=== PATIENT | female | born 1980 | race Hispanic/Latino ===

== ENCOUNTER 2016-11-13 19:32 | Emergency (ER) | payer OTHER ==
[2016-11-13] MEDS ORDERED: Ketorolac Tromethamine 30 MG/ML VIAL ONE (20:17)
[2016-11-13 20:50] LABS: #Eosinphils 0.2 thou/uL (0.0-0.7); #Lymphocytes 2.6 thou/uL (1.20-3.40); #Monocytes 0.6 thou/uL (0.11-0.59); #Neutrophils 10.3 thou/uL (1.40-6.50); %Basophils 0.1 % (0.0-1.0); %Eosinophils 1.2 % (0.0-10.0); %Lymphocytes 18.9 % (21.0-51.0); %Monocytes 4.7 % (0.0-10.0); Hematocrit 36.6 % (36.0-47.0); Mean Platelet Volume 7.2 fL (7.4-10.4); Red Blood Cell (RBC) Count 3.88 mill/uL (4.20-5.40); White Blood Cell (WBC) Count 13.7 thou/uL (4.8-10.8)
[2016-11-13 21:13] LABS: ALT (SGPT) 27 U/L (8-55); AST (SGOT) 18 U/L (5-34); Alkaline Phosphatase 90 U/L (40-150); Anion Gap 13 mmol/L (10-20); BUN (Urea Nitrogen) 13 mg/dL (7.0-18.7); Bilirubin, Total 0.2 mg/dL (0.2-1.2); Calc. Creatinine Clearance 0 mL/min (70-130); Calcium 9.1 mg/dL (7.8-10.44); Carbon Dioxide 24 mmol/L (22-29); Chloride 104 mmol/L (98-107); Estimated GFR-MDRD 66; Globulin 3.7 g/dL (2.4-3.5)
[2016-11-13 21:28] LABS: Bilirubin Negative (Negative); Blood, Urine Small (Negative); Glucose, Urine (Dipstick) Negative (Negative); Ketone, Urine Negative (Negative); Nitrite Negative (Negative); Protein, Urine (Dipstick) Negative (Neg-Trace)
[2016-11-13 21:33] LABS: Bacteria/HPF 1+ HPF (None Seen); Hyaline Casts/LPF 0-3 HYALINE CAST LPF (0-3 Hyaline); WBC/HPF 0-3 HPF (0-3)
--- NOTE | 2016-11-13 21:51 | RAD ---
THREE VIEWS RIGHT ANKLE: Indication: Right ankle pain and swelling. Comparison: None. FINDINGS: No acute fracture or subluxation is evident. There is severe enthesopathic change off the calcaneus. IMPRESSION: No acute osseous abnormality. POS: RODDY
--- NOTE | 2016-11-13 22:00 | ULT ---
DOPPLER VENOUS ULTRASOUND OF THE RIGHT LOWER EXTREMITY: History: Right lower extremity pain and swelling. TECHNIQUE: Flores scale, color Doppler, and vascular duplex with spectral analysis was performed of the deep veno us structures of both lower extremities. The common femoral vein, superficial femoral vein, poplitea l vein, posterior tibial vein, proximal greater saphenous, and proximal profunda veins were assessed bilaterally. FINDINGS: There is normal compression, flow, and augmentation seen within the deep venous structures of the ri ght lower extremity. IMPRESSION: No evidence of DVT within the right lower extremity. POS: RODDY
== END 2016-11-13 22:41 | disposition home or self-care (01) ==
LOC: ERS 19:32
DX: L03.116 Cellulitis of left lower limb (principal); G47.30 Sleep apnea, unspecified; E11.43 Type 2 diabetes mellitus with diabetic autonomic (poly)neuropathy; K31.84 Gastroparesis; I10 Essential (primary) hypertension; J45.909 Unspecified asthma, uncomplicated; F41.9 Anxiety disorder, unspecified; F32.9 Major depressive disorder, single episode, unspecified; Z79.84 Long term (current) use of oral hypoglycemic drugs; Z79.899 Other long term (current) drug therapy
CPT/HCPCS: 36415; 80053; 81003; 81015; 85025; 85379; 85652; 86140; 96372; J1885; J2270

== ENCOUNTER 2016-12-23 10:20 | Emergency (ER) | payer OTHER ==
[2016-12-23 10:46] LABS: Bilirubin Negative (Negative); Blood, Urine Negative (Negative); Glucose, Urine (Dipstick) Negative (Negative); Ketone, Urine Negative (Negative); Nitrite Negative (Negative); Protein, Urine (Dipstick) Trace mg/dL (Neg-Trace)
[2016-12-23 10:47] LABS: Bacteria/HPF 1+ HPF (None Seen); Hyaline Casts/LPF 0-3 HYALINE CAST LPF (0-3 Hyaline)
[2016-12-23 10:57] LABS: RBC/HPF 0-3 HPF (0-3)
[2016-12-23] MEDS ORDERED: Ketorolac Tromethamine 60 MG/2 ML VIAL ONE (11:27)
== END 2016-12-23 11:44 | disposition home or self-care (01) ==
LOC: ERS 10:20
DX: N39.0 Urinary tract infection, site not specified (principal); G47.30 Sleep apnea, unspecified; E11.43 Type 2 diabetes mellitus with diabetic autonomic (poly)neuropathy; K31.84 Gastroparesis; I10 Essential (primary) hypertension; F32.9 Major depressive disorder, single episode, unspecified; F41.9 Anxiety disorder, unspecified; J45.909 Unspecified asthma, uncomplicated; Z87.442 Personal history of urinary calculi; Z87.01 Personal history of pneumonia (recurrent)
CPT/HCPCS: 81003; 81015; 81025; 96372; J1885

== ENCOUNTER 2017-02-01 19:22 | Emergency (ER) | payer OTHER ==
[2017-02-01 21:00] LABS: #Lymphocytes 1.8 thou/uL (1.20-3.40); #Monocytes 0.6 thou/uL (0.11-0.59); #Neutrophils 4.6 thou/uL (1.40-6.50); %Basophils 0.5 % (0.0-1.0); %Eosinophils 0.7 % (0.0-10.0); %Lymphocytes 25.2 % (21.0-51.0); Mean Platelet Volume 7.8 fL (7.4-10.4); Red Blood Cell (RBC) Count 4.21 mill/uL (4.20-5.40)
[2017-02-01 21:21] LABS: ALT (SGPT) 64 U/L (8-55); AST (SGOT) 32 U/L (5-34); Alkaline Phosphatase 100 U/L (40-150); Anion Gap 11 mmol/L (10-20); BUN (Urea Nitrogen) 18 mg/dL (7.0-18.7); Bilirubin, Total 0.4 mg/dL (0.2-1.2); Calc. Creatinine Clearance 0 mL/min (70-130); Calcium 9.3 mg/dL (7.8-10.44); Carbon Dioxide 25 mmol/L (22-29); Chloride 103 mmol/L (98-107); Estimated GFR-MDRD 54; Lipase 28 U/L (8-78); Protein, Total 7.7 g/dL (6.0-8.3)
[2017-02-01] MEDS ORDERED: Metoclopramide HCl 10 MG/2 ML VIAL ONE (21:36)
[2017-02-01 21:46] LABS: Bilirubin Negative (Negative); Blood, Urine Moderate (Negative); Glucose, Urine (Dipstick) Negative (Negative); Ketone, Urine Negative (Negative); Nitrite Negative (Negative); Protein, Urine (Dipstick) Trace mg/dL (Neg-Trace)
[2017-02-01 21:48] LABS: Bacteria/HPF 1+ HPF (None Seen); Hyaline Casts/LPF 0-3 HYALINE CAST LPF (0-3 Hyaline); RBC/HPF 21-50 HPF (0-3)
== END 2017-02-01 23:35 | disposition home or self-care (01) ==
LOC: ERS 19:22
DX: R10.13 Epigastric pain (principal); R10.12 Left upper quadrant pain; R10.11 Right upper quadrant pain; R11.10 Vomiting, unspecified; E11.43 Type 2 diabetes mellitus with diabetic autonomic (poly)neuropathy; K31.84 Gastroparesis; F41.9 Anxiety disorder, unspecified; F32.9 Major depressive disorder, single episode, unspecified; J45.909 Unspecified asthma, uncomplicated; I10 Essential (primary) hypertension; Z79.84 Long term (current) use of oral hypoglycemic drugs; Z79.899 Other long term (current) drug therapy; Z87.442 Personal history of urinary calculi
CPT/HCPCS: 36415; 80053; 81003; 81015; 81025; 83690; 85025; 96365; J2765

== ENCOUNTER 2017-02-14 05:41 | Emergency (ER) | payer OTHER ==
[2017-02-14] MEDS ORDERED: Albuterol Sulfate 2.5 mg/0.5 ml Neb ONE (06:08)
[2017-02-14] MEDS ORDERED: predniSONE 20 MG TAB ONE (07:03)
== END 2017-02-14 07:17 | disposition home or self-care (01) ==
LOC: ERS 05:41
DX: J45.901 Unspecified asthma with (acute) exacerbation (principal); J20.9 Acute bronchitis, unspecified; G47.30 Sleep apnea, unspecified; E11.43 Type 2 diabetes mellitus with diabetic autonomic (poly)neuropathy; K31.84 Gastroparesis; I10 Essential (primary) hypertension; F41.9 Anxiety disorder, unspecified; F32.9 Major depressive disorder, single episode, unspecified; Z79.84 Long term (current) use of oral hypoglycemic drugs; Z79.899 Other long term (current) drug therapy
CPT/HCPCS: J7506; J7611; J7620

== ENCOUNTER 2017-03-26 07:50 | Emergency (ER) | payer OTHER ==
[2017-03-26] MEDS ORDERED: Dexamethasone 4 MG TAB ONE (08:31)
== END 2017-03-26 08:51 | disposition home or self-care (01) ==
LOC: ERS 07:50
DX: J45.901 Unspecified asthma with (acute) exacerbation (principal); I10 Essential (primary) hypertension; E11.43 Type 2 diabetes mellitus with diabetic autonomic (poly)neuropathy; K31.84 Gastroparesis; Z87.442 Personal history of urinary calculi; F41.9 Anxiety disorder, unspecified; F32.9 Major depressive disorder, single episode, unspecified; Z87.01 Personal history of pneumonia (recurrent); Z79.84 Long term (current) use of oral hypoglycemic drugs; Z79.899 Other long term (current) drug therapy
CPT/HCPCS: 94640; J7620; J8540

== ENCOUNTER 2017-04-07 10:28 | Outpatient (CLI) | payer OTHER ==
[2017-04-07] MEDS ORDERED: Iopamidol 370 76% 100 ML VIAL ONE (17:19)
== END 2017-04-07 10:29 | disposition home or self-care (01) ==
LOC: BICCT 10:28
PROVIDERS: ATTEND Family Medicine
DX: A49.02 Methicillin resistant Staphylococcus aureus infection, unspecified site (principal); L02.91 Cutaneous abscess, unspecified; Z98.890 Other specified postprocedural states
CPT/HCPCS: 70491

== ENCOUNTER 2017-05-28 06:46 | Emergency (ER) | payer OTHER ==
[2017-05-28] MEDS ORDERED: predniSONE 20 MG TAB ONE (07:05)
[2017-05-28] MEDS ORDERED: Benzonatate 100 MG CAP ONE (07:31)
[2017-05-28] MEDS ORDERED: Sodium Chloride For Inhalation 0.9% 3 ML NEB ONE (08:09)
[2017-05-28] MEDS ORDERED: Albuterol Sulfate 2.5 mg/0.5 ml Neb ONE (08:09)
== END 2017-05-28 09:00 | disposition home or self-care (01) ==
LOC: ERS 06:46
DX: I10 Essential (primary) hypertension; G47.30 Sleep apnea, unspecified; Z79.899 Other long term (current) drug therapy; E11.43 Type 2 diabetes mellitus with diabetic autonomic (poly)neuropathy; K31.84 Gastroparesis; F41.9 Anxiety disorder, unspecified; F32.9 Major depressive disorder, single episode, unspecified; Z87.442 Personal history of urinary calculi; Z87.01 Personal history of pneumonia (recurrent); J45.901 Unspecified asthma with (acute) exacerbation; Z79.84 Long term (current) use of oral hypoglycemic drugs
CPT/HCPCS: 94644; J7506; J7611; J7620

== ENCOUNTER 2017-12-22 23:50 | Emergency (ER) | payer OTHER ==
[2017-12-23 00:17] LABS: #Eosinphils 0.2 thou/uL (0.0-0.7); #Lymphocytes 1.6 thou/uL (1.20-3.40); #Monocytes 0.6 thou/uL (0.11-0.59); #Neutrophils 15.8 thou/uL (1.40-6.50); %Basophils 0.1 % (0.0-1.0); %Lymphocytes 8.5 % (21.0-51.0); %Monocytes 3.2 % (0.0-10.0); %Neutrophils 87.2 % (42.0-75.0); Hemoglobin 14.6 g/dL (12.0-16.0); Mean Corpuscular HGB CONC 32.8 g/dL (32.0-36.0); Mean Corpuscular Hemoglobin 31.5 pg (27.0-31.0); Mean Platelet Volume 8.4 fL (7.4-10.4); Platelet Count 269 thou/uL (130-400); RBC Distribution Width 12.4 % (11.5-14.5); Red Blood Cell (RBC) Count 4.63 mill/uL (4.20-5.40); White Blood Cell (WBC) Count 18.1 thou/uL (4.8-10.8)
[2017-12-23] MEDS ORDERED: diphenhydrAMINE 50 MG/ML VIAL ONE (00:22)
[2017-12-23] MEDS ORDERED: Metoclopramide HCl 10 MG/2 ML VIAL ONE (00:22)
[2017-12-23 00:33] LABS: BHCG - Serum Negative (NEGATIVE); Pregs Control Background? CLEAR/WHITE (CLR/WHITE); Pregs Control Bar Appear? YES (CONTROL BAR)
[2017-12-23 00:42] LABS: ALT (SGPT) 56 U/L (8-55); AST (SGOT) 60 U/L (5-34); Alkaline Phosphatase 102 U/L (40-150); Anion Gap 12 mmol/L (10-20); BUN (Urea Nitrogen) 20 mg/dL (7.0-18.7); Bilirubin, Total 0.7 mg/dL (0.2-1.2); Calc. Creatinine Clearance 0 mL/min (70-130); Calcium 9.5 mg/dL (7.8-10.44); Carbon Dioxide 20 mmol/L (22-29); Chloride 104 mmol/L (98-107); Estimated GFR-MDRD 67; Globulin 4.1 g/dL (2.4-3.5); Glucose 276 mg/dL (70-105); Potassium 4.2 mmol/L (3.5-5.1); Protein, Total 8.1 g/dL (6.0-8.3); Sodium 132 mmol/L (136-145)
[2017-12-23] MEDS ORDERED: Pantoprazole 40 MG VIAL ONE (00:52)
--- NOTE | 2017-12-23 09:56 | CT ---
PRELIMINARY REPORT/[facility]/EMERGENTY AFTER-HOURS PROCEDURE CT Abdomen and Pelvis With Intravenous Contrast EXAM DATE/TIME: 12/23/2017 12:56 AM CLINICAL HISTORY: 37 years old, female; Pain; Abdominal pain; Other: Leukocytosis; Patient HX: PT reports nausea and vo miting onset tonight at 1900. TECHNIQUE: Axial computed tomography images of the abdomen and pelvis with intravenous contrast. Coronal reformatted images were created and reviewed. COMPARISON: No relevant prior studies available. FINDINGS: Lower thorax: No acute findings. ABDOMEN: Liver: Normal attenuation. No mass. Gallbladder and bile ducts: The gallbladder has been surgically removed. Pancreas: Normal. No ductal dilation. Spleen: No splenomegaly. No masses Adrenals: Normal. No mass. Kidneys and ureters: 7 mm right renal stone. Stomach and bowel: No obstruction. No wall thickening Appendix: No evidence of appendicitis. PELVIS: Bladder: Unremarkable as visualized. Reproductive: Unremarkable as visualized. ABDOMEN and PELVIS: Intraperitoneal space: No free air. No significant fluid collection. Bones/joints: Minimal osteoarthritis of the hips. Soft tissues: Unremarkable. Vasculature: Normal. No abdominal aortic aneurysm. Lymph nodes: No enlarged lymph nodes. IMPRESSION: No evidence of acute intra-abdominal or pelvic pathology. Thank you for allowing us to participate in the care of your patient. Dictated and Authenticated by: Mert Dexter MD 12/23/2017 1:20 AM Central Time ([place] & [place]) FINAL REPORT EMERGENT AFTER HOURS CT OF ABDOMEN AND PELVIS PERFORMED WITH INTRAVENOUS CONTRAST ENHANCEMENT: HISTORY: Abdominal pain , leukocytosis. Nausea and vomiting. COMPARISON: A 06/17/2016 study. FINDINGS: The lung bases are clear of any infiltrative process. There are diffuse fatty changes of the liver. The spleen is within normal limits of size. The pancreas region is unremarkable. The gallbladder h as been removed. Right and left adrenal glands are normal in appearance. There is a nonobstructing mid pole right brice al calculus which measures 6-7 mm. There are no ureteral calculi ureteral calculi demonstrated. The re are no significant periaortic or mesenteric nodes. There are some small nodes near the root of th e mesentery fairly similar to the previous exam. CT OF PELVIS PERFORMED WITH CONTRAST ENHANCEMENT: There are follicles involving the adnexal region. No evidence of any free fluid, adenopathy, or mass . The appendix is normal in appearance. IMPRESSION: 1. Fatty changes of the liver. 2. Nonobstructing 6 mm right renal calculus. 3. No acute abnormalities of the abdomen or pelvis. 4. This report is in agreement with the temporary report issued by [facility]. POS: TRISH
[2017-12-23] MEDS ORDERED: Iopamidol 370 76% 100 ML VIAL ONE (13:51)
== END 2017-12-23 02:22 | disposition home or self-care (01) ==
LOC: ERS 23:50
DX: R11.2 Nausea with vomiting, unspecified (principal); R19.7 Diarrhea, unspecified; G47.30 Sleep apnea, unspecified; E11.9 Type 2 diabetes mellitus without complications; I10 Essential (primary) hypertension; J45.909 Unspecified asthma, uncomplicated; F41.9 Anxiety disorder, unspecified; F32.9 Major depressive disorder, single episode, unspecified; Z87.448 Personal history of other diseases of urinary system; Z79.84 Long term (current) use of oral hypoglycemic drugs; Z79.899 Other long term (current) drug therapy
CPT/HCPCS: 36415; 74177; 80053; 84703; 85025; 96361; 96374; 96375; C9113; J1200; J2765

== ENCOUNTER 2018-04-03 00:20 | Observation (INO) | payer OTHER ==
[2018-04-03] MEDS ORDERED: Ondansetron PF 4 MG/2 ML Vial ONE ×2 (00:57→08:55)
[2018-04-03 01:08] LABS: #Basophils 0.1 thou/uL (0.0-0.2); #Eosinphils 0.1 thou/uL (0.0-0.7); #Lymphocytes 2.3 thou/uL (1.20-3.40); #Monocytes 0.6 thou/uL (0.11-0.59); #Neutrophils 12.2 thou/uL (1.40-6.50); %Basophils 0.4 % (0.0-1.0); %Eosinophils 0.9 % (0.0-10.0); %Lymphocytes 15.1 % (21.0-51.0); %Monocytes 4.2 % (0.0-10.0); %Neutrophils 79.4 % (42.0-75.0); Hemoglobin 13.7 g/dL (12.0-16.0); Mean Corpuscular HGB CONC 33.3 g/dL (32.0-36.0); Mean Corpuscular Hemoglobin 32.4 pg (27.0-31.0); Mean Corpuscular Volume 97.3 fL (78.0-98.0); Mean Platelet Volume 8.1 fL (7.4-10.4); Platelet Count 248 thou/uL (130-400); RBC Distribution Width 11.6 % (11.5-14.5); Red Blood Cell (RBC) Count 4.23 mill/uL (4.20-5.40); White Blood Cell (WBC) Count 15.4 thou/uL (4.8-10.8)
[2018-04-03 01:28] LABS: ALT (SGPT) 73 U/L (8-55); AST (SGOT) 56 U/L (5-34); Albumin 3.9 g/dL (3.5-5.0); Alkaline Phosphatase 113 U/L (40-150); Anion Gap 13 mmol/L (10-20); BUN (Urea Nitrogen) 14 mg/dL (7.0-18.7); Bilirubin, Total 0.5 mg/dL (0.2-1.2); Calc. Creatinine Clearance 0 mL/min (70-130); Calcium 9.7 mg/dL (7.8-10.44); Carbon Dioxide 24 mmol/L (22-29); Chloride 102 mmol/L (98-107); Estimated GFR-MDRD 76; Globulin 4.3 g/dL (2.4-3.5); Glucose 198 mg/dL (70-105); Protein, Total 8.2 g/dL (6.0-8.3); Sodium 135 mmol/L (136-145)
[2018-04-03] MEDS ORDERED: Morphine 4 MG/ML VIAL ONE (02:08)
[2018-04-03] MEDS ORDERED: Prochlorperazine 10 MG/2 ML VIAL IVP SCH (02:15)
[2018-04-03 03:32] LABS: BHCG - Serum Negative (NEGATIVE); Pregs Control Background? CLEAR/WHITE (CLR/WHITE); Pregs Control Bar Appear? YES (CONTROL BAR)
[2018-04-03 05:46] LABS: Bilirubin Negative (Negative); Blood, Urine Moderate (Negative); Clarity CLEAR (Clear); Glucose, Urine (Dipstick) 500 mg/dL (Negative); Leukocyte Negative (Negative); Nitrite Negative (Negative); Protein, Urine (Dipstick) Negative (Neg-Trace)
[2018-04-03 05:49] LABS: Bacteria/HPF None Seen HPF (None Seen); Hyaline Casts/LPF 0-3 HYALINE CAST LPF (0-3 Hyaline); Squamous Epithelial None Seen HPF (0-3); WBC/HPF 0-3 HPF (0-3)
[2018-04-03 05:51] LABS: Specific Gravity, Urine 1.056 (1.002-1.036)
[2018-04-03 05:52] LABS: Pregnancy Test - Urine (BHCG) Negative (Negative)
[2018-04-03 05:53] LABS: Pregu Control Background? CLEAR/WHITE (CLR/WHITE); Pregu Control Bar Appear? YES (CONTROL BAR); Specific Gravity 1.056 (1.002-1.036)
[2018-04-03] MEDS ORDERED: Ketorolac Tromethamine 30 MG/ML VIAL ONE (06:45)
--- NOTE | 2018-04-03 07:27 | CT ---
CT OF THE ABDOMEN AND PELVIS WITHOUT IV CONTRAST: Date: 04/03/18 INDICATION: Severe abdominal pain radiating to the back with associated nausea, vomiting, diarrhea, fever, chills , and malaise. COMPARISON: Prior CT of the abdomen and pelvis dated 12/23/17. FINDINGS: The lung bases are clear. There is stable fatty infiltration of the liver. The gallbladder is surgically absent. Right nephrolithiasis is stable. No ureteral calculus or hydronephrosis is evident. The pancreas, spleen, and adrenal glands are normal appearing. There is normal appendix in the right lower quadrant of the abdomen. There is a 2.5 cm cyst involving the left adnexa, which is slightly smaller than on the prior exam wh ere it measured 4.5 cm. Colon is largely decompressed. The small bowel is normal in caliber. No free fluid is evident. The bladder, rectum, and perirectal soft tissues are unremarkable. No acute osseous abnormality is evident. IMPRESSION: 1. No CT explanation for the patient's abdominal pain. 2. Stable fatty liver. 3. Stable right nephrolithiasis. 4. Slowly involuting left adnexal cyst. POS: BH
[2018-04-03 07:38] LABS: Base Excess-Venous -2.2 mmol/L (-2.0 to 3.0); Bicarbonate (HCO3v) 23.3 mmol/L (22.0-28.0); Calcium, Ionized 1.06 mmol/L (See Comments:); Chloride 104 mmol/L (98-107); Hemoglobin - Calc 13.4 g/dL (12.0-16.0); O2 Tension (PvO2) 38.2 mmHg (35.0-45.0); Potassium 3.9 mmol/L (3.5-5.1); Sodium 136 mmol/L (138-145); T. Carbon Dioxide 24.6 mmol/L (22.0-28.0); pH (Venous) 7.353 (7.320-7.430); vO2 Saturation-calc 69.7 % (60.0-85.0)
--- NOTE | 2018-04-03 07:53 | RAD ---
PORTABLE CHEST 1 VIEW: Date: 04/03/18 Time: 0056 hours HISTORY: Chest pain. FINDINGS: Comparison made with exam of 10/30/16. The heart size is normal. No focal areas of consolidation, pneumothoraces, or pleural effusions are s een. IMPRESSION: No acute process. POS: OFF
[2018-04-03] MEDS ORDERED: Acetaminophen 500 MG TAB ONE (09:08)
[2018-04-03] MEDS ORDERED: Iopamidol 370 76% 100 ML VIAL ONE (09:26)
[2018-04-03] MEDS: NS 0.9% w/ 20 MEQ KCL 1,000 ML IV SCH ×2 (14:19→16:56)
--- NOTE | 2018-04-03 14:25 | ULT ---
BILATERAL LOWER EXTREMITY VENOUS DOPPLER ULTRASOUND: Date: 04/03/18 HISTORY: Bilateral lower extremity edema, left greater than right. TECHNIQUE: Flores scale ultrasound with color flow and spectral Doppler imaging of the deep venous systems of the lower extremities was performed bilaterally. FINDINGS: There is good flow, compression, and augmentation noted in the common femoral, femoral, deep femoral, popliteal, posterior tibial, and greater saphenous veins. There is a 1.7 cm lymph node in the left g roin. IMPRESSION: No evidence of deep venous thrombosis in either lower extremity. POS: OFF
[2018-04-03] MEDS ORDERED: Acetaminophen 325 MG TAB ONE (14:48)
[2018-04-03] MEDS: Acetaminophen 325 MG TAB PO PRN ×2 (14:55→20:46)
--- NOTE | 2018-04-03 15:28 | PDOC.FPRHP ---
- History of Present Illness Chief Complaint: nausea, vomting, abdominal pain History of Present Illness: 37 yo f with pmhx of uncontrolled type 2 diabetes and gastroparesis presents with diffuse abdominal pain, nausea and vomiting that started last night. She has also had loose stools that started last night. She was at her mom's house, ate dinner with the family and several hours later approximately at 2230 starting having abdominal pain. She states that her pain is diffuse and achy. She denies all other sx of a cold, congestion, sorethroat, cough, fever. - Allergies/Adverse Reactions Allergies Allergy/AdvReac Type Severity Reaction Status Date / Time No Known Drug Allergies Allergy Verified 11/12/12 02:41 - Home Medications Medication Instructions Recorded Confirmed Type Lisinopril/Hydrochlorothiazide 1 tab PO DAILY 05/29/16 04/03/18 History [Lisinopril-Hctz 20-25 mg Tab] Venlafaxine HCl [Effexor] 75 mg PO DAILY 05/29/16 04/03/18 History metFORMIN HCl [Glucophage] 500 mg PO BID-WM 05/29/16 04/03/18 History Docusate [Colace] 100 mg PO BIDPRN PRN #60 cap 06/07/16 04/03/18 Rx Albuterol Sulfate [Proair 90 mcg IH Q4HR PRN 04/03/18 04/03/18 History Respiclick] Famotidine [Pepcid] 20 mg PO BID 04/03/18 04/03/18 History Fluticasone/Salmeterol [Advair 1 inh IH BID 04/03/18 04/03/18 History Diskus 250/50] Insulin Glargine,Hum.Rec.Anlog 10 units SQ HS 04/03/18 04/03/18 History [Lantus] Ondansetron HCl [Zofran] 4 mg PO Q6HR PRN 04/03/18 04/03/18 History - History PMHx: Type 2 DM Gastroparesis Hx of MRSA cellulitis Nephrolithiasis s/p stent HTN HLD ELDER Anxiety Morbid Obesity PSHx: Cholecystectomy Tonsillectomy/Adenoidectomy Colposcopy Ureteral stent placement FHx: Diabetes-sister HTN-mother Social: denies smoking, alcohol, drug use - Review of Systems General: denies: fever/chills, weight/appetite/sleep changes ENT: denies: nasal congestion, rhinorrhea Respiratory: denies: cough, congestion, shortness of breath Cardiovascular: denies: chest pain, palpitation Gastrointestinal: reports: nausea, vomiting, other (loose bowels) Skin: denies: rashes, lesions Musculoskeletal: denies: pain, tenderness Neurological: denies: numbness, syncope Psychological: denies: anxiety, depression - Vital signs BP: 120/69 HR: 114 RR: 24 Tmax: 100.9 Pox: 98% on RA - Physical Exam Constitutional: NAD, awake, alert and oriented HEENT: normocephalic and atraumatic, PERRLA, normal nasal mucosa, MMM, oropharynx clear Heart: normal S1/S2, pulses present, no edema (tachycardic) Lungs: no respiratory distress, other (mild wheezing bilaterally) Abdomen: soft, bowel sounds present, no masses/distention, other (diffusely tender, no guarding or rigidity) Neurological: no focal deficit, normal sensation -Skin: erythema of left lower extremity Psychiatric: normal mood and affect FMR H&P: Results - Labs Result Diagrams: 04/04/18 05:07 04/04/18 05:07 Lab results: WBC 15.4 thou/uL (4.8-10.8) H 04/03/18 00:57 Hgb 13.7 g/dL (12.0-16.0) 04/03/18 00:57 Hct 41.2 % (36.0-47.0) 04/03/18 00:57 MCV 97.3 fL (78.0-98.0) 04/03/18 00:57 Plt Count 248 thou/uL (130-400) 04/03/18 00:57 Neutrophils % 79.4 % (42.0-75.0) H 04/03/18 00:57 VBG pCO2 42.0 mmHg (40.0-50.0) 04/03/18 07:35 VBG pO2 38.2 mmHg (35.0-45.0) 04/03/18 07:35 Sodium 135 mmol/L (136-145) L 04/03/18 00:57 Potassium 4.0 mmol/L (3.5-5.1) 04/03/18 00:57 Chloride 102 mmol/L (98-107) 04/03/18 00:57 Carbon Dioxide 24 mmol/L (22-29) 04/03/18 00:57 BUN 14 mg/dL (7.0-18.7) 04/03/18 00:57 Creatinine 0.84 mg/dL (0.6-1.1) 04/03/18 00:57 Glucose 198 mg/dL (70-105) H 04/03/18 00:57 Lactic Acid 2.0 mmol/L (0.5-2.2) 04/03/18 00:55 Calcium 9.7 mg/dL (7.8-10.44) 04/03/18 00:57 Total Bilirubin 0.5 mg/dL (0.2-1.2) 04/03/18 00:57 AST 56 U/L (5-34) H 04/03/18 00:57 ALT 73 U/L (8-55) H 04/03/18 00:57 Alkaline Phosphatase 113 U/L (40-150) 04/03/18 00:57 Serum Total Protein 8.2 g/dL (6.0-8.3) 04/03/18 00:57 Albumin 3.9 g/dL (3.5-5.0) 04/03/18 00:57 Lipase 35 U/L (8-78) 04/03/18 00:55 Urine Ketones 15 mg/dL (Negative) H 04/03/18 05:18 Urine Blood Moderate (Negative) H 04/03/18 05:18 Urine Nitrite Negative (Negative) 04/03/18 05:18 Ur Leukocyte Esterase Negative (Negative) 04/03/18 05:18 Urine RBC 11-20 HPF (0-3) H 04/03/18 05:18 Urine WBC 0-3 HPF (0-3) 04/03/18 05:18 Ur Squamous Epith Cells None Seen HPF (0-3) 04/03/18 05:18 Urine Bacteria None Seen HPF (None Seen) 04/03/18 05:18 - Radiology Interpretation CT scan - abdomen Status: image reviewed by me, report reviewed by me CT scan - pelvis Status: image reviewed by me, report reviewed by me (fatty liver, right nephrolithiasis, left adnexal cyst) FMR H&P: A/P - Problem List (1) Sepsis due to cellulitis Current Visit: Yes Status: Acute Code(s): L03.90 - CELLULITIS, UNSPECIFIED; A41.9 - SEPSIS, UNSPECIFIED ORGANISM (2) Hyperglycemia due to type 2 diabetes mellitus Current Visit: Yes Status: Acute Code(s): E11.65 - TYPE 2 DIABETES MELLITUS WITH HYPERGLYCEMIA (3) Gastroparesis due to DM Current Visit: No Status: Chronic Code(s): E11.43 - TYPE 2 DIABETES W DIABETIC AUTONOMIC (POLY)NEUROPATHY; K31.84 - GASTROPARESIS (4) Diabetes mellitus type 2 in obese Current Visit: No Status: Chronic Code(s): E11.9 - TYPE 2 DIABETES MELLITUS WITHOUT COMPLICATIONS; E66.9 - OBESITY, UNSPECIFIED (5) Hypertension Current Visit: No Status: Acute Code(s): I10 - ESSENTIAL (PRIMARY) HYPERTENSION Qualifiers: (6) Hyperlipidemia Current Visit: No Status: Acute Code(s): E78.5 - HYPERLIPIDEMIA, UNSPECIFIED (7) Morbid obesity with BMI of 40.0-44.9, adult Current Visit: No Status: Chronic Code(s): E66.01 - MORBID (SEVERE) OBESITY DUE TO EXCESS CALORIES; Z68.41 - BODY MASS INDEX (BMI) 40.0-44.9, ADULT (8) ELDER (obstructive sleep apnea) Current Visit: No Status: Chronic Code(s): G47.33 - OBSTRUCTIVE SLEEP APNEA (ADULT) (PEDIATRIC) (9) Anxiety Current Visit: Yes Status: Acute Code(s): F41.9 - ANXIETY DISORDER, UNSPECIFIED (10) Mild dehydration Current Visit: Yes Status: Acute Code(s): E86.0 - DEHYDRATION (11) ELDER (obstructive sleep apnea) Current Visit: Yes Status: Acute Code(s): G47.33 - OBSTRUCTIVE SLEEP APNEA ( ADULT) (PEDIATRIC) - Plan 37 yo f with phx of MRSA cellulitis and type 2 diabetes (uncontrolled) presents with diffuse abdominal pain, n/v, admitted for sepsis 2/2 cellulitis of left lower extremity. #Sepsis 2/2 cellulitis -erythema and warmth of left lower extremity with hx of recurrent mrsa cellulitis -started pt on vanc and cefepime -provided an additional 1L of NS with 20KCL to meet 30ml/kg sepsis resuscitation -started on maitenance fluids d/t volume depletion/dehydration -blood and urine cultures sent -repeat cbc, bmp in the am -lactate normal -ordered procalcitonin #Gastroparesis- -Fluid resuscitation and IV/po zofran prn nausea #Dehydration- -mild -provided an additional 1L of NS with 20KCL to meet 30ml/kg sepsis resuscitation -started on maitenance fluids d/t volume depletion/dehydration -monitor I/Os and urine output #Hyperglycemia- -acchuchecks ACHS -hba1c ordered -continue metformin 1000mg BID -hyperglycemia protocol #Type 2 diabetes, uncontrolled -blood sugar in the 300s -blood glucose checks ACHS -hyperglycemia protocol -continue metformin 1000mg BID #HTN -continue home medications #HLD -continue home medications #Anxiety -continue home medications #ELDER -cpap at night FMR H&P: Upper Level - Plan Date/Time: 04/03/18 1300 I, [], have evaluated this patient and agree with findings/plan as outlined by dental intern resident. Pertinent changes/additions are listed here. Addendum - Attending - Attending Attestation Date/Time: 04/04/18 [id number] I personally evaluated the patient and discussed the management with Dr. Fermin on day of admission (04/03) I agree with and repeated the History, Examination, Assessment and Plan documented above with any addition or exceptions noted below. Sepsis 2/2 cellulitis vs AGE vs gastroparesis. Will tx empirically and monitor.
[2018-04-03] MEDS ORDERED: Ondansetron ODT 4 MG TAB ONE (15:35)
[2018-04-03] MEDS: Ondansetron ODT 4 MG TAB PO PRN ×2 (15:40→20:45)
[2018-04-03] MEDS ORDERED: Dextrose 50% Abboject 50 ML SYRINGE SLOW IVP PRN (15:47)
[2018-04-03] MEDS ORDERED: Dextrose 5% in Water 1,000 ML IV PRN (15:47)
[2018-04-03] MEDS ORDERED: Vancomycin HCl 2.5 GM in Sodium Chloride 0.9% 500 ML IVPB SCH (16:00)
[2018-04-03] MEDS: Cefepime 1 GM in Sodium Chloride 0.9% 100 ML IVPB SCH (16:11)
[2018-04-03] MEDS: Sodium Chloride 0.9% 1,000 ML IV SCH ×2 (16:12→23:35)
[2018-04-03 16:30] VITALS: BMI 43.5
[2018-04-03] MEDS: HumaLOG 300 UNITS/3 ML VIAL SC PRN (17:19)
[2018-04-03] MEDS ORDERED: PROVENTIL INHALER 6.7 G (200 INHALATIONS) INH PRN (17:45)
[2018-04-03] MEDS: Famotidine 20 MG TAB PO SCH (20:45)
[2018-04-03] MEDS ORDERED: Insulin Glargine 10 UNITS in Pre-Filled Syringe 1 EACH SC SCH (21:00)
[2018-04-03] MEDS ORDERED: Vancomycin HCl 1 GM in Sodium Chloride 0.9% 250 ML 300 ML IVPB SCH (21:00)
[2018-04-03] MEDS ORDERED: Non-Formulary Item 1 EACH (Fluticasone/Salmeterol [Advair Diskus 250/50] 1 INH) IH SCH (21:00)
[2018-04-03] MEDS: Mometasone/Formoterol 120 PUFF INHALER INH SCH (23:00)
[2018-04-04] MEDS: Cefepime 1 GM in Sodium Chloride 0.9% 100 ML IVPB SCH ×2 (03:22→14:01)
[2018-04-04] MEDS: Vancomycin HCl 1.75 GM in Sodium Chloride 0.9% 500 ML IVPB SCH ×2 (04:08→15:43)
[2018-04-04] MEDS: Acetaminophen 325 MG TAB PO PRN ×2 (04:14→16:33)
--- NOTE | 2018-04-04 06:15 | PDOC.FM ---
- Subjective Subjective: Denies nausea/vomiting since yesterday. Endorses mild left leg tenderness with erythema extending further up leg to right above the knee. Sitting in chair resting comfortably. - Objective MAR Reviewed: Yes Vital Signs & Weight: Vital Signs (12 hours) Temp Pulse Resp BP BP Pulse Ox 04/04/18 03:42 105 H 20 04/04/18 03:22 98.6 F 97 18 124/62 98 04/03/18 23:29 98.1 F 105 H 18 134/60 99 04/03/18 19:30 100 F H 115 H 21 H 142/77 H 97 Weight Weight 122.47 kg I&O: 04/02/18 04/03/18 04/04/18 06:59 06:59 06:59 Intake Total 750 Balance 750 Result Diagrams: 04/04/18 05:07 04/04/18 05:07 Phys Exam - Physical Examination Constitutional: NAD Respiratory: no wheezing, no rales, clear to auscultation bilateral Cardiovascular: no significant murmur tachycardia Gastrointestinal: soft, non-tender, no distention, positive bowel sounds Musculoskeletal: no edema, pulses present Neurological: non-focal, normal sensation Psychiatric: normal affect, A&O x 3 Skin: normal turgor, cap refill <2 seconds Deviation from normal: faint erythema to 2 inches above the left knee, warmth of left leg Dx/Plan (1) Sepsis due to cellulitis Code(s): L03.90 - CELLULITIS, UNSPECIFIED; A41.9 - SEPSIS, UNSPECIFIED ORGANISM Status: Acute (2) Hyperglycemia due to type 2 diabetes mellitus Code(s): E11.65 - TYPE 2 DIABETES MELLITUS WITH HYPERGLYCEMIA Status: Acute (3) Gastroparesis due to DM Code(s): E11.43 - TYPE 2 DIABETES W DIABETIC AUTONOMIC (POLY)NEUROPATHY; K31.84 - GASTROPARESIS Status: Chronic (4) Diabetes mellitus type 2 in obese Code(s): E11.9 - TYPE 2 DIABETES MELLITUS WITHOUT COMPLICATIONS; E66.9 - OBESITY , UNSPECIFIED Status: Chronic (5) Hypertension Code(s): I10 - ESSENTIAL (PRIMARY) HYPERTENSION Status: Acute Qualifiers: (6) Hyperlipidemia Code(s): E78.5 - HYPERLIPIDEMIA, UNSPECIFIED Status: Acute (7) Morbid obesity with BMI of 40.0-44.9, adult Code(s): E66.01 - MORBID (SEVERE) OBESITY DUE TO EXCESS CALORIES; Z68.41 - BODY MASS INDEX (BMI) 40.0-44.9, ADULT Status: Chronic (8) ELDER (obstructive sleep apnea) Code(s): G47.33 - OBSTRUCTIVE SLEEP APNEA (ADULT) (PEDIATRIC) Status: Chronic (9) Anxiety Code(s): F41.9 - ANXIETY DISORDER, UNSPECIFIED Status: Acute (10) Mild dehydration Code(s): E86.0 - DEHYDRATION Status: Acute (11) ELDER (obstructive sleep apnea) Code(s): G47.33 - OBSTRUCTIVE SLEEP APNEA (ADULT) (PEDIATRIC) Status: Acute - Plan Plan: 37 yo f with phx of MRSA cellulitis and type 2 diabetes (uncontrolled) presents with diffuse abdominal pain, n/v, admitted for sepsis 2/2 cellulitis of left lower extremity, gastroparesis, and mild dehydration. #Sepsis 2/2 cellulitis -erythema and warmth of left lower extremity with hx of recurrent mrsa cellulitis -continue vanc 04/03 and cefepime 04/03 -consider an additional 1L fluid bolus, pt still tachycardic, UOP pending from nurse -blood and urine cultures sent and pending -repeat cbc, bmp daily, downtrending wbc, hypokalemia replaced -lactate normal -procalcitonin wnl #Gastroparesis- -Fluid resuscitation and IV/po zofran prn nausea and po reglan per home medication list on centricity #Dehydration- -mild -provided an additional 1L of NS with 20KCL to meet 30ml/kg sepsis resuscitation -started on maitenance fluids d/t volume depletion/dehydration -monitor I/Os and urine output -pt currently tachycardic overnight and UOP pending from nurse #Hyperglycemia- -acchuchecks ACHS -hba1c ordered -continue metformin 1000mg BID -hyperglycemia protocol #Type 2 diabetes, uncontrolled -blood sugar in the 300s -blood glucose checks ACHS -hyperglycemia protocol -continue metformin 1000mg BID -increased Levemir to 12 U qAM #HTN -continue home medications #HLD -continue home medications #Anxiety -continue home medications #ELDER -cpap at night Addendum - Attending - Attending Attestation Date/Time: 04/04/18 1016 I personally evaluated the patient and discussed the management with Dr. Fermin. I agree with and repeated the History, Examination, Assessment and Plan documented above with any addition or exceptions noted below. Improved from yesterday. Stable LLE exam.
[2018-04-04 06:19] LABS: Anion Gap 10 mmol/L (10-20); BUN (Urea Nitrogen) 11 mg/dL (7.0-18.7); Calc. Creatinine Clearance 189 mL/min (70-130); Calcium 7.7 mg/dL (7.8-10.44); Carbon Dioxide 21 mmol/L (22-29); Chloride 108 mmol/L (98-107); Estimated GFR-MDRD 83; Glucose 173 mg/dL (70-105); Hemoglobin 10.8 g/dL (12.0-16.0); Hypochromia SLIGHT = 6-15 cells (100X) (0-5/hpf); Lymphocytes 14 % (21-51); MDiff Complete? YES; Mean Corpuscular HGB CONC 32.9 g/dL (32.0-36.0); Mean Corpuscular Hemoglobin 32.5 pg (27.0-31.0); Mean Corpuscular Volume 98.6 fL (78.0-98.0); Mean Platelet Volume 8.2 fL (7.4-10.4); Monocytes 1 % (0-10); Neutrophil 85 % (42-75); Platelet Count 178 thou/uL (130-400); Platelet Morphology Comment Appears Adequate; Potassium 3.8 mmol/L (3.5-5.1); RBC Distribution Width 11.8 % (11.5-14.5); Red Blood Cell (RBC) Count 3.32 mill/uL (4.20-5.40); Sodium 135 mmol/L (136-145); White Blood Cell (WBC) Count 12.4 thou/uL (4.8-10.8)
[2018-04-04] MEDS ORDERED: Docusate 100 MG CAP PO PRN (06:21)
[2018-04-04] MEDS: HumaLOG 300 UNITS/3 ML VIAL SC PRN ×2 (06:38→11:03)
[2018-04-04] MEDS: Sodium Chloride 0.9% 1,000 ML IV SCH ×3 (07:18→22:54)
[2018-04-04] MEDS: NS 0.9% w/ 20 MEQ KCL 1,000 ML IV SCH (07:19)
[2018-04-04] MEDS: Lisinopril/Hydrochlorothiazide 20/25 mg Tablet PO SCH (08:23)
[2018-04-04] MEDS: Famotidine 20 MG TAB PO SCH ×2 (08:23→20:48)
[2018-04-04] MEDS: metFORMIN 500 MG TAB PO SCH ×2 (08:23→15:46)
[2018-04-04] MEDS: Enoxaparin Sodium 40 MG/0.4 ML SYRINGE SC SCH (08:24)
[2018-04-04] MEDS ORDERED: Levemir Flexpen 100 UNITS/ML PEN SC SCH (09:00)
[2018-04-04] MEDS ORDERED: HYDROcodone/Acetaminophen 5/325 mg Tablet PO SCH (10:15)
[2018-04-04] MEDS: Ondansetron ODT 4 MG TAB PO PRN ×2 (10:26→15:46)
[2018-04-04] MEDS: Mometasone/Formoterol 120 PUFF INHALER INH SCH ×2 (11:22→20:38)
[2018-04-04] MEDS: Ibuprofen 800 MG TAB PO PRN ×2 (15:46→20:48)
[2018-04-04] MEDS: Metoclopramide HCl 10 MG TAB PO PRN (20:48)
[2018-04-04] MEDS: Atorvastatin Calcium 10 MG TAB PO SCH (20:48)
[2018-04-04] MEDS ORDERED: Insulin Glargine 10 UNITS in Pre-Filled Syringe 1 EACH SC SCH (21:00)
[2018-04-04] MEDS ORDERED: Simvastatin 20 MG TAB PO SCH (21:00)
[2018-04-05] MEDS: Cefepime 1 GM in Sodium Chloride 0.9% 100 ML IVPB SCH ×2 (02:57→14:12)
[2018-04-05] MEDS: Ondansetron ODT 4 MG TAB PO PRN ×3 (02:58→16:48)
[2018-04-05 03:43] LABS: Vancomycin, Trough 13.7 ug/mL
[2018-04-05 03:46] LABS: Anion Gap 10 mmol/L (10-20); BUN (Urea Nitrogen) 12 mg/dL (7.0-18.7); Calc. Creatinine Clearance 189 mL/min (70-130); Calcium 7.7 mg/dL (7.8-10.44); Carbon Dioxide 22 mmol/L (22-29); Chloride 109 mmol/L (98-107); Estimated GFR-MDRD 83; Glucose 141 mg/dL (70-105); Potassium 3.5 mmol/L (3.5-5.1); Sodium 137 mmol/L (136-145)
[2018-04-05 03:48] LABS: Band 10 % (5-11); Eosinophils 2 % (0-10); Hemoglobin 10.6 g/dL (12.0-16.0); Lymphocytes 22 % (21-51); MDiff Complete? YES; Mean Corpuscular HGB CONC 33.1 g/dL (32.0-36.0); Mean Corpuscular Hemoglobin 32.7 pg (27.0-31.0); Mean Corpuscular Volume 98.9 fL (78.0-98.0); Mean Platelet Volume 7.8 fL (7.4-10.4); Monocytes 5 % (0-10); Neutrophil 61 % (42-75); Platelet Count 154 thou/uL (130-400); Platelet Morphology Comment Appears Adequate; RBC Distribution Width 11.7 % (11.5-14.5); Red Blood Cell (RBC) Count 3.25 mill/uL (4.20-5.40); White Blood Cell (WBC) Count 9.6 thou/uL (4.8-10.8)
[2018-04-05] MEDS: Vancomycin HCl 1.75 GM in Sodium Chloride 0.9% 500 ML IVPB SCH ×2 (04:18→15:25)
[2018-04-05] MEDS: Acetaminophen 325 MG TAB PO PRN ×2 (06:30→16:49)
--- NOTE | 2018-04-05 06:48 | PDOC.FM ---
- Subjective Subjective: Complaining of worsening nausea and inability to eat solids yesterday. Endorses mild pain in left lower extremity but improved. - Objective MAR Reviewed: Yes Vital Signs & Weight: Vital Signs (12 hours) Temp Pulse Resp BP Pulse Ox 04/05/18 04:18 97.8 F 85 18 127/77 100 04/04/18 20:38 77 18 99 04/04/18 19:17 98.0 F 77 12 135/78 99 Weight Weight 122.47 kg I&O: 04/03/18 04/04/18 04/05/18 06:59 06:59 06:59 Intake Total 1490 4288 Output Total 750 1750 Balance 740 3048 Result Diagrams: 04/05/18 03:17 04/05/18 03:17 Phys Exam - Physical Examination Constitutional: NAD Respiratory: no wheezing, no rales, clear to auscultation bilateral Cardiovascular: RRR, no significant murmur Gastrointestinal: soft, non-tender, no distention hypoactive bowel sounds Musculoskeletal: no edema mild erythema to mid avila Neurological: non-focal, normal sensation Psychiatric: normal affect, A&O x 3 Skin: normal turgor, cap refill <2 seconds Dx/Plan (1) Sepsis due to cellulitis Code(s): L03.90 - CELLULITIS, UNSPECIFIED; A41.9 - SEPSIS, UNSPECIFIED ORGANISM Status: Acute (2) Hyperglycemia due to type 2 diabetes mellitus Code(s): E11.65 - TYPE 2 DIABETES MELLITUS WITH HYPERGLYCEMIA Status: Acute (3) Gastroparesis due to DM Code(s): E11.43 - TYPE 2 DIABETES W DIABETIC AUTONOMIC (POLY)NEUROPATHY; K31.84 - GASTROPARESIS Status: Chronic (4) Diabetes mellitus type 2 in obese Code(s): E11.9 - TYPE 2 DIABETES MELLITUS WITHOUT COMPLICATIONS; E66.9 - OBESITY , UNSPECIFIED Status: Chronic (5) Hypertension Code(s): I10 - ESSENTIAL (PRIMARY) HYPERTENSION Status: Acute Qualifiers: (6) Hyperlipidemia Code(s): E78.5 - HYPERLIPIDEMIA, UNSPECIFIED Status: Acute (7) Morbid obesity with BMI of 40.0-44.9, adult Code(s): E66.01 - MORBID (SEVERE) OBESITY DUE TO EXCESS CALORIES; Z68.41 - BODY MASS INDEX (BMI) 40.0-44.9, ADULT Status: Chronic (8) ELDER (obstructive sleep apnea) Code(s): G47.33 - OBSTRUCTIVE SLEEP APNEA (ADULT) (PEDIATRIC) Status: Chronic (9) Anxiety Code(s): F41.9 - ANXIETY DISORDER, UNSPECIFIED Status: Acute (10) Mild dehydration Code(s): E86.0 - DEHYDRATION Status: Acute (11) ELDER (obstructive sleep apnea) Code(s): G47.33 - OBSTRUCTIVE SLEEP APNEA (ADULT) (PEDIATRIC) Status: Acute - Plan Plan: 37 yo f with phx of MRSA cellulitis and type 2 diabetes (uncontrolled) presents with diffuse abdominal pain, n/v, admitted for sepsis 2/2 cellulitis of left lower extremity, gastroparesis, and mild dehydration. #Sepsis 2/2 cellulitis -erythema and warmth of left lower extremity with hx of recurrent mrsa cellulitis -continue vanc 2 and cefepime 2/12 today since patient not tolerating po -likely transition to clinda or bactrim tomorrow if improved; would consider a longer course of about 14 since cellulitis is recurrent -pt may need suppressive therapy outpatient for recurrent cellulitis -blood and urine cultures sent and pending -repeat cbc, bmp daily, downtrending wbc, hypokalemia replaced -lactate normal -procalcitonin wnl #Gastroparesis with persistent nausea -will order h. pylori and try a GI cocktail -will start her on protonix daily -IV/po zofran prn nausea and po reglan per home medication list on centricity #Dehydration, resolved -monitor I/Os and urine output #Hyperglycemia- -acchuchecks ACHS -hba1c ordered -continue metformin 1000mg BID -hyperglycemia protocol -increased lantus to 12 daily #Type 2 diabetes, uncontrolled -blood sugar in the 300s -blood glucose checks ACHS -hyperglycemia protocol -continue metformin 1000mg BID -increased Lantus to 12 U qAM #HTN -continue home medications #HLD -continue home medications #Anxiety -continue home medications #ELDER -cpap at night Addendum - Attending - Attending Attestation Date/Time: 04/05/18 7125 I personally evaluated the patient and discussed the management with Dr. Fermin. I agree with and repeated the History, Examination, Assessment and Plan documented above with any addition or exceptions noted below. Patient with persistent nausea and vomiting. Now with some slight hematemesis suggestive of MW tear. Will plan GI cocktail and if no improvement d/w GI. Her cellulitis is improving and sepsis is resolved. Delay transition to PO antibiotics due to above.
[2018-04-05] MEDS: Mometasone/Formoterol 120 PUFF INHALER INH SCH ×2 (08:14→18:34)
[2018-04-05] MEDS: metFORMIN 500 MG TAB PO SCH ×2 (08:37→16:49)
[2018-04-05] MEDS: Lisinopril/Hydrochlorothiazide 20/25 mg Tablet PO SCH (08:38)
[2018-04-05] MEDS: Famotidine 20 MG TAB PO SCH ×2 (08:38→20:36)
[2018-04-05] MEDS: Enoxaparin Sodium 40 MG/0.4 ML SYRINGE SC SCH (08:39)
[2018-04-05] MEDS: Sodium Chloride 0.9% 1,000 ML IV SCH (08:41)
[2018-04-05] MEDS ORDERED: Lidocaine 2% Viscous Solution 10 ML, Aluminum & Magnesium Hydroxide 30 ML SSW SCH (08:45)
[2018-04-05] MEDS: Insulin Glargine 12 UNITS in Pre-Filled Syringe 1 EACH SC SCH (10:34)
[2018-04-05] MEDS ORDERED: hydrOXYzine 25 MG TAB PO PRN (19:53)
[2018-04-05] MEDS: Atorvastatin Calcium 10 MG TAB PO SCH (20:36)
[2018-04-05] MEDS: Metoclopramide HCl 10 MG TAB PO PRN (20:40)
[2018-04-06] MEDS: Sodium Chloride 0.9% 1,000 ML IV SCH ×4 (00:41→13:34)
[2018-04-06] MEDS: Cefepime 1 GM in Sodium Chloride 0.9% 100 ML IVPB SCH ×2 (03:07→13:35)
[2018-04-06] MEDS: Vancomycin HCl 1.75 GM in Sodium Chloride 0.9% 500 ML IVPB SCH ×2 (04:10→13:35)
[2018-04-06 06:00] LABS: Anion Gap 12 mmol/L (10-20); BUN (Urea Nitrogen) 7 mg/dL (7.0-18.7); Calc. Creatinine Clearance 202 mL/min (70-130); Calcium 7.9 mg/dL (7.8-10.44); Carbon Dioxide 21 mmol/L (22-29); Chloride 106 mmol/L (98-107); Estimated GFR-MDRD 89; Glucose 104 mg/dL (70-105); Potassium 3.3 mmol/L (3.5-5.1); Sodium 136 mmol/L (136-145)
[2018-04-06 06:05] LABS: Band 6 % (5-11); Hemoglobin 10.8 g/dL (12.0-16.0); Lymphocytes 24 % (21-51); MDiff Complete? YES; Mean Corpuscular HGB CONC 32.9 g/dL (32.0-36.0); Mean Corpuscular Hemoglobin 32.4 pg (27.0-31.0); Mean Corpuscular Volume 98.5 fL (78.0-98.0); Mean Platelet Volume 8.3 fL (7.4-10.4); Monocytes 8 % (0-10); Neutrophil 62 % (42-75); Platelet Count 196 thou/uL (130-400); RBC Distribution Width 11.5 % (11.5-14.5); Red Blood Cell (RBC) Count 3.34 mill/uL (4.20-5.40); White Blood Cell (WBC) Count 7.8 thou/uL (4.8-10.8)
--- NOTE | 2018-04-06 06:38 | PDOC.FM ---
- Subjective Subjective: Pt was anxious overnight, but improved after hydroxyzine. She also still complains of persistent nausea and occasional vomiting of phlegm. - Objective Vital Signs & Weight: Vital Signs (12 hours) Temp Pulse Resp BP Pulse Ox 04/06/18 04:00 98.2 F 93 20 141/102 H 98 04/05/18 23:47 98.2 F 85 18 127/75 99 04/05/18 19:40 97.8 F 87 18 145/83 H 99 04/05/18 18:34 75 18 99 Weight Weight 122.47 kg I&O: 04/04/18 04/05/18 04/06/18 06:59 06:59 06:59 Intake Total 1490 4288 4506 Output Total 750 1750 600 Balance 740 9945 4376 Result Diagrams: 04/06/18 04:41 04/06/18 04:41 Phys Exam - Physical Examination Constitutional: NAD HEENT: PERRLA, moist MMs Respiratory: no wheezing, no rales, clear to auscultation bilateral Cardiovascular: RRR, no significant murmur Gastrointestinal: soft, non-tender, no distention hypoactive bowel sounds Musculoskeletal: no edema Neurological: non-focal, normal sensation Psychiatric: normal affect, A&O x 3 Deviation from normal: erythema of left lower extremity to mid avila Dx/Plan (1) Sepsis due to cellulitis Code(s): L03.90 - CELLULITIS, UNSPECIFIED; A41.9 - SEPSIS, UNSPECIFIED ORGANISM Status: Acute (2) Hyperglycemia due to type 2 diabetes mellitus Code(s): E11.65 - TYPE 2 DIABETES MELLITUS WITH HYPERGLYCEMIA Status: Acute (3) Gastroparesis due to DM Code(s): E11.43 - TYPE 2 DIABETES W DIABETIC AUTONOMIC (POLY)NEUROPATHY; K31.84 - GASTROPARESIS Status: Chronic (4) Diabetes mellitus type 2 in obese Code(s): E11.9 - TYPE 2 DIABETES MELLITUS WITHOUT COMPLICATIONS; E66.9 - OBESITY , UNSPECIFIED Status: Chronic (5) Hypertension Code(s): I10 - ESSENTIAL (PRIMARY) HYPERTENSION Status: Acute Qualifiers: (6) Hyperlipidemia Code(s): E78.5 - HYPERLIPIDEMIA, UNSPECIFIED Status: Acute (7) Morbid obesity with BMI of 40.0-44.9, adult Code(s): E66.01 - MORBID (SEVERE) OBESITY DUE TO EXCESS CALORIES; Z68.41 - BODY MASS INDEX (BMI) 40.0-44.9, ADULT Status: Chronic (8) ELDER (obstructive sleep apnea) Code(s): G47.33 - OBSTRUCTIVE SLEEP APNEA (ADULT) (PEDIATRIC) Status: Chronic (9) Anxiety Code(s): F41.9 - ANXIETY DISORDER, UNSPECIFIED Status: Acute (10) Mild dehydration Code(s): E86.0 - DEHYDRATION Status: Acute (11) ELDER (obstructive sleep apnea) Code(s): G47.33 - OBSTRUCTIVE SLEEP APNEA (ADULT) (PEDIATRIC) Status: Acute - Plan Plan: 37 yo f with phx of MRSA cellulitis and type 2 diabetes (uncontrolled) presents with diffuse abdominal pain, n/v, admitted for sepsis 2/2 cellulitis of left lower extremity, gastroparesis, and mild dehydration. #Sepsis 2/2 cellulitis -erythema and warmth of left lower extremity with hx of recurrent mrsa cellulitis -If pt tolerates breakfast, will transition to Bactrim d/t hx of MRSA and urine cx + for group b strep; prior cx of MRSA sens to bactrim -pt may need suppressive therapy outpatient for recurrent cellulitis -blood cx neg >48 hours -urine cx + for group b strep but less than 10,000 CFU and asymptomatic -repeat cbc, bmp daily -lactate normal -procalcitonin wnl #Gastroparesis with persistent nausea -h. pylori pending -gi cocktail yesterday helped -protonix daily -IV/po zofran prn nausea and po reglan per home medication list on centricity -abdom CT completed on admission, hx of george, no acute findings other than an adnexal cyst #Hypokalemia- -replaced and will recheck at noon #Dehydration, resolved -monitor I/Os and urine output #Hyperglycemia, resolved -acchuchecks ACHS; hyper and hypoglycemia protocol ordered -diabetes diet education provided by dietitian -continue metformin 1000mg BID -increased lantus to 12 daily #Type 2 diabetes, controlled -blood sugars controlled overnight -blood glucose checks ACHS -continue metformin 1000mg BID -continue Lantus to 12 U qAM #HTN -continue home medications #HLD -continue home medications #Anxiety -continue home medications #ELDER -cpap at night Addendum - Attending - Attending Attestation Date/Time: 04/06/18 7833 I personally evaluated the patient and discussed the management with Dr. Fermin. I agree with and repeated the History, Examination, Assessment and Plan documented above with any addition or exceptions noted below. No f/c/cp/sob. Improved pain in RLE. Erythema continues to improve. Plan transition to PO as she tolerated breakfast without difficulty and hopeful discharge.
[2018-04-06] MEDS: Mometasone/Formoterol 120 PUFF INHALER INH SCH (07:11)
[2018-04-06] MEDS: Insulin Glargine 12 UNITS in Pre-Filled Syringe 1 EACH SC SCH (09:22)
[2018-04-06] MEDS: Acetaminophen 325 MG TAB PO PRN (09:25)
[2018-04-06] MEDS: Famotidine 20 MG TAB PO SCH (09:25)
[2018-04-06] MEDS: Enoxaparin Sodium 40 MG/0.4 ML SYRINGE SC SCH (09:25)
[2018-04-06] MEDS: Lisinopril/Hydrochlorothiazide 20/25 mg Tablet PO SCH (09:25)
[2018-04-06] MEDS: metFORMIN 500 MG TAB PO SCH (09:25)
[2018-04-06] MEDS ORDERED: Sulfameth/Trimethoprim DS 800-160mg TAB PO SCH ×2 (11:00→21:00)
[2018-04-06 11:53] VITALS: BP 132/73; TEMP 98.3
[2018-04-06] MEDS ORDERED: Potassium Chloride 20 MEQ TAB PO SCH (13:45)
== END 2018-04-06 14:22 | disposition home or self-care (01) ==
LOC: ERS 00:20 → ERHOLD 08:49 → 2SW 16:19
PROVIDERS: ADMIT Family Medicine; ATTEND Family Medicine
DX: E11.43 Type 2 diabetes mellitus with diabetic autonomic (poly)neuropathy (principal); K31.84 Gastroparesis; L03.116 Cellulitis of left lower limb; B95.62 Methicillin resistant Staphylococcus aureus infection as the cause of diseases classified elsewhere; E11.65 Type 2 diabetes mellitus with hyperglycemia; I10 Essential (primary) hypertension; E78.5 Hyperlipidemia, unspecified; G47.33 Obstructive sleep apnea (adult) (pediatric); F41.9 Anxiety disorder, unspecified; E66.01 Morbid (severe) obesity due to excess calories; Z68.41 Body mass index [BMI] 40.0-44.9, adult; E86.0 Dehydration; Z87.442 Personal history of urinary calculi; Z90.49 Acquired absence of other specified parts of digestive tract; Z90.89 Acquired absence of other organs; Z99.89 Dependence on other enabling machines and devices; Z79.51 Long term (current) use of inhaled steroids; Z79.4 Long term (current) use of insulin; Z79.899 Other long term (current) drug therapy; Z98.890 Other specified postprocedural states
CPT/HCPCS: 36415; 36416; 71045; 74177; 80048; 80053; 80202; 81003; 81015; 81025; 82330; 82803; 83605; 83690; 84145; 84484; 84703; 85007; 85025; 85027; 87040; 87077; 87086; 87338; 87633; 87804; 93005; 93970; 94640; 94664; 96361; 96365; 96366; 96367; 96372; 96374; 96375; 96376; G0378; J0692; J0780; J1650; J1815; J1825; J1885; J2270; J2405; J3370; J7050; J7620; J8597; Q0162; Q9967

== ENCOUNTER 2018-05-28 14:21 | Emergency (ER) | payer OTHER ==
--- NOTE | 2018-05-28 15:24 | RAD ---
XR Hand Rt 3 View STANDARD History: [Injury. Fall] Comparison: None. Findings: No acute fracture or malalignment. Likely an old injury of the volar aspect of the middle p halanx base middle finger with ossification along the volar ligaments. Impression: No acute fracture or malalignment.
--- NOTE | 2018-05-28 15:25 | RAD ---
XR Forearm Rt 2 View STANDARD History: [Injury. Fall] Comparison: None. Findings: Forearm is intact. Soft tissues are normal. Impression: No acute fracture or malalignment
--- NOTE | 2018-05-28 15:25 | RAD ---
Radiograph right elbow 4 views: HISTORY: Traumatic right elbow pain due to fall FINDINGS: No evidence of fracture or dislocation. No distention of the joint capsule. IMPRESSION: No fracture
--- NOTE | 2018-05-28 15:26 | RAD ---
XR Knee Lt 4 View STANDARD History: [Fall. Pain.] Comparison: None. Findings: No significant joint effusion. No acute fracture or malalignment. Soft tissues are unremark able. Impression: No acute fracture or malalignment.
[2018-05-28] MEDS ORDERED: HYDROcodone/Acetaminophen 10/325 mg Tablet ONE (15:35)
[2018-05-28] MEDS ORDERED: Adacel (T-DAP) 0.5 ML SYRINGE ONE (15:35)
== END 2018-05-28 16:11 | disposition home or self-care (01) ==
LOC: ERS 14:21
DX: S80.02XA Contusion of left knee, initial encounter (principal); S50.01XA Contusion of right elbow, initial encounter; G47.30 Sleep apnea, unspecified; E11.9 Type 2 diabetes mellitus without complications; I10 Essential (primary) hypertension; J45.909 Unspecified asthma, uncomplicated; F41.9 Anxiety disorder, unspecified; F32.9 Major depressive disorder, single episode, unspecified; Z79.84 Long term (current) use of oral hypoglycemic drugs; Z79.51 Long term (current) use of inhaled steroids; Z79.899 Other long term (current) drug therapy; W01.0XXA Fall on same level from slipping, tripping and stumbling without subsequent striking against object, initial encounter
CPT/HCPCS: 90471; 90715

== ENCOUNTER 2018-07-27 06:49 | Outpatient (CLI) | payer OTHER ==
--- NOTE | 2018-07-27 07:49 | ULT ---
Gallbladder ultrasound: Multiple grayscale images of right upper quadrant obtained according to protocol. INDICATION: Pain FINDINGS: Liver: Hepatic steatosis. Gallbladder: Surgically absent Modi's Sign: Negative Common bile duct is normal. Ascites: None Incidental note of hyperechoic focus of right kidney, slightly greater than 1 cm. No hydronephrosis o f imaged right kidney. IMPRESSION: Surgical absence of gallbladder Incidental calcific focus of right kidney, without hydronephrosis visualized. Correlate clinically.
== END 2018-07-27 06:50 | disposition home or self-care (01) ==
LOC: BICULT 06:49
PROVIDERS: ATTEND Emergency Medicine
DX: R94.5 Abnormal results of liver function studies (principal); Z90.49 Acquired absence of other specified parts of digestive tract
CPT/HCPCS: 76705

== ENCOUNTER 2019-01-28 23:30 | Emergency (ER) | payer OTHER ==
[2019-01-28] MEDS ORDERED: Ondansetron ODT 4 MG TAB ONE (23:36)
[2019-01-29] MEDS ORDERED: diphenhydrAMINE 50 MG/ML VIAL ONE (00:12)
[2019-01-29] MEDS ORDERED: Metoclopramide HCl 10 MG/2 ML VIAL ONE (00:12)
[2019-01-29 00:15] LABS: #Basophils 0.1 thou/uL (0.0-0.2); #Eosinphils 0.1 thou/uL (0.0-0.7); #Lymphocytes 3.1 thou/uL (1.20-3.40); #Monocytes 0.4 thou/uL (0.11-0.59); #Neutrophils 6.3 thou/uL (1.40-6.50); %Basophils 0.5 % (0.0-1.0); %Eosinophils 1.2 % (0.0-10.0); %Lymphocytes 31.2 % (21.0-51.0); %Monocytes 4.2 % (0.0-10.0); %Neutrophils 62.9 % (42.0-75.0); Hemoglobin 11.9 g/dL (12.0-16.0); Mean Corpuscular HGB CONC 34.7 g/dL (32.0-36.0); Mean Corpuscular Hemoglobin 31.7 pg (27.0-31.0); Mean Corpuscular Volume 91.5 fL (78.0-98.0); Mean Platelet Volume 8.3 fL (7.4-10.4); Platelet Count 237 thou/uL (130-400); RBC Distribution Width 11.8 % (11.5-14.5); Red Blood Cell (RBC) Count 3.76 mill/uL (4.20-5.40)
[2019-01-29 00:35] LABS: Pregnancy Test - Urine (BHCG) Negative (Negative); Pregu Control Background? CLEAR/WHITE (CLR/WHITE); Pregu Control Bar Appear? YES (CONTROL BAR)
[2019-01-29 00:40] LABS: Bacteria/HPF None Seen HPF (None Seen); Bilirubin Negative (Negative); Blood, Urine 3+ (Negative); Clarity Turbid (Clear); Glucose, Urine (Dipstick) 30 mg/dL (Negative); Leukocyte 75 Leu/uL (Negative); Nitrite Negative (Negative); Protein, Urine (Dipstick) 200 mg/dL (Neg-Trace); RBC/HPF Greater than 50 HPF (0-3); Squamous Epithelial 0-3 HPF (0-3); Urobilinogen 3 mg/dL (Less than 2)
[2019-01-29 00:43] LABS: Specific Gravity 1.035 (1.002-1.036)
[2019-01-29 00:48] LABS: ALT (SGPT) 29 U/L (8-55); AST (SGOT) 32 U/L (5-34); Albumin 3.5 g/dL (3.5-5.0); Alkaline Phosphatase 103 U/L (40-110); Anion Gap 13 mmol/L (10-20); BUN (Urea Nitrogen) 18 mg/dL (7.0-18.7); Bilirubin, Total 0.2 mg/dL (0.2-1.2); Calc. Creatinine Clearance 0 mL/min (70-130); Carbon Dioxide 23 mmol/L (22-29); Chloride 105 mmol/L (98-107); Estimated GFR-MDRD 58; Globulin 4.3 g/dL (2.4-3.5); Glucose 158 mg/dL (70-105); Lipase 30 U/L (8-78); Potassium 4.4 mmol/L (3.5-5.1); Protein, Total 7.8 g/dL (6.0-8.3); Sodium 137 mmol/L (136-145)
[2019-01-29] MEDS ORDERED: Sucralfate 1 GM/10 ML UDCUP ONE ×2 (01:37→01:40)
== END 2019-01-29 01:48 | disposition home or self-care (01) ==
LOC: ERS 23:30
DX: E11.43 Type 2 diabetes mellitus with diabetic autonomic (poly)neuropathy (principal); K31.84 Gastroparesis; R11.2 Nausea with vomiting, unspecified; R10.13 Epigastric pain; G47.30 Sleep apnea, unspecified; I10 Essential (primary) hypertension; J45.909 Unspecified asthma, uncomplicated; F41.9 Anxiety disorder, unspecified; F32.9 Major depressive disorder, single episode, unspecified; Z79.4 Long term (current) use of insulin; Z79.899 Other long term (current) drug therapy; Z79.51 Long term (current) use of inhaled steroids
CPT/HCPCS: 80053; 81003; 81015; 81025; 83690; 85025; 93005; 96361; 96374; 96375; J1200; J2765; Q0162

== ENCOUNTER 2019-02-11 19:03 | Emergency (ER) | payer OTHER ==
[2019-02-11 19:30] LABS: #Eosinphils 0.1 thou/uL (0.0-0.7); #Lymphocytes 3.4 thou/uL (1.20-3.40); #Monocytes 0.4 thou/uL (0.11-0.59); #Neutrophils 6.7 thou/uL (1.40-6.50); %Basophils 0.1 % (0.0-1.0); %Eosinophils 0.6 % (0.0-10.0); %Lymphocytes 32.3 % (21.0-51.0); Hemoglobin 13.2 g/dL (12.0-16.0); Mean Corpuscular HGB CONC 34.6 g/dL (32.0-36.0); Mean Corpuscular Hemoglobin 31.3 pg (27.0-31.0); Mean Corpuscular Volume 90.5 fL (78.0-98.0); Platelet Count 276 thou/uL (130-400); RBC Distribution Width 11.8 % (11.5-14.5); Red Blood Cell (RBC) Count 4.23 mill/uL (4.20-5.40); White Blood Cell (WBC) Count 10.6 thou/uL (4.8-10.8)
[2019-02-11 19:48] LABS: ALT (SGPT) 33 U/L (8-55); AST (SGOT) 22 U/L (5-34); Albumin 3.9 g/dL (3.5-5.0); Alkaline Phosphatase 101 U/L (40-110); Anion Gap 14 mmol/L (10-20); BUN (Urea Nitrogen) 14 mg/dL (7.0-18.7); Bilirubin, Total 0.6 mg/dL (0.2-1.2); Calc. Creatinine Clearance 0 mL/min (70-130); Calcium 9.5 mg/dL (7.8-10.44); Carbon Dioxide 23 mmol/L (22-29); Chloride 104 mmol/L (98-107); Estimated GFR-MDRD 71; Globulin 3.9 g/dL (2.4-3.5); Glucose 226 mg/dL (70-105); Potassium 3.9 mmol/L (3.5-5.1); Protein, Total 7.8 g/dL (6.0-8.3); Sodium 137 mmol/L (136-145)
[2019-02-11 20:43] LABS: BHCG - Serum Negative (NEGATIVE); Pregs Control Background? CLEAR/WHITE (CLR/WHITE); Pregs Control Bar Appear? YES (CONTROL BAR)
[2019-02-11 21:10] LABS: Bacteria/HPF None Seen HPF (None Seen); Bilirubin Negative (Negative); Blood, Urine 3+ (Negative); Clarity Clear (Clear); Glucose, Urine (Dipstick) 200 mg/dL (Negative); Leukocyte Negative Leu/uL (Negative); Mucous/LPF 2+ LPF (<2+); Nitrite Negative (Negative); Protein, Urine (Dipstick) 50 mg/dL (Neg-Trace); RBC/HPF Greater than 50 HPF (0-3); Squamous Epithelial 0-3 HPF (0-3); Urobilinogen 6 mg/dL (Less than 2)
[2019-02-11] MEDS ORDERED: Morphine 4 MG/ML VIAL ONE (21:30)
[2019-02-11] MEDS ORDERED: Ondansetron PF 4 MG/2 ML Vial ONE (21:30)
--- NOTE | 2019-02-11 22:15 | CT ---
CT ABDOMEN AND PELVIS WITH IV CONTRAST 02/11/2019 CLINICAL INFORMATION: Nausea and vomiting. Diffuse abdominal pain. COMPARISON: 04/03/2018. Technique: Multiple contiguous axial CT images are obtained through the abdomen and pelvis with IV contrast. Cor onal reformatted images are provided. FINDINGS: Lower Chest: Stable minimal linear scarring right lung base. Left lung base is clear. Vessels: Abdominal aorta is normal in caliber. Abdomen: Portal vein:Patent Gallbladder: Surgically absent. Liver: Diminished attenuation similar to prior study which again is likely due to to fatty infiltrati on. Spleen: within normal limits. Pancreas: within normal limits. Adrenals: within normal limits. Kidneys: Nonobstructing right renal calculus measuring approximately 8 mm is again present. A subcent imeter too small to characterize hypodense lesion is again seen in the midportion left kidney. Bowel: Normal caliber. Appendix: The appendix is visualized and normal in caliber. Peritoneum: No ascites or free air; no fluid collection. Mesentery and Retroperitoneum: No enlarged mesenteric or retroperitoneal lymph nodes. Abdominal Wall: within normal limits. Pelvis: Reproductive Organs: Again noted is a 2.5 cm left adnexal cystic lesion. This cystic lesion measured 4.5 cm on the study on 12/23/2017. Pelvis within normal limits. Bladder: Decompressed but otherwise grossly normal in appearance. Bones: No suspicious lytic or sclerotic osseous lesions are identified. There are mild degenerative c hanges in the spine. IMPRESSION: 1. No acute findings are seen in the abdomen or pelvis. 2. Stable fatty infiltration liver. 3. Stable right nephrolithiasis. 4. Left adnexal cystic lesion stable in size compared to the study on 04/03/2018 but smaller in size c ompared to study in 2018. 5. Cholecystectomy changes.
== END 2019-02-11 22:44 | disposition home or self-care (01) ==
LOC: ERS 19:03
DX: E11.65 Type 2 diabetes mellitus with hyperglycemia (principal); R11.2 Nausea with vomiting, unspecified; R10.9 Unspecified abdominal pain; G47.30 Sleep apnea, unspecified; I10 Essential (primary) hypertension; J45.909 Unspecified asthma, uncomplicated; F41.9 Anxiety disorder, unspecified; F32.9 Major depressive disorder, single episode, unspecified; Z79.899 Other long term (current) drug therapy; Z79.4 Long term (current) use of insulin
CPT/HCPCS: 36415; 36416; 74177; 80053; 81003; 81015; 83690; 84703; 85025; 96361; 96374; 96375; J2270; J2405

== ENCOUNTER 2019-03-05 02:41 | Emergency (ER) | payer OTHER ==
[2019-03-05] MEDS ORDERED: Metoclopramide HCl 10 MG/2 ML VIAL ONE (02:57)
[2019-03-05 03:00] LABS: #Basophils 0.1 thou/uL (0.0-0.2); #Eosinphils 0.1 thou/uL (0.0-0.7); #Lymphocytes 2.4 thou/uL (1.20-3.40); #Monocytes 0.7 thou/uL (0.11-0.59); #Neutrophils 10.9 thou/uL (1.40-6.50); %Basophils 0.4 % (0.0-1.0); %Eosinophils 0.7 % (0.0-10.0); %Lymphocytes 17.1 % (21.0-51.0); %Monocytes 5.1 % (0.0-10.0); %Neutrophils 76.8 % (42.0-75.0); Hemoglobin 14.5 g/dL (12.0-16.0); Mean Corpuscular HGB CONC 33.9 g/dL (32.0-36.0); Mean Corpuscular Hemoglobin 30.7 pg (27.0-31.0); Mean Corpuscular Volume 90.6 fL (78.0-98.0); Mean Platelet Volume 8.3 fL (7.4-10.4); Platelet Count 267 thou/uL (130-400); RBC Distribution Width 11.9 % (11.5-14.5); Red Blood Cell (RBC) Count 4.73 mill/uL (4.20-5.40); White Blood Cell (WBC) Count 14.2 thou/uL (4.8-10.8)
[2019-03-05 03:21] LABS: ALT (SGPT) 47 U/L (8-55); AST (SGOT) 42 U/L (5-34); Albumin 4.3 g/dL (3.5-5.0); Alkaline Phosphatase 123 U/L (40-110); Anion Gap 12 mmol/L (10-20); BUN (Urea Nitrogen) 19 mg/dL (7.0-18.7); Bilirubin, Total 0.5 mg/dL (0.2-1.2); Calc. Creatinine Clearance 0 mL/min (70-130); Carbon Dioxide 28 mmol/L (22-29); Chloride 99 mmol/L (98-107); Estimated GFR-MDRD 61; Globulin 4.7 g/dL (2.4-3.5); Glucose 198 mg/dL (70-105); Lipase 50 U/L (8-78); Sodium 135 mmol/L (136-145)
[2019-03-05 03:36] LABS: Bacteria/HPF None Seen HPF (None Seen); Bilirubin Negative (Negative); Blood, Urine 1+ (Negative); Clarity Clear (Clear); Glucose, Urine (Dipstick) 70 mg/dL (Negative); Leukocyte Negative Leu/uL (Negative); Nitrite Negative (Negative); Protein, Urine (Dipstick) 30 mg/dL (Neg-Trace); RBC/HPF 0-3 HPF (0-3); Squamous Epithelial 0-3 HPF (0-3); WBC/HPF 0-3 HPF (0-3)
[2019-03-05 03:38] LABS: Pregnancy Test - Urine (BHCG) Negative (Negative); Specific Gravity 1.023 (1.002-1.036)
[2019-03-05 03:39] LABS: Pregu Control Background? CLEAR/WHITE (CLR/WHITE); Pregu Control Bar Appear? YES (CONTROL BAR)
== END 2019-03-05 04:54 | disposition home or self-care (01) ==
LOC: ERS 02:41
DX: R11.2 Nausea with vomiting, unspecified (principal); R10.13 Epigastric pain; F41.9 Anxiety disorder, unspecified; E11.43 Type 2 diabetes mellitus with diabetic autonomic (poly)neuropathy; K31.84 Gastroparesis; F32.9 Major depressive disorder, single episode, unspecified; G47.30 Sleep apnea, unspecified; J45.909 Unspecified asthma, uncomplicated; Z87.442 Personal history of urinary calculi; Z79.899 Other long term (current) drug therapy; Z79.4 Long term (current) use of insulin
CPT/HCPCS: 80053; 81003; 81015; 81025; 83605; 83690; 85025; 93005; 96361; 96374; J2765

== ENCOUNTER 2019-03-05 14:52 | Observation (INO) | payer OTHER ==
[~2019-03-05 14:52] MED LIST: Iopamidol-370 76% 500 ML 1 ML ONE
[2019-03-05] MEDS ORDERED: Ondansetron ODT 4 MG TAB ONE (14:54)
[2019-03-05] MEDS ORDERED: Ketorolac Tromethamine 30 MG/ML VIAL ONE (15:58)
[2019-03-05] MEDS ORDERED: Ondansetron PF 4 MG/2 ML Vial ONE (15:58)
[2019-03-05 16:24] LABS: Mean Corpuscular HGB CONC 33.7 g/dL (32.0-36.0); Mean Corpuscular Hemoglobin 30.7 pg (27.0-31.0); Mean Corpuscular Volume 91.1 fL (78.0-98.0); Mean Platelet Volume 8.4 fL (7.4-10.4); Platelet Count 218 thou/uL (130-400); RBC Distribution Width 12.1 % (11.5-14.5); Red Blood Cell (RBC) Count 4.56 mill/uL (4.20-5.40); White Blood Cell (WBC) Count 14.4 thou/uL (4.8-10.8)
[2019-03-05 16:36] LABS: Band 9 % (5-11); Lymphocytes 8 % (21-51); MDiff Complete? YES; Monocytes 3 % (0-10); Neutrophil 80 % (42-75); Platelet Morphology Comment Appears Adequate; RBC Morphology Normal
[2019-03-05 16:45] LABS: BHCG - Serum Negative (NEGATIVE); Pregs Control Background? CLEAR/WHITE (CLR/WHITE); Pregs Control Bar Appear? YES (CONTROL BAR)
[2019-03-05 16:46] LABS: ALT (SGPT) 44 U/L (8-55); AST (SGOT) 33 U/L (5-34); Albumin 3.9 g/dL (3.5-5.0); Alkaline Phosphatase 103 U/L (40-110); Anion Gap 14 mmol/L (10-20); BUN (Urea Nitrogen) 12 mg/dL (7.0-18.7); Bilirubin, Total 0.8 mg/dL (0.2-1.2); CK (CPK) 18 U/L (29-168); Calc. Creatinine Clearance 0 mL/min (70-130); Calcium 9.3 mg/dL (7.8-10.44); Carbon Dioxide 24 mmol/L (22-29); Chloride 101 mmol/L (98-107); Estimated GFR-MDRD 71; Globulin 4.1 g/dL (2.4-3.5); Glucose 179 mg/dL (70-105); Lipase 13 U/L (8-78); Potassium 4.4 mmol/L (3.5-5.1); Sodium 135 mmol/L (136-145)
--- NOTE | 2019-03-05 17:36 | CT ---
CT abdomen and pelvis with IV contrast HISTORY: Abdominal pain. COMPARISON: 02/11/2019. FINDINGS: Lung bases are clear. Gallbladder surgically absent. The oval 0.8 cm calculus in the nondil ated right renal pelvis is again demonstrated. No evidence of bowel obstruction or inflammation. Degenerative changes lumbar spine. Tiny left renal cyst. Left ovarian follicle. No pathologic mass. IMPRESSION: Nonobstructing 8 mm right renal calculus, stable.
[2019-03-05] MEDS ORDERED: Morphine 4 MG/ML VIAL ONE (17:50)
[2019-03-05] MEDS ORDERED: Acetaminophen 500 MG TAB ONE (17:51)
[2019-03-05] MEDS ORDERED: Cefepime 2 GM VIAL ONE (18:21)
--- NOTE | 2019-03-05 18:32 | PDOC.FPRHP ---
- History of Present Illness Chief Complaint: N/V, abdominal & left leg pain History of Present Illness: 38 yo F w/ PMHx of longstanding diabetes and gastroparesis complains of redness to her left leg which started yesterday. Came to ER yesterday for N/V/abd pain, was given reglan in ED and sent home. Redness noted on leg yesterday. Vomited this AM twice of yellow bile. Has not been able to eat and not had much of an appetite. Reports redness on her left leg got more red and larger. Denies trauma to her leg. Has had cellulitis in both lower extremities before. Last episode was about 3 years ago. + nausea, fever, shakes, + left leg pain. Denies ulcers or lesions to her lower extremities. ED Course: Given 2L NS, vancomycin, cefepime, morphine, tylenol, toradol, reglan, zofran. - Allergies/Adverse Reactions Allergies Allergy/AdvReac Type Severity Reaction Status Date / Time No Known Drug Allergies Allergy Verified 03/05/19 21:16 - Home Medications Medication Instructions Recorded Confirmed Type Lisinopril/Hydrochlorothiazide 1 tab PO DAILY 05/29/16 03/05/19 History [Lisinopril-Hctz 20-25 mg Tab] metFORMIN HCl [Glucophage] 500 mg PO BID- 05/29/16 03/05/19 History Fluticasone/Salmeterol [Advair 1 inh IH BID 04/03/18 03/05/19 History Diskus 250/50] Ondansetron HCl [Zofran] 4 mg PO Q6HR PRN 04/03/18 03/05/19 History Atorvastatin Calcium [Lipitor] 10 mg PO HS tab 04/06/18 03/05/19 Rx Albuterol Sulfate [Proair HFA] 8.5 gm INH PRN PRN 03/05/19 03/05/19 History HumaLOG 53 unit SC BID- 03/05/19 03/05/19 History Insulin Glargine [Lantus Vial] 51 units SC HS 03/05/19 03/05/19 History Lisinopril/Hydrochlorothiazide 1 tab PO PRN PRN 03/05/19 03/05/19 History [Lisinopril-Hctz 20-25 mg Tab] Montelukast Sodium 10 mg PO DAILY 03/05/19 03/05/19 History Simvastatin [Zocor] 20 mg PO DAILY 03/05/19 03/05/19 History Venlafaxine HCl [Effexor XR] 150 mg PO DAILY 03/05/19 03/05/19 History hydrOXYzine [Atarax] 10 mg PO TID PRN 03/05/19 03/05/19 History Comments: Metformin ER 500mg BID Lantus 51 units at night Humalog 53 units twice daily Singulair Hydroxyzine for anxiety Venlafaxine ER for depression Reglan Zofran Lisinopril-HCTZ 25 in AM. - History PMHx: DM recently placed on insulin 2 years ago, gastroparesis for past 4-5 years, asthma, sleep apnea and uses CPAP, anxiety, depression, HTN PSHx: cholecystecotmy, tonisillectomy/adenoidectomy, stents in kidneys for kidney stones FHx: - Mom: DM, asthma, HTN - Dad: SD at age 50 - Siblings: DM, HTN Social: - Denies smoking, and illicit drugs. - last drank alcohol one month ago. - Lives w/ mom. Not , no children. - Review of Systems General: reports: fever/chills (fever in ED of 100.9 F), weight/appetite/sleep changes Eyes: denies: vision changes ENT: reports: nasal congestion, rhinorrhea (had a cold last week.) Respiratory: denies: cough, shortness of breath Cardiovascular: reports: palpitation. denies: chest pain Gastrointestinal: reports: nausea, vomiting, constipation, abdominal pain. denies: diarrhea, GI bleeding Genitourinary: denies: dysuria Skin: denies: rashes Musculoskeletal: denies: pain Neurological: reports: numbness (in hands and feets at times bilaterally) Psychological: reports: anxiety, depression - Vital signs BP: 166/70, Pulse: 119, Resp: 18, Temp: 100.9 (Oral), Pain: 9, O2 sat: 98 on ( Room Air), Time: 03/05/2019 17:42. - Physical Exam Constitutional: NAD, awake, alert and oriented HEENT: normocephalic and atraumatic, PERRLA, conjunctiva clear, TM's clear and intact, normal nasal mucosa, MMM Neck: no thyromegaly Heart: RRR, normal S1/S2, no murmurs/rubs/gallops Lungs: CTAB, no respiratory distress, no wheezing Abdomen: soft, bowel sounds present (hypoactive), other (diffusely moderately TTP) Musculoskeletal: normal structure, normal tone, ROM grossly normal Neurological: no focal deficit -Skin: erythema to dorsum of L foot above 2-5th toes, erythema and warmth from L ankle to below knee, marked TTP, no edema bilaterally, no abscess or fluctuance appreciated. Heme/Lymphatic: no unusual bruising or bleeding Psychiatric: normal mood and affect, intact recent and remote memory FMR H&P: Results - Labs Result Diagrams: 03/05/19 16:07 03/05/19 16:07 Lab results: WBC 14.4 thou/uL (4.8-10.8) H 03/05/19 16:07 Hgb 14.0 g/dL (12.0-16.0) 03/05/19 16:07 Hct 41.5 % (36.0-47.0) 03/05/19 16:07 MCV 91.1 fL (78.0-98.0) 03/05/19 16:07 Plt Count 218 thou/uL (130-400) 03/05/19 16:07 Band Neuts % (Manual) 9 % (5-11) 03/05/19 16:07 Sodium 135 mmol/L (136-145) L 03/05/19 16:07 Potassium 4.4 mmol/L (3.5-5.1) 03/05/19 16:07 Chloride 101 mmol/L (98-107) 03/05/19 16:07 Carbon Dioxide 24 mmol/L (22-29) 03/05/19 16:07 BUN 12 mg/dL (7.0-18.7) 03/05/19 16:07 Creatinine 0.89 mg/dL (0.6-1.1) 03/05/19 16:07 Glucose 179 mg/dL (70-105) H 03/05/19 16:07 Lactic Acid 1.5 mmol/L (0.5-2.2) 03/05/19 18:04 Calcium 9.3 mg/dL (7.8-10.44) 03/05/19 16:07 Total Bilirubin 0.8 mg/dL (0.2-1.2) 03/05/19 16:07 AST 33 U/L (5-34) 03/05/19 16:07 ALT 44 U/L (8-55) 03/05/19 16:07 Alkaline Phosphatase 103 U/L (40-110) 03/05/19 16:07 Creatine Kinase 18 U/L (29-168) L 03/05/19 16:07 Serum Total Protein 8.0 g/dL (6.0-8.3) 03/05/19 16:07 Albumin 3.9 g/dL (3.5-5.0) 03/05/19 16:07 Lipase 13 U/L (8-78) 03/05/19 16:07 - Radiology Interpretation CT scan - abdomen Status: image reviewed by me, report reviewed by me (nonobstructing stone in R kidney) FMR H&P: A/P - Problem List (1) Cellulitis Current Visit: No Status: Acute Code(s): L03.90 - CELLULITIS, UNSPECIFIED (2) Diabetes Current Visit: No Status: Acute Code(s): E11.9 - TYPE 2 DIABETES MELLITUS WITHOUT COMPLICATIONS (3) Hyperlipidemia Current Visit: No Status: Acute Code(s): E78.5 - HYPERLIPIDEMIA, UNSPECIFIED (4) Hypertension Current Visit: No Status: Acute Code(s): I10 - ESSENTIAL (PRIMARY) HYPERTENSION Qualifiers: (5) Nausea and vomiting Current Visit: No Status: Acute Code(s): R11.2 - NAUSEA WITH VOMITING, UNSPECIFIED (6) Sepsis due to cellulitis Current Visit: No Status: Acute Code(s): L03.90 - CELLULITIS, UNSPECIFIED; A41.9 - SEPSIS, UNSPECIFIED ORGANISM (7) Gastroparesis due to DM Current Visit: No Status: Chronic Code(s): E11.43 - TYPE 2 DIABETES W DIABETIC AUTONOMIC (POLY)NEUROPATHY; K31.84 - GASTROPARESIS (8) ELDER (obstructive sleep apnea) Current Visit: No Status: Chronic Code(s): G47.33 - OBSTRUCTIVE SLEEP APNEA (ADULT) (PEDIATRIC) - Plan 38 yo F w/ PMHx of longstanding T2DM and gastroparesis admitted for: Sepsis 2/2 LLE Cellulitis Tachycardia - has history of cellulitis in lower extremities b/l. Last hospitalized for this 3 years ago - met sepsis criteria w/ WBC, HR, and fever - no apparent abscess, lower extremity wounds, drainage. - s/p Vanc, Cefepime in ED - has not tried outpatient abx therapy for this: will start Bactrim 800/160 PO BID. - Continue fluid resuscitation w/ LR at 175 mL/hr. Additional 3rd bolus given. Gastroparesis 2/2 diabetes - pt takes reglan and zofran at home - Reglad q6hr scheduled - CLD for now. ADAT. R renal stone, nonobstructing, incidental finding - unlikely to be causing acute abdominal pain, unlikely to be source of sepsis - will monitor for renal colic - UA w/ findings of blood and 4-6 RBC per hpf - pain mgmt Chronic conditions: T2DM: - hx of diabetes starting at age 14, but only started insulin several years ago. - continue lantus and humalog Asthma HTN Anxiety Depression - continue home meds ELDER - continue nightly CPAP Code: FULL Fluids: LR at 175 mL/hr VTE PPx: lovenox 40 daily GI PPx: none Yohan Salmon MD PGY1 Disposition/LOS: admit to medical inpatient. LOS > 48H. FMR H&P: Upper Level - Plan Date/Time: 03/05/19 183 PCP: Emerson Merino- NADIYA HPI: This is a 38 yo F with siginificant PMH including DMII, gastroparesis, HTN, and asthma who comes in with 1 day of abdominal pain and left lower leg pain. At time of exam patient states she is having almost no abdominal pain, earlier in the day it was a dull ache that was generalized, nothing specific made it better /worse including eating. She states she had 2 episodes of vomiting in the morning but has been able to tolerate PO this afternoon. The patient also states that she has pain in her left lower leg and foot that has been getting worse for 1 day. States she had a subjective fever this afternoon at home, pain is worse with walking. She denies SOB or chest pain but does have tenderness to palpation. REVIEW OF SYSTEMS: Gen: +fever, no chills/sweats Neuro: denies headache Eyes: no visual changes ENT: no hearing changes, no sore throat, no congestion Resp: denies cough, SOB Card: denies murmurs, rubs, gallups GI: no N/V/D, no abdominal pain Heme: no easy bruising/bleeding Skin: see hpi PHYSICAL EXAMINATION: General: NAD, alert and oriented x3 HEENT: PERRLA, EOMI, normal sclera, oropharynx without erythema or exudate Neck: Supple. Full ROM. Heart/Cardiovascular System: RRR, Cap refill < 3 seconds, no rub, no murmur Lungs/Respiratory System: CTA-B, no resp distress Abdomen/Gastro-Intestinal System: Normal bowel sounds, tenderness to deep palpation throughout, no guarding/rebound, soft Extremities: Left lower extremity warm to touch, patches of redness at anterior mid avila and L foot on dorsal side, tender to palpation, erythema marked with pen, no edema Neuro: No gross deficits appreciated. CN 2-12 grossly intact Psychiatry: Awake, Alert and cooperative with exam Musculoskeletal: Full ROM A/P: # Cellulitis, SIRS - WBC 14.4, tachycardic, LA 1.5, febrile - s/p 3L bolus - Received vanc/cefepime in the ED, no sign of ulcerations or skin breakdown on exam - No outpt tx, will start with Bactrim, if she cannot tolerate PO may switch to Vanc - Bcx pending - Doppler US ordered to r/o DVT # abdominal pain, Gastroparesis - resolved after morphine in ED - patient requesting opiates, gave patient 1 time dose norco on the floor - discussed risk of exacerbating gastroparesis, will continue with bentyl - CT abdomen, no acute process, non-obstructing renal calculus # DMII - Home meds, SSI # HTN, HLD, Asthma, Depression, ELDER - Home meds, cpap Fluids: 175 ml/hr LR Code status: full PPx: lovenox Dispo: 1-2 days
[2019-03-05 18:59] LABS: Bacteria/HPF None Seen HPF (None Seen); Bilirubin Negative (Negative); Blood, Urine Trace (Negative); Clarity Clear (Clear); Glucose, Urine (Dipstick) 70 mg/dL (Negative); Leukocyte Negative Leu/uL (Negative); Nitrite Negative (Negative); Protein, Urine (Dipstick) 20 mg/dL (Neg-Trace); Squamous Epithelial 0-3 HPF (0-3); WBC/HPF 0-3 HPF (0-3)
[2019-03-05] MEDS ORDERED: Vancomycin HCl 1 GM in Premix Bag 1 BAG IVPB ONE (19:15)
[2019-03-05] MEDS ORDERED: Acetaminophen 325 MG TAB PO PRN (19:32)
[2019-03-05] MEDS ORDERED: Ondansetron PF 4 MG/2 ML Vial IVP PRN (19:32)
[2019-03-05] MEDS ORDERED: Ondansetron ODT 4 MG TAB PO PRN (19:32)
[2019-03-05] MEDS ORDERED: Dextrose 50% Abboject 50 ML SYRINGE SLOW IVP PRN (19:43)
[2019-03-05] MEDS ORDERED: Dextrose 5% in Water 1,000 ML IV PRN (19:43)
[2019-03-05] MEDS ORDERED: Enoxaparin Sodium 40 MG/0.4 ML SYRINGE SC SCH (19:45)
[2019-03-05] MEDS ORDERED: Metoclopramide HCl 10 MG/2 ML VIAL IVP PRN (19:49)
[2019-03-05] MEDS ORDERED: HYDROcodone/Acetaminophen 5/325 mg Tablet PO PRN (19:52)
[2019-03-05 21:27] VITALS: BMI 46.5
[2019-03-05] MEDS ORDERED: Lactated Ringer's 1,000 ML IV SCH (21:30)
[2019-03-05] MEDS ORDERED: PROVENTIL INHALER 6.7 G (200 INHALATIONS) INH PRN (21:54)
[2019-03-05] MEDS ORDERED: hydrOXYzine 10 MG TAB PO PRN (21:54)
[2019-03-05] MEDS: Sulfameth/Trimethoprim DS 800-160mg TAB PO SCH (22:02)
[2019-03-05] MEDS: Acetaminophen 325 MG TAB PO SCH (23:36)
[2019-03-05] MEDS ORDERED: Piperacillin/Tazobactam 3.375 GM in Sodium Chloride 0.9% 100 ML IVPB SCH (23:59)
--- NOTE | 2019-03-06 | ULT ---
Venous duplex sonogram left lower extremity HISTORY: Left leg pain and edema. FINDINGS: The left common femoral vein and greater saphenous junction were evaluated along with the f emoral, deep femoral, popliteal, and posterior tibial veins. There is good color and spectral Doppler flow and compression. Reactive appearing lymph nodes at the left groin. IMPRESSION: No sonographic evidence of DVT left lower extremity.
[2019-03-06] MEDS: Lactated Ringer's 1,000 ML IV SCH ×3 (00:01→11:49)
[2019-03-06] MEDS: Acetaminophen 325 MG TAB PO SCH ×2 (04:20→13:14)
[2019-03-06] MEDS ORDERED: PROVENTIL INHALER 6.7 G (200 INHALATIONS) INH PRN (04:57)
[2019-03-06] MEDS ORDERED: Dicyclomine 20 MG TAB PO PRN (04:59)
[2019-03-06 05:19] LABS: #Lymphocytes 1.8 thou/uL (1.20-3.40); #Monocytes 0.8 thou/uL (0.11-0.59); #Neutrophils 9.8 thou/uL (1.40-6.50); %Basophils 0.1 % (0.0-1.0); %Eosinophils 0.2 % (0.0-10.0); %Lymphocytes 14.4 % (21.0-51.0); %Monocytes 6.3 % (0.0-10.0); Mean Corpuscular HGB CONC 33.5 g/dL (32.0-36.0); Mean Corpuscular Hemoglobin 30.8 pg (27.0-31.0); Mean Platelet Volume 8.3 fL (7.4-10.4); Platelet Count 169 thou/uL (130-400); RBC Distribution Width 12.1 % (11.5-14.5); Red Blood Cell (RBC) Count 3.57 mill/uL (4.20-5.40); White Blood Cell (WBC) Count 12.3 thou/uL (4.8-10.8)
[2019-03-06 05:38] LABS: Anion Gap 10 mmol/L (10-20); BUN (Urea Nitrogen) 13 mg/dL (7.0-18.7); Calc. Creatinine Clearance 180 mL/min (70-130); Calcium 7.7 mg/dL (7.8-10.44); Carbon Dioxide 21 mmol/L (22-29); Chloride 107 mmol/L (98-107); Estimated GFR-MDRD 81; Glucose 179 mg/dL (70-105); Potassium 3.8 mmol/L (3.5-5.1); Sodium 134 mmol/L (136-145)
--- NOTE | 2019-03-06 06:01 | PDOC.FM ---
- Subjective Subjective: Pt doing well this morning, states erythema of leg as improved already. Still with moderate pain of left leg as well as chronic gastroparesis pain. Endorses chills. No SOB, CP, n/v, constipation/diarrhea. Decreased PO intake over past few days 2/2 acute illness. No other concerns at this time. - Objective MAR Reviewed: Yes Vital Signs & Weight: Vital Signs (12 hours) Temp Pulse Resp BP BP Pulse Ox 03/06/19 04:25 98.7 F 106 H 21 H 149/92 H 98 03/05/19 23:35 98.5 F 105 H 20 127/71 96 03/05/19 21:00 99.2 F 110 H 20 103/64 103/64 97 Weight Weight 119.295 kg Result Diagrams: 03/06/19 05:01 03/06/19 05:01 Phys Exam - Physical Examination Constitutional: NAD (mildly-ill appearing, obese) HEENT: PERRLA diaphoretic Neck: supple Respiratory: no wheezing, no rales, no rhonchi, clear to auscultation bilateral Cardiovascular: RRR, no significant murmur, no rub Gastrointestinal: soft, non-tender, no distention, positive bowel sounds Musculoskeletal: pulses present (2+ doralis pedis BL) Neurological: non-focal, moves all 4 limbs Psychiatric: normal affect, A&O x 3 Deviation from normal: LLL erythema, decreased from margins at admission. Warmth. Mild swelling -: 5/5 strength through, no pain with dorsiflexion or plantar flexion. Dx/Plan (1) Sepsis due to cellulitis Code(s): L03.90 - CELLULITIS, UNSPECIFIED; A41.9 - SEPSIS, UNSPECIFIED ORGANISM Status: Acute (2) Hyperglycemia due to type 2 diabetes mellitus Code(s): E11.65 - TYPE 2 DIABETES MELLITUS WITH HYPERGLYCEMIA Status: Chronic (3) Hyperlipidemia Code(s): E78.5 - HYPERLIPIDEMIA, UNSPECIFIED Status: Chronic (4) Hypertension Code(s): I10 - ESSENTIAL (PRIMARY) HYPERTENSION Status: Chronic Qualifiers: (5) Anxiety and depression Code(s): F41.9 - ANXIETY DISORDER, UNSPECIFIED; F32.9 - MAJOR DEPRESSIVE DISORDER, SINGLE EPISODE, UNSPECIFIED Status: Chronic (6) Gastroparesis due to DM Code(s): E11.43 - TYPE 2 DIABETES W DIABETIC AUTONOMIC (POLY)NEUROPATHY; K31.84 - GASTROPARESIS Status: Chronic (7) Morbid obesity with BMI of 40.0-44.9, adult Code(s): E66.01 - MORBID (SEVERE) OBESITY DUE TO EXCESS CALORIES; Z68.41 - BODY MASS INDEX (BMI) 40.0-44.9, ADULT Status: Chronic - Plan Plan: 38 yo F w/ PMHx of longstanding T2DM and gastroparesis admitted for sepsis 2/2 LLL cellulitis #Sepsis 2/2 LLE Cellulitis - h/o cellulitis of BL LE, hospitalized 3 years ago - No apparent abscess, lower ext wound, or drainage - S/p vanc and cefepime in ED, transitioned to Bactrim DS BID PO - DVT US neg - WBC 12 with left shift (PMN 79%). Lactic acid 1.5 -> 1.0 - wound appears improved from admission, no acute s/s of compartment syndrome, will cont to monitor closely - BCx pending #Moderate dehydration - UA specific gravity > 1.060, ketones - s/p 3L bolus, now on LR @ 175cc/hr, will cont to encourage PO intake and d/c when appropriate #Gastroparesis 2/2 diabetes, improved - pt takes reglan, bentyl, and zofran at home, will cont and monitor #R renal stone, nonobstructing, incidental finding - asymptomatic, no urinary sxs, will monitor - UA w/ findings of blood and 4-6 RBC per hpf #T2DM - hx of diabetes starting at age 14, started insulin several years ago. - continue lantus and humalog, ACHS accuchecks, hyperglycemic protocol #Asthma - cont home meds #HTN - cont home meds #Anxiety and Depression - cont home meds ELDER - continue nightly CPAP Code: FULL Diet: Regular Fluids: LR at 175 mL/hr VTE PPx: lovenox 40 daily PCP: NADIYA Dispo: Admitted for sepsis 2/2 LLL cellulitis. Clinically improving but still tachy. Will cont IVF, abx. Monitor closely. Anticipate discharge 1-2 days pending clinical course. Addendum - Attending - Attending Attestation Date/Time: 03/06/19 0173 I personally evaluated the patient and discussed the management with Dr. Lisset [place] I agree with the History, Examination, Assessment and Plan documented above with any addition or exceptions noted below. Patient cellulitis improved encourage increased activity continued observation home soon if continued improvement.
[2019-03-06] MEDS ORDERED: metFORMIN 500 MG TAB PO SCH (08:00)
[2019-03-06] MEDS ORDERED: HumaLOG 300 UNITS/3 ML VIAL SC SCH (08:00)
[2019-03-06] MEDS ORDERED: Montelukast Sodium 10 mg Tablet PO SCH (09:00)
[2019-03-06] MEDS ORDERED: Venlafaxine HCl XR 150 MG CAP PO SCH (09:00)
[2019-03-06] MEDS ORDERED: Dicyclomine 20 MG TAB PO SCH (09:00)
[2019-03-06] MEDS ORDERED: Lisinopril/Hydrochlorothiazide 20/25 mg Tablet PO SCH (09:00)
[2019-03-06] MEDS ORDERED: Vancomycin HCl 1.5 GM in Sodium Chloride 0.9% 250 ML 300 ML IVPB SCH (09:00)
[2019-03-06] MEDS ORDERED: Enoxaparin Sodium 40 MG/0.4 ML SYRINGE SC SCH (09:00)
[2019-03-06] MEDS ORDERED: Atorvastatin Calcium 10 MG TAB PO SCH (09:00)
[2019-03-06] MEDS: Sulfameth/Trimethoprim DS 800-160mg TAB PO SCH (09:57)
[2019-03-06] MEDS ORDERED: Polyethylene Glycol 3350 17 GM Packet PO PRN (14:14)
[2019-03-06 15:53] VITALS: BP 138/75; TEMP 98.4
[2019-03-06] MEDS ORDERED: Metoclopramide HCl 10 MG TAB PO SCH (17:00)
[2019-03-06] MEDS ORDERED: Insulin Glargine 51 UNITS in Pre-Filled Syringe 1 EACH SC SCH (21:00)
--- NOTE | 2019-03-06 21:41 | DIS ---
DATE OF ADMISSION: 03/05/2019 DATE OF DISCHARGE: 03/06/2019 RESIDENT: Jose Dallas MD ADMITTING ATTENDING: Walker Rush MD DISCHARGE ATTENDING: David Gonzalez MD PROCEDURES: 1. CT of abdomen and pelvis on 03/05/2019, demonstrating a nonobstructing 8 mm right renal calculus, stable. 2. Vascular ultrasound on 03/05/2019, demonstrating no sonographic evidence of DVT of the left lower extremity. PRIMARY DIAGNOSES: 1. Sepsis secondary to left lower extremity cellulitis. 2. Moderate dehydration, resolved. SECONDARY DIAGNOSES: 1. Gastroparesis secondary to type 2 diabetes. 2. Right renal stone, nonobstructing. 3. Type 2 diabetes. 4. Asthma. 5. Hypertension. 6. Anxiety and depression. 7. Obstructive sleep apnea. DISCHARGE MEDICATIONS: 1. Bactrim Double Strength one tablet p.o. b.i.d. x6 days. 2. Bentyl 20 mg p.o. q.6 hours p.r.n. 3. Lantus 51 units subcu at bedtime. 4. Singulair 10 mg p.o. daily. 5. Humalog 53 units subcu b.i.d. 6. ProAir inhaler p.r.n. 7. Lisinopril hydrochlorothiazide 20/25 one tablet daily. 8. Zocor 20 mg p.o. daily. 9. Hydroxyzine 10 mg p.o. t.i.d. p.r.n. 10. Atorvastatin 10 mg p.o. at bedtime. 11. Zofran 4 mg p.o. q.6 hours p.r.n. 12. Advair 1 inhalation b.i.d. 13. Metformin 500 mg p.o. b.i.d. with meals. DISCONTINUED MEDICATIONS: None. HISTORY OF PRESENT ILLNESS AND HOSPITAL COURSE: The patient is a 38-year-old female with past medical history of longstanding diabetes, gastroparesis, who presented to the emergency room with redness of her left lower extremity, which started the day prior to admission. She stated that she came to the ER on the day prior for nausea, vomiting, abdominal pain, thus it was determined to be a flare of her gastroparesis and was given Reglan and sent home with return precautions. She has been noticed that the redness of her left lower extremity began to increase. She had chills, decreased p.o. intake. She denies any recent trauma to that left lower extremity, but notes that the erythema was spreading and pain was increased that she presented back to the ED for further evaluation and management. In the ED, she met sepsis criteria with a pulse of 115 and a temperature of 100.9. She was given 2 L normal saline bolus, vancomycin, cefepime, pain medications, and medications for gastroparesis and she was admitted to the floor for further evaluation and management. Once on the floor, the patient was found to have a white count of 14, and a urinalysis showing moderate dehydration. The patient was given third liter normal saline bolus and started on maintenance IV fluids and encouraged for p.o. intake. The wound was demarcated. The patient was transitioned to oral Bactrim due to not failing any outpatient therapy having not tried any prior to admission. The patient stated that she has had lower extremity cellulitis in the past and this has been treated successfully with Bactrim. She denies any recent trauma and no open sores or wounds were discovered on physical exam. Her medications were continued for gastroparesis with improvement of her symptoms. She was monitored overnight. Overnight, the patient did well. No acute events. Vitals remained stable. She became afebrile and vital signs stabilized. On the morning of discharge, the patient was examined and had good 2+ pulses, 5/5 strength bilaterally. A venous Doppler ultrasound was obtained showing no DVT. Erythema, swelling, and warmth had decreased from the previously demarcated margins. The patient stated that she was able to ambulate around the room with pain well controlled. Her diet was advanced as she was able to tolerate a full diet for lunch with no nausea or vomiting. Blood cultures were obtained and no growth to date at the time of discharge. The patient's IV fluids were discontinued as she was tolerating p.o. well. At the time of discharge, the patient was doing well, nearing her baseline. Clinically improved from admission and is stable for discharge. Discharge plan discussed with the patient including the need to complete the total of 7-day Bactrim course. Prescriptions were sent to the pharmacy. Medications were also sent for her gastroparesis and she was notified to follow up with primary care physician for further evaluation and management of this. Return precautions were given. The patient voiced agreement, understanding of the discharge plan and followup. DISPOSITION: Stable. DISCHARGE INSTRUCTIONS: 1. Location: Home. 2. Diet: Diabetic. 3. Activity: As tolerated. 4. Followup. The patient is to follow up with her primary care physician within one week of discharge or sooner if needed. Job ID: [id number] MTDD
== END 2019-03-06 17:01 | disposition home or self-care (01) ==
LOC: ERS 14:52 → T4-A 21:14 → INTOOBSV 21:14
PROVIDERS: ADMIT Family Medicine; ATTEND Family Medicine
DX: A41.9 Sepsis, unspecified organism (principal); L03.116 Cellulitis of left lower limb; E86.0 Dehydration; E11.43 Type 2 diabetes mellitus with diabetic autonomic (poly)neuropathy; K31.84 Gastroparesis; N20.0 Calculus of kidney; J45.909 Unspecified asthma, uncomplicated; I10 Essential (primary) hypertension; F41.9 Anxiety disorder, unspecified; F32.9 Major depressive disorder, single episode, unspecified; E78.5 Hyperlipidemia, unspecified; G47.33 Obstructive sleep apnea (adult) (pediatric); E66.01 Morbid (severe) obesity due to excess calories; Z68.42 Body mass index [BMI] 45.0-49.9, adult; Z79.4 Long term (current) use of insulin; Z79.899 Other long term (current) drug therapy; Z99.89 Dependence on other enabling machines and devices
CPT/HCPCS: 36415; 36416; 51701; 74177; 80048; 80053; 81003; 81015; 81025; 82550; 83605; 83690; 84703; 85025; 87040; 87086; 87804; 93005; 96361; 96365; 96367; 96372; 96375; 96376; A4353; G0378; J0692; J1650; J1815; J1885; J2270; J2405; J2765; J3370; Q0162; Q9967

== ENCOUNTER 2019-05-12 17:41 | Emergency (ER) | payer OTHER ==
[2019-05-12] MEDS ORDERED: Morphine 4 MG/ML VIAL ONE (17:58)
[2019-05-12 18:07] LABS: #Basophils 0.1 thou/uL (0.0-0.2); #Eosinphils 0.1 thou/uL (0.0-0.7); #Lymphocytes 4.6 thou/uL (1.20-3.40); #Monocytes 0.6 thou/uL (0.11-0.59); #Neutrophils 7.3 thou/uL (1.40-6.50); %Basophils 1.1 % (0.0-1.0); %Eosinophils 1.2 % (0.0-10.0); %Lymphocytes 36.1 % (21.0-51.0); %Monocytes 4.3 % (0.0-10.0); %Neutrophils 57.3 % (42.0-75.0); Hemoglobin 13.7 g/dL (12.0-16.0); Mean Corpuscular HGB CONC 34.1 g/dL (32.0-36.0); Mean Corpuscular Hemoglobin 31.5 pg (27.0-31.0); Mean Corpuscular Volume 92.4 fL (78.0-98.0); Mean Platelet Volume 8.5 fL (7.4-10.4); Platelet Count 338 thou/uL (130-400); RBC Distribution Width 12.1 % (11.5-14.5); Red Blood Cell (RBC) Count 4.33 mill/uL (4.20-5.40); White Blood Cell (WBC) Count 12.7 thou/uL (4.8-10.8)
[2019-05-12 18:08] LABS: Actual Bicarbonate (HCO3a) 25.8 mEq/L (22-28); Analyzer IN Cardio ER; Base Excess (BEa) 1.8 mEq/L (-2.0 to +3.0); CO2 Tension 38.2 mmHg (35.0-45.0); Calcium, Ionized 1.15 mmol/L (1.12-1.30); Carboxyhemoglobin (COHb) 4.3 gm% (0.0-3.0); O2 Tension (PaO2) 72.9 mmHg (80.0-100.0); Potassium - ABG Lab 3.85 mmol/L (3.70-5.30); pH, Arterial 7.45 (7.35-7.45)
[2019-05-12 18:23] LABS: Bilirubin Negative (Negative); Blood, Urine Negative (Negative); Clarity Clear (Clear); Glucose, Urine (Dipstick) Greater than 1000 mg/dL (Negative); Leukocyte Negative Leu/uL (Negative); Nitrite Negative (Negative); Protein, Urine (Dipstick) Negative (Neg-Trace)
[2019-05-12 18:35] LABS: ALT (SGPT) 45 U/L (8-55); AST (SGOT) 42 U/L (5-34); Alkaline Phosphatase 116 U/L (40-110); Anion Gap 14 mmol/L (10-20); BUN (Urea Nitrogen) 13 mg/dL (7.0-18.7); Bilirubin, Total 0.4 mg/dL (0.2-1.2); CK (CPK) 16 U/L (29-168); Calc. Creatinine Clearance 0 mL/min (70-130); Calcium 9.4 mg/dL (7.8-10.44); Carbon Dioxide 26 mmol/L (22-29); Chloride 98 mmol/L (98-107); Estimated GFR-MDRD 68; Globulin 4.2 g/dL (2.4-3.5); Glucose 211 mg/dL (70-105); Lipase 31 U/L (8-78); Protein, Total 8.2 g/dL (6.0-8.3); Sodium 134 mmol/L (136-145)
[2019-05-12 18:55] LABS: BHCG - Serum Negative (NEGATIVE); Pregs Control Background? CLEAR/WHITE (CLR/WHITE); Pregs Control Bar Appear? YES (CONTROL BAR)
[2019-05-12] MEDS ORDERED: Ketorolac Tromethamine 30 MG/ML VIAL ONE (19:32)
--- NOTE | 2019-05-12 20:33 | CT ---
ABDOMEN CT WITHOUT CONTRAST PELVIC CT WITHOUT CONTRAST: Comparison: 06-15-16, 02-23-2019 History: Left flank pain FINDINGS: ABDOMEN CT: The lung bases are clear. Normal heart size. No significant paracardial fluid. Limited evaluation of the solid organs due to th e absence of IV contrast. Grossly, no solid organ abnormality. Gallbladder is surgically absent. No gastrohepatic, retrocrural or periportal lymphadenopathy. Stable nonspecific periaortic lymph node measuring 1.9 cm in maximum dimension. No mesenteric mass, lymphadenopathy, free air or free fluid. Nonspecific induration of the ventral subcutaneous fat. Tiny umbilical hernia containing mesenteric f at. Limited evaluation of the alimentary canal by the absence of oral contrast. No evidence of a small addie wel obstruction. Unremarkable ileocecal junction. Scattered fecal material in a decompressed colon. N ormal caliber appendix. Large calculus in the right intrarenal collecting system, measuring 1.0 x 0.5 cm. No associated obstr uctive uropathy. There are no calcifications within the left intrarenal or extrarenal collecting syst em. No evidence of obstructive uropathy. PELVIC CT: Uterus and right adnexa are unremarkable. Hypodensity in the left adnexa with mild adjacent fat stran ding is presumed to represent a left ovarian follicle measuring 2.5 x 2.1 cm. Attenuation coefficient is 6 Hounsfield units. No significant free fluid in the pelvis. No mass or lymphadenopathy. Presacral fat is preserved. Sacral ala are preserved. No lytic or blastic lesion in the osseous struc tures. Moderate central canal stenosis at L5-S1. IMPRESSION: 1. Nonobstructing calculus in the right intrarenal collecting system. 2. Bilaterally no obstructive uropathy. 3. Normal caliber appendix. 4. Left ovarian cyst which was noted in 2017 as well as the examination of 03-05-2019. Follow up ultra sound in eight weeks to ensure resolution. POS: PPP
[2019-05-13 02:25] LABS: Puncture Site LRA
== END 2019-05-12 21:39 | disposition home or self-care (01) ==
LOC: ERS 17:41
DX: R10.9 Unspecified abdominal pain (principal); E11.9 Type 2 diabetes mellitus without complications; I10 Essential (primary) hypertension; J45.909 Unspecified asthma, uncomplicated; F41.9 Anxiety disorder, unspecified; F32.9 Major depressive disorder, single episode, unspecified; J18.9 Pneumonia, unspecified organism; Z79.84 Long term (current) use of oral hypoglycemic drugs; Z79.4 Long term (current) use of insulin; Z79.899 Other long term (current) drug therapy
CPT/HCPCS: 36415; 74176; 80053; 81003; 82550; 82805; 83690; 84703; 85025; 96372; J1885; J2270

== ENCOUNTER 2019-06-01 14:06 | Emergency (ER) | payer OTHER ==
[2019-06-01 15:16] LABS: #Eosinphils 0.1 thou/uL (0.0-0.7); #Lymphocytes 2.1 thou/uL (1.20-3.40); #Monocytes 0.3 thou/uL (0.11-0.59); #Neutrophils 5.4 thou/uL (1.40-6.50); %Basophils 0.6 % (0.0-1.0); %Eosinophils 0.9 % (0.0-10.0); %Lymphocytes 26.8 % (21.0-51.0); %Monocytes 3.8 % (0.0-10.0); %Neutrophils 68.1 % (42.0-75.0); Hemoglobin 12.8 g/dL (12.0-16.0); Mean Corpuscular HGB CONC 35.9 g/dL (32.0-36.0); Mean Corpuscular Hemoglobin 33.2 pg (27.0-31.0); Mean Corpuscular Volume 92.6 fL (78.0-98.0); Mean Platelet Volume 8.7 fL (7.4-10.4); Platelet Count 247 thou/uL (130-400); RBC Distribution Width 12.1 % (11.5-14.5); Red Blood Cell (RBC) Count 3.85 mill/uL (4.20-5.40); White Blood Cell (WBC) Count 7.9 thou/uL (4.8-10.8)
[2019-06-01] MEDS ORDERED: Lorazepam 1 MG TAB ONE (15:18)
[2019-06-01 15:27] LABS: Acetaminophen Less than 6.0 mcg/mL (10.0-30.0); Alcohol Less than 10 mg/dL (Less than 10); Salicylate Less than 8.0 mg/dL (15.0-30.0)
[2019-06-01 15:28] LABS: ALT (SGPT) 42 U/L (8-55); AST (SGOT) 45 U/L (5-34); Albumin 3.6 g/dL (3.5-5.0); Alkaline Phosphatase 96 U/L (40-110); Anion Gap 9 mmol/L (10-20); BUN (Urea Nitrogen) 10 mg/dL (7.0-18.7); Bilirubin, Total 0.5 mg/dL (0.2-1.2); Calc. Creatinine Clearance 0 mL/min (70-130); Calcium 9.2 mg/dL (7.8-10.44); Carbon Dioxide 26 mmol/L (22-29); Chloride 105 mmol/L (98-107); Estimated GFR-MDRD 77; Globulin 3.9 g/dL (2.4-3.5); Glucose 235 mg/dL (70-105); Potassium 3.8 mmol/L (3.5-5.1); Protein, Total 7.5 g/dL (6.0-8.3); Sodium 136 mmol/L (136-145)
[2019-06-01 16:00] LABS: Pregnancy Test - Urine (BHCG) Negative (Negative); Pregu Control Background? CLEAR/WHITE (CLR/WHITE); Pregu Control Bar Appear? YES (CONTROL BAR); Specific Gravity 1.018 (1.002-1.036)
[2019-06-01 16:08] LABS: Medtox Reader # READER 1; Opiate Screen Detected (NotDetected); THC/Cannabinoid Screen Detected (NotDetected)
[2019-06-01 16:09] LABS: Amphetamine Not Detected (NotDetected); Barbiturates Screen Not Detected (NotDetected); Benzodiazepine Screen Detected (NotDetected); Cocaine Metabolite Screen Not Detected (NotDetected); Medtox Control Line Valid? VALID (VALID); Methadone Not Detected (NotDetected); Methamphetamine Not Detected (NotDetected); Oxycodone Screen Not Detected (NotDetected); Phencyclidine (PCP) Not Detected (NotDetected); Tricyclic Screen Not Detected (NotDetected)
[2019-06-01 17:11] LABS: Bacteria/HPF None Seen HPF (None Seen); Bilirubin Negative (Negative); Blood, Urine 2+ (Negative); Clarity Turbid (Clear); Glucose, Urine (Dipstick) 50 mg/dL (Negative); Leukocyte 75 Leu/uL (Negative); Nitrite Negative (Negative); Protein, Urine (Dipstick) 30 mg/dL (Neg-Trace); RBC/HPF Greater than 50 HPF (0-3); Squamous Epithelial 0-3 HPF (0-3); Urobilinogen 3 mg/dL (Less than 2); WBC/HPF 0-3 HPF (0-3)
== END 2019-06-01 19:32 | disposition home or self-care (01) ==
LOC: ERS 14:06
DX: F43.20 Adjustment disorder, unspecified (principal); F32.9 Major depressive disorder, single episode, unspecified; E11.43 Type 2 diabetes mellitus with diabetic autonomic (poly)neuropathy; K31.84 Gastroparesis; I10 Essential (primary) hypertension; J45.909 Unspecified asthma, uncomplicated; F41.9 Anxiety disorder, unspecified; G47.30 Sleep apnea, unspecified; Z79.4 Long term (current) use of insulin; Z79.899 Other long term (current) drug therapy
CPT/HCPCS: 36415; 36416; 80053; 80306; 80307; 81003; 81015; 81025; 84443; 85025; 87086; 99284

== ENCOUNTER 2020-04-27 14:30 | Emergency (ER) | payer OTHER ==
[2020-04-27] MEDS ORDERED: Ondansetron PF 4 MG/2 ML Vial ONE (15:00)
[2020-04-27 15:33] LABS: BHCG - Serum Negative (NEGATIVE); Pregs Control Background? CLEAR/WHITE (CLR/WHITE); Pregs Control Bar Appear? YES (CONTROL BAR)
[2020-04-27 15:43] LABS: ALT (SGPT) 36 U/L (8-55); AST (SGOT) 34 U/L (5-34); Albumin 3.7 g/dL (3.5-5.0); Alkaline Phosphatase 101 U/L (40-110); Anion Gap 16 mmol/L (10-20); BUN (Urea Nitrogen) 16 mg/dL (7.0-18.7); Bilirubin, Total 0.5 mg/dL (0.2-1.2); Calc. Creatinine Clearance 0 mL/min (70-130); Carbon Dioxide 19 mmol/L (22-29); Chloride 104 mmol/L (98-107); Globulin 4.2 g/dL (2.4-3.5); Glucose 275 mg/dL (70-105); Lipase 15 U/L (8-78); Protein, Total 7.9 g/dL (6.0-8.3); Sodium 135 mmol/L (136-145)
[2020-04-27 16:19] LABS: Bacteria/HPF None Seen HPF (None Seen); Bilirubin Negative (Negative); Blood, Urine 3+ (Negative); Clarity Turbid (Clear); Glucose, Urine (Dipstick) 100 mg/dL (Negative); Ketone, Urine Trace mg/dL (Negative); Leukocyte 25 Leu/uL (Negative); Nitrite Negative (Negative); Protein, Urine (Dipstick) 30 mg/dL (Neg-Trace); RBC/HPF Greater than 50 HPF (0-3); Specific Gravity, Urine 1.024 (1.002-1.036); Squamous Epithelial 0-3 HPF (0-3); Urobilinogen 3 mg/dL (Less than 2)
[2020-04-27 17:34] LABS: #Eosinphils 0.1 thou/uL (0.0-0.7); #Lymphocytes 3.1 thou/uL (1.20-3.40); #Monocytes 0.4 thou/uL (0.11-0.59); #Neutrophils 5.6 thou/uL (1.40-6.50); %Basophils 0.2 % (0.0-1.0); %Eosinophils 0.9 % (0.0-10.0); %Lymphocytes 33.8 % (21.0-51.0); %Monocytes 4.2 % (0.0-10.0); %Neutrophils 60.9 % (42.0-75.0); Hemoglobin 13.4 g/dL (12.0-16.0); Mean Corpuscular HGB CONC 33.7 g/dL (32.0-36.0); Mean Corpuscular Hemoglobin 31.1 pg (27.0-31.0); Mean Corpuscular Volume 92.2 fL (78.0-98.0); Mean Platelet Volume 8.9 fL (7.4-10.4); Platelet Count 239 thou/uL (130-400); RBC Distribution Width 12.1 % (11.5-14.5); White Blood Cell (WBC) Count 9.2 thou/uL (4.8-10.8)
[2020-04-27 23:36] LABS: SARS-CoV-2 PCR by NAA DETECTED (NotDetected)
== END 2020-04-27 18:10 | disposition home or self-care (01) ==
LOC: ERS 14:30
DX: U07.1 COVID-19 (principal); R10.10 Upper abdominal pain, unspecified; E11.9 Type 2 diabetes mellitus without complications; I10 Essential (primary) hypertension; Z79.4 Long term (current) use of insulin; Z79.899 Other long term (current) drug therapy
CPT/HCPCS: 80053; 81003; 81015; 83690; 84703; 85025; 87635; 96374; J2405; U0003; U0005

== ENCOUNTER 2020-06-10 16:22 | Emergency (ER) | payer OTHER ==
[2020-06-10] MEDS ORDERED: diphenhydrAMINE 50 MG/ML VIAL ONE (16:52)
[2020-06-10] MEDS ORDERED: Metoclopramide HCl 10 MG/2 ML VIAL ONE (16:52)
[2020-06-10] MEDS ORDERED: Ondansetron PF 4 MG/2 ML Vial ONE (17:07)
[2020-06-10 17:09] LABS: #Basophils 0.1 thou/uL (0.0-0.2); #Eosinphils 0.1 thou/uL (0.0-0.7); #Lymphocytes 3.8 thou/uL (1.20-3.40); #Monocytes 0.5 thou/uL (0.11-0.59); #Neutrophils 8.4 thou/uL (1.40-6.50); %Basophils 0.4 % (0.0-1.0); %Eosinophils 0.5 % (0.0-10.0); %Lymphocytes 29.5 % (21.0-51.0); %Monocytes 3.8 % (0.0-10.0); %Neutrophils 65.8 % (42.0-75.0); Hemoglobin 13.8 g/dL (12.0-16.0); Mean Corpuscular HGB CONC 34.8 g/dL (32.0-36.0); Mean Corpuscular Hemoglobin 31.7 pg (27.0-31.0); Mean Corpuscular Volume 91.1 fL (78.0-98.0); Mean Platelet Volume 8.4 fL (7.4-10.4); Platelet Count 336 thou/uL (130-400); RBC Distribution Width 11.8 % (11.5-14.5); Red Blood Cell (RBC) Count 4.34 mill/uL (4.20-5.40); White Blood Cell (WBC) Count 12.8 thou/uL (4.8-10.8)
[2020-06-10 17:22] LABS: BHCG - Serum Negative (NEGATIVE); Pregs Control Background? CLEAR/WHITE (CLR/WHITE); Pregs Control Bar Appear? YES (CONTROL BAR)
[2020-06-10 17:41] LABS: ALT (SGPT) 28 U/L (8-55); AST (SGOT) 27 U/L (5-34); Albumin 3.9 g/dL (3.5-5.0); Alkaline Phosphatase 106 U/L (40-110); Anion Gap 16 mmol/L (10-20); BUN (Urea Nitrogen) 12 mg/dL (7.0-18.7); Bilirubin, Total 0.6 mg/dL (0.2-1.2); Calc. Creatinine Clearance 0 mL/min (70-130); Calcium 9.6 mg/dL (7.8-10.44); Carbon Dioxide 19 mmol/L (22-29); Chloride 105 mmol/L (98-107); Globulin 4.2 g/dL (2.4-3.5); Glucose 194 mg/dL (70-105); Lipase 12 U/L (8-78); Potassium 3.9 mmol/L (3.5-5.1); Protein, Total 8.1 g/dL (6.0-8.3); Sodium 136 mmol/L (136-145)
== END 2020-06-10 18:45 | disposition home or self-care (01) ==
LOC: ERS 16:22
DX: E11.43 Type 2 diabetes mellitus with diabetic autonomic (poly)neuropathy (principal); K31.84 Gastroparesis; E11.65 Type 2 diabetes mellitus with hyperglycemia
CPT/HCPCS: 36415; 80053; 83690; 84703; 85025; 96365; 96375; J1200; J2405; J2765

== ENCOUNTER 2020-10-18 08:20 | Emergency (ER) | payer OTHER ==
[2020-10-18] MEDS ORDERED: Iopamidol-370 76% 500 ML 1 ML ONE (08:50)
[2020-10-18] MEDS ORDERED: Iopamidol 370 76% 50 ML VIAL FS ONE (08:50)
[2020-10-18] MEDS ORDERED: Acetaminophen 500 MG TAB ONE (09:28)
[2020-10-18] MEDS ORDERED: Ondansetron ODT 8 MG TAB ONE (09:28)
[2020-10-18 09:34] LABS: #Basophils 0.1 thou/uL (0.0-0.2); #Eosinphils 0.2 thou/uL (0.0-0.7); #Lymphocytes 3.1 thou/uL (1.20-3.40); #Monocytes 0.8 thou/uL (0.11-0.59); #Neutrophils 7.8 thou/uL (1.40-6.50); %Basophils 0.7 % (0.0-1.0); %Eosinophils 1.5 % (0.0-10.0); %Monocytes 6.6 % (0.0-10.0); %Neutrophils 65.2 % (42.0-75.0); Hemoglobin 12.4 g/dL (12.0-16.0); Mean Corpuscular HGB CONC 33.4 g/dL (32.0-36.0); Mean Corpuscular Hemoglobin 29.5 pg (27.0-31.0); Mean Corpuscular Volume 88.5 fL (78.0-98.0); Mean Platelet Volume 7.5 fL (7.4-10.4); Platelet Count 347 thou/uL (130-400); RBC Distribution Width 12.5 % (11.5-14.5)
[2020-10-18 09:52] LABS: BHCG - Serum Negative (NEGATIVE); Pregs Control Background? CLEAR/WHITE (CLR/WHITE); Pregs Control Bar Appear? YES (CONTROL BAR)
[2020-10-18 09:56] LABS: ALT (SGPT) 23 U/L (8-55); AST (SGOT) 18 U/L (5-34); Albumin 3.8 g/dL (3.5-5.0); Alkaline Phosphatase 98 U/L (40-110); Anion Gap 12 mmol/L (10-20); BUN (Urea Nitrogen) 18 mg/dL (7.0-18.7); Bilirubin, Total 0.8 mg/dL (0.2-1.2); Calc. Creatinine Clearance 0 mL/min (70-130); Calcium 9.5 mg/dL (7.8-10.44); Carbon Dioxide 26 mmol/L (22-29); Chloride 102 mmol/L (98-107); Globulin 4.1 g/dL (2.4-3.5); Glucose 199 mg/dL (70-105); Lipase 10 U/L (8-78); Potassium 4.4 mmol/L (3.5-5.1); Protein, Total 7.9 g/dL (6.0-8.3); Sodium 136 mmol/L (136-145)
[2020-10-18 10:49] LABS: Bacteria/HPF None Seen HPF (None Seen); Bilirubin Negative (Negative); Blood, Urine Negative (Negative); Clarity Clear (Clear); Glucose, Urine (Dipstick) 70 mg/dL (Negative); Ketone, Urine 60 mg/dL (Negative); Leukocyte Negative Leu/uL (Negative); Nitrite Negative (Negative); Protein, Urine (Dipstick) 30 mg/dL (Neg-Trace); RBC/HPF 0-3 HPF (0-3); Specific Gravity, Urine 1.027 (1.002-1.036); Squamous Epithelial 0-3 HPF (0-3); WBC/HPF 0-3 HPF (0-3); pH, Urine 6.5 (5.0-9.0)
[2020-10-18] MEDS ORDERED: Ketorolac Tromethamine 30 MG/ML VIAL ONE (11:33)
== END 2020-10-18 12:11 | disposition home or self-care (01) ==
LOC: ERS 08:20
DX: S30.811A Abrasion of abdominal wall, initial encounter (principal); R81 Glycosuria; V47.9XXA Unspecified car occupant injured in collision with fixed or stationary object in traffic accident, initial encounter; Z79.4 Long term (current) use of insulin; Z79.899 Other long term (current) drug therapy; G47.30 Sleep apnea, unspecified; E11.9 Type 2 diabetes mellitus without complications; I10 Essential (primary) hypertension
CPT/HCPCS: 36415; 71046; 74177; 80053; 81003; 81015; 83690; 84703; 85025; 93005; 96374; J1885; Q0162; Q9967

== ENCOUNTER 2021-02-14 20:01 | Inpatient (IN) | payer OTHER ==
[2021-02-14] MEDS ORDERED: Ondansetron PF 4 MG/2 ML Vial ONE (20:24)
[2021-02-14 20:37] LABS: Mean Corpuscular HGB CONC 34.9 g/dL (32.0-36.0); Mean Corpuscular Hemoglobin 31.4 pg (27.0-31.0); Mean Corpuscular Volume 89.8 fL (78.0-98.0); Mean Platelet Volume 8.3 fL (7.4-10.4); Platelet Count 384 thou/uL (130-400); RBC Distribution Width 13.4 % (11.5-14.5); Red Blood Cell (RBC) Count 4.47 mill/uL (4.20-5.40); White Blood Cell (WBC) Count 32.5 thou/uL (4.8-10.8)
[2021-02-14 20:56] LABS: Band 1 % (5-11); Eosinophils 1 % (0-10); Lymphocytes 10 % (21-51); MDiff Complete? YES; Monocytes 5 % (0-10); Neutrophil 83 % (42-75); Platelet Morphology Comment Appears Adequate; RBC Morphology Normal
[2021-02-14 21:02] LABS: ALT (SGPT) 34 U/L (8-55); AST (SGOT) 35 U/L (5-34); Albumin 4.2 g/dL (3.5-5.0); Alkaline Phosphatase 123 U/L (40-110); Anion Gap 15 mmol/L (10-20); BUN (Urea Nitrogen) 38 mg/dL (7.0-18.7); Bilirubin, Total 0.5 mg/dL (0.2-1.2); Calc. Creatinine Clearance 0 mL/min (70-130); Carbon Dioxide 24 mmol/L (22-29); Chloride 98 mmol/L (98-107); Globulin 4.1 g/dL (2.4-3.5); Glucose 176 mg/dL (70-105); Lipase 24 U/L (8-78); Potassium 3.4 mmol/L (3.5-5.1); Protein, Total 8.3 g/dL (6.0-8.3); Sodium 134 mmol/L (136-145)
[2021-02-14] MEDS ORDERED: Promethazine HCl 25 MG/ML VIAL ONE (21:05)
[2021-02-14] MEDS ORDERED: Sodium Chloride 0.9% 100 ML ONE (22:03)
[2021-02-14] MEDS ORDERED: Piperacillin/Tazobactam 3.375 GM VIAL ONE (22:03)
[2021-02-14] MEDS ORDERED: Calcium Carbonate 500 MG ChewTAB PO PRN (22:29)
[2021-02-14] MEDS ORDERED: Dextrose 50% Abboject 50 ML SYRINGE SLOW IVP PRN (22:29)
[2021-02-14] MEDS ORDERED: Dextrose 5% in Water 1,000 ML IV PRN (22:29)
[2021-02-14] MEDS ORDERED: Acetaminophen 650 MG Suppository PR PRN (22:29)
[2021-02-14] MEDS ORDERED: HumaLOG 300 UNITS/3 ML VIAL SC PRN ×2 (22:36)
[2021-02-14] MEDS ORDERED: Vancomycin 1 GM/200 ML BAG ONE (22:37)
[2021-02-14] MEDS ORDERED: Lactated Ringer's 1,000 ML IV SCH (23:00)
[2021-02-15 01:02] VITALS: BMI 37.0
[2021-02-15] MEDS: Lactated Ringer's 1,000 ML IV SCH ×3 (01:15→14:30)
[2021-02-15] MEDS: Piperacillin/Tazobactam 3.375 GM in Sodium Chloride 0.9% 100 ML IVPB SCH ×2 (01:15→09:55)
[2021-02-15 01:34] LABS: Bilirubin Negative (Negative); Blood, Urine Negative (Negative); Clarity Clear (Clear); Glucose, Urine (Dipstick) Normal (Negative); Ketone, Urine Negative (Negative); Leukocyte Negative Leu/uL (Negative); Nitrite Negative (Negative); Protein, Urine (Dipstick) Negative (Neg-Trace); RBC/HPF 0-3 HPF (0-3); Specific Gravity, Urine 1.036 (1.002-1.036); Squamous Epithelial 0-3 HPF (0-3); Urobilinogen Normal mg/dL (Less than 2); WBC/HPF 0-3 HPF (0-3); pH, Urine 5.5 (5.0-9.0)
[2021-02-15 01:39] LABS: SARS-CoV-2 NAA Rapid Test Not Detected (NotDetected)
[2021-02-15 01:44] LABS: Bacteria/HPF Rare-Few HPF (None Seen)
[2021-02-15 01:45] LABS: Urine Culture Reflex No No
[2021-02-15] MEDS ORDERED: Ondansetron ODT 4 MG TAB PO PRN (04:29)
[2021-02-15] MEDS ORDERED: Dicyclomine 20 MG TAB PO PRN (04:29)
[2021-02-15] MEDS ORDERED: Ondansetron PF 4 MG/2 ML Vial IVP PRN (04:29)
[2021-02-15] MEDS ORDERED: Morphine 4 MG/ML VIAL SLOW IVP SCH (04:45)
[2021-02-15] MEDS ORDERED: Piperacillin/Tazobactam 3.375 GM in Sodium Chloride 0.9% 100 ML IVPB SCH (05:00)
[2021-02-15 06:15] LABS: #Lymphocytes 2.5 thou/uL (1.20-3.40); #Monocytes 0.7 thou/uL (0.11-0.59); #Neutrophils 11.9 thou/uL (1.40-6.50); %Eosinophils 0.2 % (0.0-10.0); %Lymphocytes 16.4 % (21.0-51.0); %Monocytes 4.8 % (0.0-10.0); %Neutrophils 78.6 % (42.0-75.0); Hemoglobin 11.9 g/dL (12.0-16.0); Mean Corpuscular HGB CONC 33.6 g/dL (32.0-36.0); Mean Corpuscular Hemoglobin 30.3 pg (27.0-31.0); Mean Corpuscular Volume 90.4 fL (78.0-98.0); Mean Platelet Volume 8.3 fL (7.4-10.4); Platelet Count 294 thou/uL (130-400); RBC Distribution Width 13.2 % (11.5-14.5); Red Blood Cell (RBC) Count 3.92 mill/uL (4.20-5.40); White Blood Cell (WBC) Count 15.1 thou/uL (4.8-10.8)
[2021-02-15 06:35] LABS: Anion Gap 10 mmol/L (10-20); BUN (Urea Nitrogen) 30 mg/dL (7.0-18.7); Calc. Creatinine Clearance 79 mL/min (70-130); Calcium 8.5 mg/dL (7.8-10.44); Carbon Dioxide 25 mmol/L (22-29); Chloride 104 mmol/L (98-107); Glucose 140 mg/dL (70-105); Sodium 136 mmol/L (136-145)
[2021-02-15 06:39] LABS: Potassium 2.8 mmol/L (3.5-5.1)
[2021-02-15] MEDS ORDERED: Insulin Glargine 40 UNITS in Pre-Filled Syringe 1 EACH SC SCH (09:00)
[2021-02-15] MEDS ORDERED: Potassium Chloride 20 MEQ in Premix Bag 2 BAG IVPB SCH (09:15)
[2021-02-15] MEDS: HumaLOG 300 UNITS/3 ML VIAL SC SCH ×2 (09:53→17:23)
[2021-02-15] MEDS: Metoclopramide HCl 10 MG TAB PO SCH ×2 (09:53→17:22)
[2021-02-15] MEDS: Heparin 5,000 UNITS/ML VIAL SC SCH ×3 (09:53→21:21)
[2021-02-15] MEDS: Venlafaxine HCl XR 150 MG CAP PO SCH (09:54)
[2021-02-15] MEDS: Montelukast Sodium 10 mg Tablet PO SCH (09:54)
[2021-02-15] MEDS: Lantus 1000 UNITS/10 ML VIAL SC SCH ×2 (09:59→21:21)
[2021-02-15] MEDS: Potassium Chloride 20 MEQ in Premix Bag 1 BAG IVPB SCH ×2 (10:56→14:31)
[2021-02-15] MEDS ORDERED: Potassium Chloride 20 MEQ TAB PO SCH (12:45)
[2021-02-15] MEDS: cefTRIAXone\\ROCEPHIN 1 GM in Sodium Chloride 0.9% 100 ML IVPB SCH (13:04)
[2021-02-15] MEDS: metroNIDAZOLE 500 MG in Premix Bag 1 BAG IVPB SCH ×2 (15:25→22:02)
[2021-02-15] MEDS: Promethazine HCl 12.5 MG in Sodium Chloride 0.9% 50 ML IVPB PRN (16:15)
[2021-02-15] MEDS ORDERED: Ondansetron PF 4 MG/2 ML Vial IVP SCH (21:00)
[2021-02-15] MEDS: Atorvastatin Calcium 10 MG TAB PO SCH (21:21)
[2021-02-15] MEDS: Acetaminophen 500 MG TAB PO PRN (21:21)
[2021-02-16] MEDS: Lactated Ringer's 1,000 ML IV SCH ×5 (01:23→22:33)
[2021-02-16] MEDS: metroNIDAZOLE 500 MG in Premix Bag 1 BAG IVPB SCH ×3 (05:11→22:10)
[2021-02-16] MEDS: Promethazine HCl 12.5 MG in Sodium Chloride 0.9% 50 ML IVPB PRN ×3 (06:12→20:46)
[2021-02-16 06:52] LABS: #Basophils 0.1 thou/uL (0.0-0.2); #Eosinphils 0.1 thou/uL (0.0-0.7); #Lymphocytes 3.6 thou/uL (1.20-3.40); #Monocytes 0.6 thou/uL (0.11-0.59); #Neutrophils 7.6 thou/uL (1.40-6.50); %Basophils 0.5 % (0.0-1.0); %Eosinophils 0.8 % (0.0-10.0); %Lymphocytes 30.1 % (21.0-51.0); %Monocytes 5.2 % (0.0-10.0); %Neutrophils 63.5 % (42.0-75.0); Hemoglobin 10.7 g/dL (12.0-16.0); Mean Corpuscular HGB CONC 33.5 g/dL (32.0-36.0); Mean Corpuscular Hemoglobin 30.4 pg (27.0-31.0); Mean Corpuscular Volume 90.6 fL (78.0-98.0); Mean Platelet Volume 8.4 fL (7.4-10.4); Platelet Count 248 thou/uL (130-400); RBC Distribution Width 13.1 % (11.5-14.5); Red Blood Cell (RBC) Count 3.51 mill/uL (4.20-5.40)
[2021-02-16 07:09] LABS: Anion Gap 8 mmol/L (10-20); BUN (Urea Nitrogen) 18 mg/dL (7.0-18.7); Calc. Creatinine Clearance 126 mL/min (70-130); Calcium 8.6 mg/dL (7.8-10.44); Carbon Dioxide 28 mmol/L (22-29); Chloride 104 mmol/L (98-107); Glucose 85 mg/dL (70-105); Sodium 137 mmol/L (136-145)
[2021-02-16 07:15] LABS: Potassium 2.8 mmol/L (3.5-5.1)
[2021-02-16] MEDS: Venlafaxine HCl XR 150 MG CAP PO SCH (08:53)
[2021-02-16] MEDS: Metoclopramide HCl 10 MG TAB PO SCH ×2 (08:53→16:54)
[2021-02-16] MEDS: Montelukast Sodium 10 mg Tablet PO SCH (08:53)
[2021-02-16] MEDS: HumaLOG 300 UNITS/3 ML VIAL SC SCH ×2 (08:54→16:58)
[2021-02-16] MEDS: Lantus 1000 UNITS/10 ML VIAL SC SCH ×2 (08:54→21:34)
[2021-02-16] MEDS: Heparin 5,000 UNITS/ML VIAL SC SCH ×3 (08:54→22:09)
[2021-02-16] MEDS ORDERED: Potassium Chloride 20 MEQ/100 ML PREMIX BAG IVPB SCH (09:00)
[2021-02-16] MEDS: cefTRIAXone\\ROCEPHIN 1 GM in Sodium Chloride 0.9% 100 ML IVPB SCH (11:13)
[2021-02-16 13:12] LABS: Magnesium 1.7 mg/dL (1.6-2.6)
[2021-02-16] MEDS: Potassium Chloride 20 MEQ/100 ML PREMIX BAG IVPB SCH ×2 (13:14→17:43)
[2021-02-16] MEDS ORDERED: Lantus 1000 UNITS/10 ML VIAL SC SCH (21:45)
[2021-02-16] MEDS: Atorvastatin Calcium 10 MG TAB PO SCH (22:09)
[2021-02-17] MEDS ORDERED: Ondansetron PF 4 MG/2 ML Vial IVP SCH (01:00)
[2021-02-17] MEDS: metroNIDAZOLE 500 MG in Premix Bag 1 BAG IVPB SCH ×3 (05:57→22:10)
[2021-02-17] MEDS: Acetaminophen 500 MG TAB PO PRN (06:00)
[2021-02-17 07:23] LABS: #Eosinphils 0.1 thou/uL (0.0-0.7); #Monocytes 0.6 thou/uL (0.11-0.59); #Neutrophils 8.7 thou/uL (1.40-6.50); %Basophils 0.2 % (0.0-1.0); %Eosinophils 0.6 % (0.0-10.0); %Monocytes 4.3 % (0.0-10.0); %Neutrophils 64.9 % (42.0-75.0); Hemoglobin 10.6 g/dL (12.0-16.0); Mean Corpuscular HGB CONC 33.4 g/dL (32.0-36.0); Mean Corpuscular Hemoglobin 30.3 pg (27.0-31.0); Mean Corpuscular Volume 90.6 fL (78.0-98.0); Platelet Count 248 thou/uL (130-400); RBC Distribution Width 13.3 % (11.5-14.5); Red Blood Cell (RBC) Count 3.51 mill/uL (4.20-5.40); White Blood Cell (WBC) Count 13.4 thou/uL (4.8-10.8)
[2021-02-17 07:42] LABS: Anion Gap 9 mmol/L (10-20); BUN (Urea Nitrogen) 13 mg/dL (7.0-18.7); Calc. Creatinine Clearance 139 mL/min (70-130); Calcium 8.5 mg/dL (7.8-10.44); Carbon Dioxide 26 mmol/L (22-29); Chloride 107 mmol/L (98-107); Glucose 70 mg/dL (70-105); Potassium 3.1 mmol/L (3.5-5.1); Sodium 139 mmol/L (136-145)
[2021-02-17] MEDS: HumaLOG 300 UNITS/3 ML VIAL SC SCH ×2 (08:14→17:21)
[2021-02-17] MEDS: Promethazine HCl 12.5 MG in Sodium Chloride 0.9% 50 ML IVPB PRN ×2 (08:25→14:20)
[2021-02-17] MEDS: Metoclopramide HCl 10 MG TAB PO SCH (08:26)
[2021-02-17] MEDS: Venlafaxine HCl XR 150 MG CAP PO SCH (08:26)
[2021-02-17] MEDS: Montelukast Sodium 10 mg Tablet PO SCH (08:26)
[2021-02-17] MEDS: Heparin 5,000 UNITS/ML VIAL SC SCH ×3 (08:26→20:25)
[2021-02-17] MEDS: Lantus 1000 UNITS/10 ML VIAL SC SCH (08:26)
[2021-02-17 09:16] LABS: Magnesium 1.5 mg/dL (1.6-2.6)
[2021-02-17] MEDS: Lactated Ringer's 1,000 ML IV SCH ×2 (11:05→14:28)
[2021-02-17] MEDS: cefTRIAXone\\ROCEPHIN 1 GM in Sodium Chloride 0.9% 100 ML IVPB SCH (12:00)
[2021-02-17] MEDS ORDERED: Ondansetron ODT 8 MG TAB SL PRN (13:40)
[2021-02-17] MEDS ORDERED: Promethazine HCl 25 MG/ML VIAL IM PRN (13:42)
[2021-02-17] MEDS: Metoclopramide HCl 10 MG/2 ML VIAL IVP SCH ×2 (14:21→22:10)
[2021-02-17] MEDS ORDERED: Magnesium 2 GM/50 ML 2 GM in Premix Bag 1 BAG IVPB SCH (14:45)
[2021-02-17] MEDS: Potassium Chloride 20 MEQ in Premix Bag 1 BAG IVPB SCH ×2 (15:47→17:08)
[2021-02-17] MEDS: Ondansetron PF 4 MG/2 ML Vial IVP PRN (20:21)
[2021-02-17] MEDS: Atorvastatin Calcium 10 MG TAB PO SCH (20:25)
[2021-02-17] MEDS ORDERED: Lantus 1000 UNITS/10 ML VIAL SC SCH (21:00)
[2021-02-18] MEDS: Ondansetron PF 4 MG/2 ML Vial IVP PRN (02:33)
[2021-02-18] MEDS: metroNIDAZOLE 500 MG in Premix Bag 1 BAG IVPB SCH ×3 (05:25→22:12)
[2021-02-18] MEDS: Metoclopramide HCl 10 MG/2 ML VIAL IVP SCH ×3 (05:26→16:37)
[2021-02-18] MEDS ORDERED: Metoclopramide HCl 10 MG/2 ML VIAL IVP SCH (06:00)
[2021-02-18] MEDS: Ondansetron PF 4 MG/2 ML Vial IVP SCH ×4 (06:47→23:53)
[2021-02-18 07:26] LABS: #Basophils 0.1 thou/uL (0.0-0.2); #Eosinphils 0.1 thou/uL (0.0-0.7); #Lymphocytes 3.3 thou/uL (1.20-3.40); #Monocytes 0.7 thou/uL (0.11-0.59); %Basophils 0.4 % (0.0-1.0); %Eosinophils 0.6 % (0.0-10.0); %Lymphocytes 24.9 % (21.0-51.0); %Monocytes 5.1 % (0.0-10.0); %Neutrophils 68.9 % (42.0-75.0); Hemoglobin 10.4 g/dL (12.0-16.0); Mean Corpuscular HGB CONC 33.8 g/dL (32.0-36.0); Mean Corpuscular Hemoglobin 30.8 pg (27.0-31.0); Mean Corpuscular Volume 90.9 fL (78.0-98.0); Mean Platelet Volume 8.5 fL (7.4-10.4); Platelet Count 253 thou/uL (130-400); RBC Distribution Width 13.2 % (11.5-14.5); Red Blood Cell (RBC) Count 3.37 mill/uL (4.20-5.40)
[2021-02-18] MEDS: Dextrose 5%-Lactated Ringers 1,000 ML IV SCH ×3 (07:30→20:41)
[2021-02-18 07:45] LABS: Anion Gap 10 mmol/L (10-20); BUN (Urea Nitrogen) 10 mg/dL (7.0-18.7); Calc. Creatinine Clearance 144 mL/min (70-130); Calcium 8.5 mg/dL (7.8-10.44); Carbon Dioxide 24 mmol/L (22-29); Chloride 106 mmol/L (98-107); Glucose 70 mg/dL (70-105); Potassium 3.4 mmol/L (3.5-5.1); Sodium 137 mmol/L (136-145)
[2021-02-18] MEDS: Venlafaxine HCl XR 150 MG CAP PO SCH (08:29)
[2021-02-18] MEDS: HumaLOG 300 UNITS/3 ML VIAL SC SCH (08:30)
[2021-02-18] MEDS: Montelukast Sodium 10 mg Tablet PO SCH (08:30)
[2021-02-18] MEDS: Promethazine HCl 25 MG/ML VIAL IM PRN (08:32)
[2021-02-18] MEDS: Heparin 5,000 UNITS/ML VIAL SC SCH ×3 (08:49→20:41)
[2021-02-18] MEDS: cefTRIAXone\\ROCEPHIN 1 GM in Sodium Chloride 0.9% 100 ML IVPB SCH (11:11)
[2021-02-18] MEDS: Sucralfate 1 GM TAB PO SCH ×3 (11:12→20:41)
[2021-02-18] MEDS: Atorvastatin Calcium 10 MG TAB PO SCH (20:41)
[2021-02-19] MEDS: Promethazine HCl 25 MG/ML VIAL IM PRN (02:28)
[2021-02-19] MEDS: metroNIDAZOLE 500 MG in Premix Bag 1 BAG IVPB SCH ×3 (06:00→21:04)
[2021-02-19] MEDS: Ondansetron PF 4 MG/2 ML Vial IVP SCH ×4 (06:01→23:22)
[2021-02-19] MEDS: Dextrose 5%-Lactated Ringers 1,000 ML IV SCH ×3 (06:05→21:03)
[2021-02-19 06:45] LABS: #Eosinphils 0.1 thou/uL (0.0-0.7); #Lymphocytes 3.3 thou/uL (1.20-3.40); #Monocytes 0.6 thou/uL (0.11-0.59); #Neutrophils 7.5 thou/uL (1.40-6.50); %Basophils 0.4 % (0.0-1.0); %Eosinophils 0.9 % (0.0-10.0); %Lymphocytes 28.2 % (21.0-51.0); %Monocytes 5.5 % (0.0-10.0); %Neutrophils 64.9 % (42.0-75.0); Hemoglobin 9.9 g/dL (12.0-16.0); Mean Corpuscular HGB CONC 34.3 g/dL (32.0-36.0); Mean Corpuscular Hemoglobin 31.2 pg (27.0-31.0); Mean Platelet Volume 8.4 fL (7.4-10.4); Platelet Count 236 thou/uL (130-400); RBC Distribution Width 13.5 % (11.5-14.5); Red Blood Cell (RBC) Count 3.16 mill/uL (4.20-5.40); White Blood Cell (WBC) Count 11.5 thou/uL (4.8-10.8)
[2021-02-19 07:05] LABS: Anion Gap 8 mmol/L (10-20); BUN (Urea Nitrogen) 6 mg/dL (7.0-18.7); Calc. Creatinine Clearance 129 mL/min (70-130); Calcium 8.5 mg/dL (7.8-10.44); Carbon Dioxide 27 mmol/L (22-29); Chloride 106 mmol/L (98-107); Glucose 148 mg/dL (70-105); Potassium 3.2 mmol/L (3.5-5.1); Sodium 138 mmol/L (136-145)
[2021-02-19] MEDS: Sucralfate 1 GM TAB PO SCH ×4 (08:15→21:03)
[2021-02-19] MEDS: Metoclopramide HCl 10 MG/2 ML VIAL IVP SCH ×3 (08:16→17:35)
[2021-02-19] MEDS: Venlafaxine HCl XR 150 MG CAP PO SCH (08:16)
[2021-02-19] MEDS: Montelukast Sodium 10 mg Tablet PO SCH (08:16)
[2021-02-19] MEDS: Heparin 5,000 UNITS/ML VIAL SC SCH ×3 (08:16→21:03)
[2021-02-19 09:05] LABS: Magnesium 1.5 mg/dL (1.6-2.6)
[2021-02-19] MEDS ORDERED: Saccharomyces boulardii 250 MG CAP PO SCH (09:30)
[2021-02-19] MEDS ORDERED: Magnesium 2 GM/50 ML 2 GM in Premix Bag 1 BAG IVPB SCH (10:00)
[2021-02-19] MEDS: cefTRIAXone\\ROCEPHIN 1 GM in Sodium Chloride 0.9% 100 ML IVPB SCH (11:58)
[2021-02-19] MEDS: Potassium Chloride 20 MEQ in Premix Bag 1 BAG IVPB SCH ×2 (11:59→14:28)
[2021-02-19] MEDS: Atorvastatin Calcium 10 MG TAB PO SCH (21:03)
[2021-02-20] MEDS: Dextrose 5%-Lactated Ringers 1,000 ML IV SCH ×3 (05:48→20:37)
[2021-02-20] MEDS: metroNIDAZOLE 500 MG in Premix Bag 1 BAG IVPB SCH (05:48)
[2021-02-20] MEDS: Ondansetron PF 4 MG/2 ML Vial IVP SCH ×4 (05:49→23:58)
[2021-02-20 06:53] LABS: Anion Gap 8 mmol/L (10-20); BUN (Urea Nitrogen) 4 mg/dL (7.0-18.7); Calc. Creatinine Clearance 135 mL/min (70-130); Calcium 8.4 mg/dL (7.8-10.44); Carbon Dioxide 25 mmol/L (22-29); Chloride 107 mmol/L (98-107); Glucose 127 mg/dL (70-105); Sodium 137 mmol/L (136-145)
[2021-02-20 06:55] LABS: Magnesium 1.5 mg/dL (1.6-2.6)
[2021-02-20 07:00] LABS: Phosphorus 1.8 mg/dL (2.3-4.7)
[2021-02-20 07:17] LABS: #Basophils 0.1 thou/uL (0.0-0.2); #Eosinphils 0.1 thou/uL (0.0-0.7); #Lymphocytes 3.3 thou/uL (1.20-3.40); #Monocytes 0.7 thou/uL (0.11-0.59); #Neutrophils 7.1 thou/uL (1.40-6.50); %Basophils 0.5 % (0.0-1.0); %Eosinophils 0.9 % (0.0-10.0); %Lymphocytes 29.6 % (21.0-51.0); %Monocytes 6.1 % (0.0-10.0); Hemoglobin 10.2 g/dL (12.0-16.0); Mean Corpuscular Hemoglobin 30.2 pg (27.0-31.0); Mean Corpuscular Volume 91.5 fL (78.0-98.0); Platelet Count 252 thou/uL (130-400); RBC Distribution Width 13.6 % (11.5-14.5); Red Blood Cell (RBC) Count 3.37 mill/uL (4.20-5.40); White Blood Cell (WBC) Count 11.3 thou/uL (4.8-10.8)
[2021-02-20] MEDS ORDERED: Potassium Chloride 20 MEQ TAB PO SCH (08:00)
[2021-02-20] MEDS: Acetaminophen 500 MG TAB PO PRN (08:24)
[2021-02-20] MEDS: Venlafaxine HCl XR 150 MG CAP PO SCH (08:25)
[2021-02-20] MEDS: Metoclopramide HCl 10 MG TAB PO SCH ×3 (08:25→16:47)
[2021-02-20] MEDS: Montelukast Sodium 10 mg Tablet PO SCH (08:25)
[2021-02-20] MEDS: Heparin 5,000 UNITS/ML VIAL SC SCH ×3 (08:26→21:30)
[2021-02-20] MEDS: Sucralfate 1 GM TAB PO SCH ×4 (08:26→20:37)
[2021-02-20] MEDS: Saccharomyces boulardii 250 MG CAP PO SCH (08:26)
[2021-02-20] MEDS ORDERED: PHOS-NAK 1 PKT PACK PO SCH (08:50)
[2021-02-20] MEDS ORDERED: Magnesium 2 GM/50 ML 2 GM in Premix Bag 1 BAG IVPB SCH (09:00)
[2021-02-20] MEDS ORDERED: Magnesium Oxide 400 MG TAB PO SCH (09:00)
[2021-02-20] MEDS: Atorvastatin Calcium 10 MG TAB PO SCH (20:37)
[2021-02-21] MEDS: Ondansetron PF 4 MG/2 ML Vial IVP SCH ×2 (05:43→12:07)
[2021-02-21 07:41] LABS: #Eosinphils 0.1 thou/uL (0.0-0.7); #Lymphocytes 3.3 thou/uL (1.20-3.40); #Monocytes 0.8 thou/uL (0.11-0.59); #Neutrophils 7.8 thou/uL (1.40-6.50); %Basophils 0.3 % (0.0-1.0); %Eosinophils 0.9 % (0.0-10.0); %Lymphocytes 27.8 % (21.0-51.0); %Monocytes 6.2 % (0.0-10.0); %Neutrophils 64.7 % (42.0-75.0); Mean Corpuscular HGB CONC 32.3 g/dL (32.0-36.0); Mean Corpuscular Volume 92.8 fL (78.0-98.0); Mean Platelet Volume 8.9 fL (7.4-10.4); Platelet Count 258 thou/uL (130-400); Red Blood Cell (RBC) Count 3.33 mill/uL (4.20-5.40)
[2021-02-21 08:00] LABS: Anion Gap 8 mmol/L (10-20); BUN (Urea Nitrogen) Less than 4 mg/dL (7.0-18.7); Calc. Creatinine Clearance 137 mL/min (70-130); Calcium 8.7 mg/dL (7.8-10.44); Carbon Dioxide 27 mmol/L (22-29); Chloride 107 mmol/L (98-107); Glucose 134 mg/dL (70-105); Magnesium 1.4 mg/dL (1.6-2.6); Phosphorus 2.2 mg/dL (2.3-4.7); Potassium 3.5 mmol/L (3.5-5.1); Sodium 138 mmol/L (136-145)
[2021-02-21] MEDS: Saccharomyces boulardii 250 MG CAP PO SCH (08:30)
[2021-02-21] MEDS: Heparin 5,000 UNITS/ML VIAL SC SCH (08:30)
[2021-02-21] MEDS: Venlafaxine HCl XR 150 MG CAP PO SCH (08:30)
[2021-02-21] MEDS: Montelukast Sodium 10 mg Tablet PO SCH (08:30)
[2021-02-21] MEDS: Metoclopramide HCl 10 MG TAB PO SCH ×2 (08:30→12:06)
[2021-02-21] MEDS: Sucralfate 1 GM TAB PO SCH ×2 (08:30→12:06)
[2021-02-21] MEDS ORDERED: Magnesium 2 GM/50 ML 2 GM in Premix Bag 1 BAG IVPB SCH (11:30)
[2021-02-21 15:50] VITALS: BP 124/86; TEMP 98.4
== END 2021-02-21 15:58 | disposition home or self-care (01) | DRG 872 ==
LOC: ERS 20:01 → T4-A 22:23
PROVIDERS: ADMIT Family Medicine; ATTEND Family Medicine
DX: A41.4 Sepsis due to anaerobes (principal); A09 Infectious gastroenteritis and colitis, unspecified; N17.9 Acute kidney failure, unspecified; E87.0 Hyperosmolality and hypernatremia; Z68.41 Body mass index [BMI] 40.0-44.9, adult; Z20.822 Contact with and (suspected) exposure to COVID-19; G47.33 Obstructive sleep apnea (adult) (pediatric); I10 Essential (primary) hypertension; J45.909 Unspecified asthma, uncomplicated; E66.01 Morbid (severe) obesity due to excess calories; F41.9 Anxiety disorder, unspecified; F32.A Depression, unspecified; E11.43 Type 2 diabetes mellitus with diabetic autonomic (poly)neuropathy; K31.84 Gastroparesis; E78.5 Hyperlipidemia, unspecified; E87.6 Hypokalemia; Z79.4 Long term (current) use of insulin; Z90.49 Acquired absence of other specified parts of digestive tract; Z79.84 Long term (current) use of oral hypoglycemic drugs; Z79.899 Other long term (current) drug therapy; Z79.51 Long term (current) use of inhaled steroids
CPT/HCPCS: 36415; 36416; 74177; 80048; 80053; 81001; 83605; 83630; 83690; 83735; 84100; 84145; 85025; 87040; 87045; 87046; 87086; 87324; 87427; 87449; 93005; 93010; 96365; 96367; 96375; J0696; J1644; J1815; J2270; J2405; J2543; J2550; J2765; J3370; J3475; J3480; J3490; J7120; Q9967; U0002

== ENCOUNTER 2022-09-22 10:19 | Observation (INO) | payer OTHER ==
[2022-09-22 10:51] LABS: #Basophils 0.1 thou/uL (0.0-0.2); #Eosinphils 0.2 thou/uL (0.0-0.7); #Monocytes 0.6 thou/uL (0.11-0.59); #Neutrophils 8.7 thou/uL (1.40-6.50); %Basophils 0.4 % (0.0-1.0); %Eosinophils 1.6 % (0.0-10.0); %Lymphocytes 28.7 % (21.0-51.0); %Monocytes 4.5 % (0.0-10.0); %Neutrophils 64.5 % (42.0-75.0); Hematocrit 38.5 % (36.0-47.0); Hemoglobin 13.8 g/dL (12.0-16.0); Mean Corpuscular HGB CONC 35.8 g/dL (32.0-36.0); Mean Corpuscular Hemoglobin 32.9 pg (27.0-31.0); Mean Corpuscular Volume 91.9 fl (78.0-98.0); Mean Platelet Volume 11.1 fL (7.4-10.4); Platelet Count 333 10x3/uL (130-400); RBC Distribution Width 13.7 % (11.5-14.5); Red Blood Cell (RBC) Count 4.19 mill/uL (4.20-5.40); White Blood Cell (WBC) Count 13.4 10x3/uL (4.8-10.8)
[2022-09-22 11:06] LABS: BHCG - Serum Negative (NEGATIVE); Pregs Control Background? CLEAR/WHITE (CLR/WHITE); Pregs Control Bar Appear? YES (CONTROL BAR)
[2022-09-22 11:29] LABS: Bacteria/HPF None Seen HPF (None Seen); Bilirubin Negative (Negative); Blood, Urine Negative (Negative); CAUTI Indications for Culture Dysuria,urgency,freq; Clarity Clear (Clear); Glucose, Urine (Dipstick) Greater than 1000 mg/dL (Negative); Ketone, Urine Negative (Negative); Leukocyte Negative Leu/uL (Negative); Nitrite Negative (Negative); Protein, Urine (Dipstick) 20 mg/dL (Neg-Trace); RBC/HPF 0-3 HPF (0-3); Specific Gravity, Urine 1.025 (1.002-1.036); Squamous Epithelial 0-3 HPF (0-3); Urobilinogen Normal mg/dL (Less than 2); WBC/HPF 0-3 HPF (0-3); pH, Urine 5.5 (5.0-9.0)
[2022-09-22 11:30] LABS: ALT (SGPT) 21 U/L (8-55); AST (SGOT) 23 U/L (5-34); Albumin 3.5 g/dL (3.5-5.0); Alkaline Phosphatase 150 U/L (40-110); Anion Gap 12 mmol/L (10-20); BUN (Urea Nitrogen) 19 mg/dL (7.0-18.7); Bilirubin, Total 0.2 mg/dL (0.2-1.2); Calc. Creatinine Clearance 0 mL/min (70-130); Calcium 9.1 mg/dL (7.8-10.44); Carbon Dioxide 24 mmol/L (22-29); Chloride 100 mmol/L (98-107); Estimated GFR 52; Glucose 361 mg/dL (70-105); Lipase 33 U/L (8-78); Potassium 3.2 mmol/L (3.5-5.1); Protein, Total 7.5 g/dL (6.0-8.3); Sodium 133 mmol/L (136-145)
[2022-09-22 11:32] LABS: Urine Culture Reflex No No
[2022-09-22] MEDS ORDERED: Potassium Chloride 20 MEQ TAB ONE (11:43)
[2022-09-22 15:09] LABS: Actual Bicarbonate (HCO3v) 19.4 mEq/L (22-28); Analyzer IN Cardio ER; Base Excess -6.4 mEq/L (-2.0 to +3.0); Calcium, Ionized (venous) 1.08 mmol/L (1.16-1.32); Chloride (VBG) 105 mmol/L (98-106); Hematocrit-VBG 38 % (36.0-47.0); Potassium (VBG) 4.04 mmol/L (3.70-5.30); Sodium 135.4 mmol/L (133-146); pH (venous) 7.307 (7.32-7.43)
[2022-09-22 16:09] LABS: Anion Gap 11 mmol/L (10-20); BUN (Urea Nitrogen) 17 mg/dL (7.0-18.7); Calc. Creatinine Clearance 0 mL/min (70-130); Calcium 8.1 mg/dL (7.8-10.44); Carbon Dioxide 21 mmol/L (22-29); Chloride 105 mmol/L (98-107); Estimated GFR 63; Glucose 322 mg/dL (70-105); Potassium 3.9 mmol/L (3.5-5.1); Sodium 133 mmol/L (136-145)
[2022-09-22] MEDS ORDERED: Ondansetron ODT 4 MG TAB PO PRN (17:26)
[2022-09-22] MEDS ORDERED: Acetaminophen 650 MG Suppository PR PRN ×2 (17:26→18:36)
[2022-09-22] MEDS ORDERED: Acetaminophen 325 MG TAB PO PRN ×2 (17:26→18:36)
[2022-09-22] MEDS ORDERED: Guaifenesin DM 100-10/5 ML UDCUP PO PRN (17:26)
[2022-09-22] MEDS ORDERED: Calcium Carbonate 500 MG ChewTAB PO PRN (17:26)
[2022-09-22] MEDS ORDERED: Sodium Chloride 0.9% 1,000 ML IV SCH (17:30)
[2022-09-22] MEDS ORDERED: Dextrose 5% in Water 1,000 ML IV PRN (17:34)
[2022-09-22] MEDS ORDERED: HumaLOG 300 UNITS/3 ML VIAL SC PRN ×2 (17:34)
[2022-09-22] MEDS ORDERED: Dextrose 50% Abboject 50 ML SYRINGE SLOW IVP PRN (17:34)
[2022-09-22] MEDS ORDERED: Glucagon 1 MG/ML KIT IM PRN (17:34)
[2022-09-22 17:58] VITALS: BMI 34.3
[2022-09-22] MEDS: Lactated Ringer's 1,000 ML IV SCH (18:19)
[2022-09-22] MEDS: Ondansetron PF 4 MG/2 ML Vial IVP PRN (18:20)
[2022-09-22] MEDS ORDERED: hydrOXYzine 25 MG TAB PO PRN (19:11)
[2022-09-22] MEDS ORDERED: Insulin Glargine 30 UNITS/0.3 ML VIAL SC SCH (21:00)
[2022-09-22] MEDS ORDERED: Famotidine 20 MG TAB PO SCH (21:00)
[2022-09-22] MEDS ORDERED: Atorvastatin Calcium 10 MG TAB PO SCH (21:00)
[2022-09-23] MEDS: Lactated Ringer's 1,000 ML IV SCH ×2 (02:16→07:24)
[2022-09-23 06:21] LABS: #Eosinphils 0.2 thou/uL (0.0-0.7); #Monocytes 0.7 thou/uL (0.11-0.59); %Basophils 0.3 % (0.0-1.0); %Eosinophils 1.6 % (0.0-10.0); %Lymphocytes 27.9 % (21.0-51.0); %Monocytes 5.3 % (0.0-10.0); %Neutrophils 64.6 % (42.0-75.0); Hematocrit 35.3 % (36.0-47.0); Hemoglobin 12.2 g/dL (12.0-16.0); Mean Corpuscular HGB CONC 34.6 g/dL (32.0-36.0); Mean Corpuscular Hemoglobin 32.2 pg (27.0-31.0); Mean Corpuscular Volume 93.1 fl (78.0-98.0); Mean Platelet Volume 11.1 fL (7.4-10.4); Platelet Count 295 10x3/uL (130-400); Red Blood Cell (RBC) Count 3.79 mill/uL (4.20-5.40); White Blood Cell (WBC) Count 12.4 10x3/uL (4.8-10.8)
[2022-09-23 06:48] LABS: Anion Gap 11 mmol/L (10-20); BUN (Urea Nitrogen) 12 mg/dL (7.0-18.7); Calc. Creatinine Clearance 125 mL/min (70-130); Calcium 8.3 mg/dL (7.8-10.44); Carbon Dioxide 23 mmol/L (22-29); Cardiac Risk 6.3 (Less than 4.5); Chloride 108 mmol/L (98-107); Cholesterol 139 mg/dl (< 200 Desired); Estimated GFR 90; Glucose 156 mg/dL (70-105); HDL Cholesterol 22 mg/dL (>60 Neg Risk); LDL Cholesterol, Calculated 58 mg/dL; Magnesium 1.7 mg/dL (1.6-2.6); Potassium 3.4 mmol/L (3.5-5.1); Sodium 139 mmol/L (136-145); Triglycerides 293 mg/dL (Less than 150)
[2022-09-23 06:49] LABS: Phosphorus 1.6 mg/dL (2.3-4.7)
[2022-09-23] MEDS: Metoclopramide HCl 10 MG TAB PO SCH ×2 (07:24→13:03)
[2022-09-23] MEDS: Ondansetron PF 4 MG/2 ML Vial IVP PRN (07:24)
[2022-09-23] MEDS ORDERED: HumaLOG 300 UNITS/3 ML VIAL SC SCH (08:00)
[2022-09-23] MEDS ORDERED: Magnesium 2 GM/50 ML(in water) 2 GM in Premix Bag 1 BAG IVPB SCH (08:30)
[2022-09-23] MEDS ORDERED: Potassium Chloride 20 MEQ TAB PO SCH (08:30)
[2022-09-23] MEDS ORDERED: PHOS-NAK 1 PKT PACK PO SCH (08:30)
[2022-09-23] MEDS ORDERED: metFORMIN XR 500 MG TAB PO SCH (09:00)
[2022-09-23] MEDS ORDERED: Lisinopril/Hydrochlorothiazide 20/25 mg Tablet PO SCH (09:00)
[2022-09-23] MEDS ORDERED: Empagliflozin 25 MG TAB PO SCH ×2 (09:00)
[2022-09-23] MEDS ORDERED: Venlafaxine HCl XR 75 MG CAP PO SCH (09:00)
[2022-09-23] MEDS ORDERED: Montelukast Sodium 10 mg Tablet PO SCH (09:00)
[2022-09-23] MEDS ORDERED: Venlafaxine HCl XR 150 MG CAP PO SCH (09:00)
[2022-09-23] MEDS ORDERED: Fluconazole 100 MG TAB PO SCH (09:00)
[2022-09-23 16:26] VITALS: BP 114/75; TEMP 97.8
[2022-09-23] MEDS ORDERED: Atorvastatin Calcium 10 MG TAB PO SCH (21:00)
== END 2022-09-23 16:43 | disposition home or self-care (01) ==
LOC: ERS 10:19 → T4-A 16:41
PROVIDERS: ADMIT Family Medicine; ATTEND Family Medicine
DX: N17.9 Acute kidney failure, unspecified (principal); E11.9 Type 2 diabetes mellitus without complications; I10 Essential (primary) hypertension; E78.5 Hyperlipidemia, unspecified; K31.84 Gastroparesis; F41.8 Other specified anxiety disorders; J45.909 Unspecified asthma, uncomplicated; Z79.4 Long term (current) use of insulin; Z79.84 Long term (current) use of oral hypoglycemic drugs; Z79.899 Other long term (current) drug therapy; Z90.89 Acquired absence of other organs; Z90.49 Acquired absence of other specified parts of digestive tract
CPT/HCPCS: 36415; 36416; 80048; 80053; 80061; 81001; 82010; 82805; 83690; 83735; 84100; 84443; 84703; 85025; 96360; 96361; 96374; 96376; G0378; J1815; J2405; J3475; J7050; J7120

== ENCOUNTER 2022-10-16 21:35 | Inpatient (IN) | payer OTHER ==
[~2022-10-16 21:35] MED LIST changes: -Iopamidol-370 76% 500 ML 1 ML ONE; +Iopamidol-370 76% 500 ML MDV (1 ML CHARGE) ONE
[2022-10-16] MEDS ORDERED: Ondansetron PF 4 MG/2 ML Vial ONE (21:55)
[2022-10-16] MEDS ORDERED: Dicyclomine 20 MG TAB ONE (21:55)
[2022-10-16] MEDS ORDERED: Morphine 4 MG/ML VIAL ONE (21:55)
[2022-10-16] MEDS ORDERED: Famotidine/PF 20 mg/2ml Vial ONE (21:55)
[2022-10-16] MEDS ORDERED: Ipratropium/Albuterol 3 ML NEB ONE (21:56)
[2022-10-16 21:59] LABS: Actual Bicarbonate (HCO3v) 24.4 mEq/L (22-28); Base Excess 1.9 mEq/L (-2.0 to +3.0); Calcium, Ionized (venous) 1.09 mmol/L (1.16-1.32); Chloride (VBG) 104 mmol/L (98-106); Hematocrit-VBG 43 % (36.0-47.0); Hemoglobin (Hb) 14.7 g/dL (11.7-15.5); Potassium (VBG) 3.36 mmol/L (3.70-5.30); Sodium 138.4 mmol/L (133-146); pH (venous) 7.494 (7.32-7.43)
[2022-10-16 22:06] LABS: #Eosinphils 0.2 thou/uL (0.0-0.7); #Monocytes 0.5 thou/uL (0.11-0.59); %Basophils 0.2 % (0.0-1.0); %Eosinophils 1.3 % (0.0-10.0); %Lymphocytes 23.7 % (21.0-51.0); %Neutrophils 70.5 % (42.0-75.0); Hematocrit 39.5 % (36.0-47.0); Hemoglobin 13.9 g/dL (12.0-16.0); Mean Corpuscular HGB CONC 35.2 g/dL (32.0-36.0); Mean Corpuscular Hemoglobin 32.1 pg (27.0-31.0); Mean Corpuscular Volume 91.2 fl (78.0-98.0); Platelet Count 349 10x3/uL (130-400); RBC Distribution Width 12.6 % (11.5-14.5); Red Blood Cell (RBC) Count 4.33 mill/uL (4.20-5.40); White Blood Cell (WBC) Count 12.8 10x3/uL (4.8-10.8)
[2022-10-16 22:29] LABS: ALT (SGPT) 16 U/L (8-55); AST (SGOT) 15 U/L (5-34); Albumin 3.7 g/dL (3.5-5.0); Alkaline Phosphatase 107 U/L (40-110); Anion Gap 12 mmol/L (10-20); BHCG - Serum Negative (NEGATIVE); BUN (Urea Nitrogen) 18 mg/dL (7.0-18.7); Bilirubin, Total 0.5 mg/dL (0.2-1.2); Calc. Creatinine Clearance 0 mL/min (70-130); Calcium 9.1 mg/dL (7.8-10.44); Carbon Dioxide 22 mmol/L (22-29); Chloride 103 mmol/L (98-107); Estimated GFR 75; Glucose 278 mg/dL (70-105); Potassium 3.2 mmol/L (3.5-5.1); Pregs Control Background? CLEAR/WHITE (CLR/WHITE); Pregs Control Bar Appear? YES (CONTROL BAR); Protein, Total 7.7 g/dL (6.0-8.3); Sodium 134 mmol/L (136-145)
[2022-10-16 22:38] LABS: Troponin I 0.046 ng/mL (< 0.028)
[2022-10-16 23:43] LABS: Bacteria/HPF None Seen HPF (None Seen); Bilirubin Negative (Negative); Blood, Urine Negative (Negative); CAUTI Indications for Culture Pelvic or flank pain; Clarity Clear (Clear); Glucose, Urine (Dipstick) >=1000 mg/dL (Negative); Ketone, Urine 10 mg/dL (Negative); Leukocyte Negative Leu/uL (Negative); Nitrite Negative (Negative); Protein, Urine (Dipstick) 30 mg/dL (Neg-Trace); Urobilinogen 3 mg/dL (Less than 2); WBC/HPF 0-3 HPF (0-3)
[2022-10-16 23:45] LABS: Specific Gravity, Urine 1.053 (1.002-1.036)
[2022-10-16 23:46] LABS: Urine Culture Reflex No No
[2022-10-17] MEDS ORDERED: Guaifenesin DM 100-10/5 ML UDCUP PO PRN (00:02)
[2022-10-17] MEDS ORDERED: Calcium Carbonate 500 MG ChewTAB PO PRN (00:02)
[2022-10-17] MEDS ORDERED: Acetaminophen 650 MG Suppository PR PRN (00:02)
[2022-10-17] MEDS ORDERED: Promethazine HCl 25 MG/ML VIAL ONE (00:04)
[2022-10-17] MEDS ORDERED: Metoclopramide HCl 10 MG/2 ML VIAL IVP PRN (00:19)
[2022-10-17] MEDS ORDERED: Potassium Chloride 20 MEQ TAB PO SCH (00:30)
[2022-10-17] MEDS ORDERED: Lidocaine 2% Viscous Solution 20 ML, Aluminum & Magnesium Hydroxide 30 ML, Donnatal Eli... SSW SCH (00:30)
[2022-10-17] MEDS ORDERED: Glucagon 1 MG/ML KIT IM PRN (00:36)
[2022-10-17] MEDS ORDERED: Dextrose 5% in Water 1,000 ML IV PRN (00:36)
[2022-10-17] MEDS ORDERED: Dextrose 50% Abboject 50 ML SYRINGE SLOW IVP PRN (00:36)
[2022-10-17] MEDS ORDERED: HumaLOG 300 UNITS/3 ML VIAL SC PRN ×2 (00:36)
[2022-10-17 00:59] LABS: Lactic Acid 1.4 mmol/L (0.5-2.2)
[2022-10-17 01:39] LABS: Troponin I 0.043 ng/mL (< 0.028)
[2022-10-17] MEDS: Lactated Ringer's 1,000 ML IV SCH ×4 (02:22→21:46)
[2022-10-17 02:36] VITALS: BMI 33.7
[2022-10-17 03:02] LABS: SARS-CoV-2 NAA Rapid Test DETECTED (NotDetected)
[2022-10-17] MEDS ORDERED: Albuterol 200 PUFF (6.7GM INHALER) INH PRN (03:47)
[2022-10-17] MEDS ORDERED: Famotidine/PF 20 mg/2ml Vial SLOW IVP PRN (03:52)
[2022-10-17] MEDS ORDERED: hydrOXYzine 25 MG TAB PO PRN (03:52)
[2022-10-17] MEDS ORDERED: Ondansetron ODT 4 MG TAB PO PRN (03:55)
[2022-10-17 04:53] LABS: #Eosinphils 0.1 thou/uL (0.0-0.7); #Monocytes 0.5 thou/uL (0.11-0.59); #Neutrophils 7.1 thou/uL (1.40-6.50); %Basophils 0.2 % (0.0-1.0); %Eosinophils 0.9 % (0.0-10.0); %Lymphocytes 26.7 % (21.0-51.0); %Monocytes 4.4 % (0.0-10.0); %Neutrophils 67.5 % (42.0-75.0); Hematocrit 35.9 % (36.0-47.0); Hemoglobin 12.1 g/dL (12.0-16.0); Mean Corpuscular HGB CONC 33.7 g/dL (32.0-36.0); Mean Corpuscular Hemoglobin 32.1 pg (27.0-31.0); Mean Platelet Volume 10.8 fL (7.4-10.4); Platelet Count 271 10x3/uL (130-400); RBC Distribution Width 12.7 % (11.5-14.5); Red Blood Cell (RBC) Count 3.77 mill/uL (4.20-5.40); White Blood Cell (WBC) Count 10.6 10x3/uL (4.8-10.8)
[2022-10-17 05:09] LABS: Mean Corpuscular Volume 95.2 fl (78.0-98.0)
[2022-10-17 05:27] LABS: Troponin I 0.036 ng/mL (< 0.028)
[2022-10-17 05:33] LABS: Anion Gap 6 mmol/L (10-20); BUN (Urea Nitrogen) 15 mg/dL (7.0-18.7); Calc. Creatinine Clearance 115 mL/min (70-130); Calcium 8.3 mg/dL (7.8-10.44); Carbon Dioxide 25 mmol/L (22-29); Chloride 107 mmol/L (98-107); Estimated GFR 82; Glucose 200 mg/dL (70-105); Potassium 3.4 mmol/L (3.5-5.1); Sodium 135 mmol/L (136-145)
[2022-10-17] MEDS ORDERED: Potassium Chloride 20 MEQ in Premix Bag 1 BAG IVPB SCH (06:45)
[2022-10-17] MEDS ORDERED: Potassium Bicarbonate/Cit Ac 20 MEQ TAB PO SCH (08:00)
[2022-10-17] MEDS ORDERED: Famotidine 20 MG TAB PO SCH (09:00)
[2022-10-17] MEDS ORDERED: Famotidine/PF 20 mg/2ml Vial SLOW IVP SCH (09:00)
[2022-10-17] MEDS: Lisinopril/Hydrochlorothiazide 20/25 mg Tablet PO SCH (10:00)
[2022-10-17] MEDS: Venlafaxine XR 37.5 MG CAP PO SCH (10:01)
[2022-10-17] MEDS: Metoclopramide HCl 10 MG TAB PO SCH ×3 (10:01→17:51)
[2022-10-17] MEDS: Potassium Chloride 20 MEQ TAB PO SCH (10:01)
[2022-10-17] MEDS: Montelukast Sodium 10 mg Tablet PO SCH (10:02)
[2022-10-17] MEDS: metFORMIN XR 500 MG TAB PO SCH ×2 (10:02→21:45)
[2022-10-17] MEDS: Atorvastatin Calcium 10 MG TAB PO SCH (10:02)
[2022-10-17] MEDS ORDERED: Scopolamine 1.5 mg/72 hour Patch TD SCH (12:00)
[2022-10-17] MEDS: Acetaminophen 325 MG TAB PO PRN (12:41)
[2022-10-18 08:37] VITALS: BP 101/66; TEMP 98.6
[2022-10-18] MEDS: Potassium Chloride 20 MEQ TAB PO SCH (09:34)
[2022-10-18] MEDS: Lisinopril/Hydrochlorothiazide 20/25 mg Tablet PO SCH (09:34)
[2022-10-18] MEDS: Atorvastatin Calcium 10 MG TAB PO SCH (09:34)
[2022-10-18] MEDS: Venlafaxine XR 37.5 MG CAP PO SCH (09:34)
[2022-10-18] MEDS: Metoclopramide HCl 10 MG TAB PO SCH ×2 (09:35→11:15)
[2022-10-18] MEDS: Montelukast Sodium 10 mg Tablet PO SCH (09:35)
[2022-10-18] MEDS: metFORMIN XR 500 MG TAB PO SCH (09:35)
[2022-10-18] MEDS: Acetaminophen 325 MG TAB PO PRN (11:15)
== END 2022-10-18 15:00 | disposition home or self-care (01) | DRG 391 ==
LOC: ERS 21:35 → T4-B 23:30 → OBSVTOIN 10-18 10:19
PROVIDERS: ADMIT Emergency Medicine; ATTEND Emergency Medicine
DX: A08.4 Viral intestinal infection, unspecified (principal); U07.1 COVID-19; E87.20 Acidosis, unspecified; I10 Essential (primary) hypertension; J45.909 Unspecified asthma, uncomplicated; F41.9 Anxiety disorder, unspecified; F32.A Depression, unspecified; E86.0 Dehydration; E87.6 Hypokalemia; E11.65 Type 2 diabetes mellitus with hyperglycemia; R07.89 Other chest pain; N28.89 Other specified disorders of kidney and ureter; E78.5 Hyperlipidemia, unspecified; G47.33 Obstructive sleep apnea (adult) (pediatric); Z90.49 Acquired absence of other specified parts of digestive tract; Z79.51 Long term (current) use of inhaled steroids; Z79.84 Long term (current) use of oral hypoglycemic drugs; Z79.4 Long term (current) use of insulin; Z98.890 Other specified postprocedural states; Z79.899 Other long term (current) drug therapy
CPT/HCPCS: 36415; 36416; 71045; 74177; 80048; 80053; 81001; 82805; 83605; 83690; 84145; 84443; 84484; 84703; 85025; 93005; 96361; 96365; 96372; 96375; G0378; J1650; J2270; J2405; J2550; J7120; J7620; Q9967; S0028

== ENCOUNTER 2022-12-12 09:29 | Outpatient (CLI) | payer OTHER ==
[2022-12-12] MEDS ORDERED: Magnevist 469MG/ML 20 ML VIAL ONE (09:54)
== END 2022-12-12 09:30 | disposition home or self-care (01) ==
LOC: BICMRI 09:29
PROVIDERS: ATTEND Student in an Organized Health Care Education/Training Program
DX: N28.89 Other specified disorders of kidney and ureter (principal)
CPT/HCPCS: 74183; 82565; A9579

== ENCOUNTER 2023-01-22 19:08 | Emergency (ER) | payer OTHER ==
[~2023-01-22 19:08] MED LIST changes: +Iopamidol 370 76% 100 ML VIAL ONE; -Iopamidol-370 76% 500 ML MDV (1 ML CHARGE) ONE
[2023-01-22] MEDS ORDERED: Ondansetron PF 4 MG/2 ML Vial ONE (19:50)
[2023-01-22 19:56] LABS: #Basophils 0.1 thou/uL (0.0-0.2); #Eosinphils 0.2 thou/uL (0.0-0.7); #Monocytes 0.5 thou/uL (0.11-0.59); #Neutrophils 9.1 thou/uL (1.40-6.50); %Basophils 0.4 % (0.0-1.0); %Eosinophils 1.4 % (0.0-10.0); %Lymphocytes 26.1 % (21.0-51.0); %Neutrophils 67.7 % (42.0-75.0); Hematocrit 41.2 % (36.0-47.0); Hemoglobin 14.1 g/dL (12.0-16.0); Mean Corpuscular HGB CONC 34.2 g/dL (32.0-36.0); Mean Corpuscular Hemoglobin 31.5 pg (27.0-31.0); Mean Platelet Volume 10.6 fL (7.4-10.4); Platelet Count 387 10x3/uL (130-400); RBC Distribution Width 13.1 % (11.5-14.5); Red Blood Cell (RBC) Count 4.48 mill/uL (4.20-5.40); White Blood Cell (WBC) Count 13.4 10x3/uL (4.8-10.8)
[2023-01-22 20:20] LABS: ALT (SGPT) 24 U/L (8-55); AST (SGOT) 17 U/L (5-34); Albumin 3.9 g/dL (3.5-5.0); Alkaline Phosphatase 121 U/L (40-110); Anion Gap 15 mmol/L (10-20); BUN (Urea Nitrogen) 20 mg/dL (7.0-18.7); Bilirubin, Total 0.6 mg/dL (0.2-1.2); Calc. Creatinine Clearance 0 mL/min (70-130); Calcium 9.6 mg/dL (7.8-10.44); Carbon Dioxide 21 mmol/L (22-29); Chloride 102 mmol/L (98-107); Estimated GFR 73; Globulin 3.9 g/dL (2.4-3.5); Glucose 247 mg/dL (70-105); Lipase 15 U/L (8-78); Potassium 3.5 mmol/L (3.5-5.1); Protein, Total 7.8 g/dL (6.0-8.3); Sodium 134 mmol/L (136-145)
[2023-01-22 20:36] LABS: BHCG - Serum Negative (NEGATIVE); Pregs Control Background? CLEAR/WHITE (CLR/WHITE); Pregs Control Bar Appear? YES (CONTROL BAR)
[2023-01-22] MEDS ORDERED: Dicyclomine 20 MG TAB ONE (20:41)
[2023-01-22 21:50] LABS: Bacteria/HPF None Seen HPF (None Seen); Bilirubin Negative (Negative); Blood, Urine 2+ (Negative); CAUTI Indications for Culture Pelvic or flank pain; Clarity Clear (Clear); Glucose, Urine (Dipstick) 150 mg/dL (Negative); Ketone, Urine 40 mg/dL (Negative); Leukocyte Negative Leu/uL (Negative); Nitrite Negative (Negative); Protein, Urine (Dipstick) 30 mg/dL (Neg-Trace); RBC/HPF 0-3 HPF (0-3); Specific Gravity, Urine 1.027 (1.002-1.036); WBC/HPF 0-3 HPF (0-3)
[2023-01-22] MEDS ORDERED: Haloperidol 1 MG TAB ONE (22:01)
[2023-01-22] MEDS ORDERED: Haloperidol Lactate 5 MG/ML VIAL ONE (22:14)
[2023-01-22 22:19] LABS: Urine Culture Reflex No No
== END 2023-01-22 22:22 | disposition home or self-care (01) ==
LOC: ERS 19:08
DX: R10.9 Unspecified abdominal pain (principal); E11.9 Type 2 diabetes mellitus without complications; I10 Essential (primary) hypertension; Z79.84 Long term (current) use of oral hypoglycemic drugs; Z79.4 Long term (current) use of insulin
CPT/HCPCS: 36415; 74177; 80053; 81001; 83605; 83690; 84703; 85025; 93005; 96361; 96374; 96375; J1630; J2405; Q9967

== ENCOUNTER → 2023-01-26 | Day surgery (SDC) | payer OTHER ==
[2023-01-26 09:44] LABS: #Eosinphils 0.2 thou/uL (0.0-0.7); #Monocytes 0.7 thou/uL (0.11-0.59); #Neutrophils 9.2 thou/uL (1.40-6.50); %Basophils 0.3 % (0.0-1.0); %Eosinophils 1.5 % (0.0-10.0); %Lymphocytes 31.4 % (21.0-51.0); %Monocytes 4.5 % (0.0-10.0); Hematocrit 36.8 % (36.0-47.0); Hemoglobin 12.4 g/dL (12.0-16.0); Mean Corpuscular HGB CONC 33.7 g/dL (32.0-36.0); Mean Corpuscular Hemoglobin 31.8 pg (27.0-31.0); Mean Corpuscular Volume 94.4 fl (78.0-98.0); Mean Platelet Volume 10.6 fL (7.4-10.4); Platelet Count 293 10x3/uL (130-400); RBC Distribution Width 13.4 % (11.5-14.5); White Blood Cell (WBC) Count 14.9 10x3/uL (4.8-10.8)
[2023-01-26 10:05] LABS: Prothrombin Time 13.9 sec (12.0-14.7)
== END ==
LOC: CT 09:45
PROVIDERS: ATTEND Urology
DX: N28.89 Other specified disorders of kidney and ureter (principal); E11.69 Type 2 diabetes mellitus with other specified complication; E66.9 Obesity, unspecified; N20.0 Calculus of kidney; F41.9 Anxiety disorder, unspecified; J45.909 Unspecified asthma, uncomplicated; M19.90 Unspecified osteoarthritis, unspecified site; F32.A Depression, unspecified; I10 Essential (primary) hypertension; Z98.890 Other specified postprocedural states; Z68.33 Body mass index [BMI] 33.0-33.9, adult; Z79.84 Long term (current) use of oral hypoglycemic drugs; Z79.899 Other long term (current) drug therapy
CPT/HCPCS: 85025; 85610; 85730

== ENCOUNTER → 2023-02-01 | Day surgery (SDC) | payer OTHER | LOC: CT 09:16 | PROVIDERS: ATTEND Urology | PROC: 0TB03ZX Excision of Right Kidney, Percutaneous Approach, Diagnostic (ICD-10-PCS; principal; 2023-02-01) | DX: C64.1 Malignant neoplasm of right kidney, except renal pelvis (principal); E11.69 Type 2 diabetes mellitus with other specified complication; E66.9 Obesity, unspecified; N20.0 Calculus of kidney; F41.9 Anxiety disorder, unspecified; M19.90 Unspecified osteoarthritis, unspecified site; J45.909 Unspecified asthma, uncomplicated; E78.00 Pure hypercholesterolemia, unspecified; G89.29 Other chronic pain; F32.A Depression, unspecified; I10 Essential (primary) hypertension; Z79.84 Long term (current) use of oral hypoglycemic drugs; Z79.899 Other long term (current) drug therapy | CPT/HCPCS: 50200; 77012; 88305; 88333; 88334; 88341; 88342 ==

== ENCOUNTER 2023-02-03 14:40 | Emergency (ER) | payer OTHER ==
[2023-02-03 16:02] LABS: #Basophils 0.1 thou/uL (0.0-0.2); #Eosinphils 0.2 thou/uL (0.0-0.7); #Neutrophils 11.9 thou/uL (1.40-6.50); %Basophils 0.3 % (0.0-1.0); %Eosinophils 1.4 % (0.0-10.0); %Lymphocytes 19.5 % (21.0-51.0); %Neutrophils 72.4 % (42.0-75.0); Hematocrit 41.1 % (36.0-47.0); Hemoglobin 13.9 g/dL (12.0-16.0); Mean Corpuscular HGB CONC 33.8 g/dL (32.0-36.0); Mean Corpuscular Volume 91.5 fl (78.0-98.0); Mean Platelet Volume 10.6 fL (7.4-10.4); Platelet Count 346 10x3/uL (130-400); RBC Distribution Width 12.9 % (11.5-14.5); Red Blood Cell (RBC) Count 4.49 mill/uL (4.20-5.40); White Blood Cell (WBC) Count 16.4 10x3/uL (4.8-10.8)
[2023-02-03 16:10] LABS: Bacteria/HPF None Seen HPF (None Seen); Bilirubin Negative (Negative); Blood, Urine Negative (Negative); CAUTI Indications for Culture Pelvic or flank pain; Clarity Clear (Clear); Glucose, Urine (Dipstick) 50 mg/dL (Negative); Ketone, Urine Negative (Negative); Leukocyte Negative Leu/uL (Negative); Nitrite Negative (Negative); Protein, Urine (Dipstick) Negative (Neg-Trace); RBC/HPF 0-3 HPF (0-3); Specific Gravity, Urine 1.014 (1.002-1.036); Squamous Epithelial 0-3 HPF (0-3); Urobilinogen Normal mg/dL (Less than 2); WBC/HPF 0-3 HPF (0-3)
[2023-02-03 16:13] LABS: Urine Culture Reflex No No
[2023-02-03] MEDS ORDERED: Ondansetron PF 4 MG/2 ML Vial ONE (16:18)
[2023-02-03] MEDS ORDERED: Morphine 4 MG/ML VIAL ONE (16:18)
[2023-02-03 16:42] LABS: ALT (SGPT) 17 U/L (8-55); AST (SGOT) 13 U/L (5-34); Albumin 3.7 g/dL (3.5-5.0); Alkaline Phosphatase 105 U/L (40-110); Anion Gap 13 mmol/L (10-20); BUN (Urea Nitrogen) 21 mg/dL (7.0-18.7); Bilirubin, Total 0.5 mg/dL (0.2-1.2); Calc. Creatinine Clearance 0 mL/min (70-130); Calcium 9.4 mg/dL (7.8-10.44); Carbon Dioxide 22 mmol/L (22-29); Chloride 101 mmol/L (98-107); Estimated GFR 66; Glucose 249 mg/dL (70-105); Potassium 3.3 mmol/L (3.5-5.1); Protein, Total 7.7 g/dL (6.0-8.3); Sodium 133 mmol/L (136-145)
[2023-02-03] MEDS ORDERED: Ketorolac Tromethamine 30 MG/ML VIAL ONE (17:52)
== END 2023-02-03 18:10 | disposition home or self-care (01) ==
LOC: ERS 14:40
DX: N20.0 Calculus of kidney (principal); C64.1 Malignant neoplasm of right kidney, except renal pelvis; I10 Essential (primary) hypertension; E11.43 Type 2 diabetes mellitus with diabetic autonomic (poly)neuropathy; K31.84 Gastroparesis; J45.909 Unspecified asthma, uncomplicated; G47.33 Obstructive sleep apnea (adult) (pediatric); Z79.84 Long term (current) use of oral hypoglycemic drugs; Z79.899 Other long term (current) drug therapy; Z99.89 Dependence on other enabling machines and devices; Z79.4 Long term (current) use of insulin
CPT/HCPCS: 36415; 80053; 81001; 83690; 85025; 96361; 96374; 96375; J1885; J2270; J2405

== ENCOUNTER 2023-04-10 22:56 | Emergency (ER) | payer OTHER ==
[2023-04-10 23:45] LABS: #Basophils 0.1 thou/uL (0.0-0.2); #Eosinphils 0.3 thou/uL (0.0-0.7); #Monocytes 0.6 thou/uL (0.11-0.59); #Neutrophils 11.2 thou/uL (1.40-6.50); %Basophils 0.4 % (0.0-1.0); %Eosinophils 1.8 % (0.0-10.0); %Lymphocytes 20.1 % (21.0-51.0); %Monocytes 4.1 % (0.0-10.0); %Neutrophils 73.3 % (42.0-75.0); Hematocrit 42.7 % (36.0-47.0); Hemoglobin 14.7 g/dL (12.0-16.0); Mean Corpuscular HGB CONC 34.4 g/dL (32.0-36.0); Mean Corpuscular Hemoglobin 32.2 pg (27.0-31.0); Mean Corpuscular Volume 93.4 fl (78.0-98.0); Mean Platelet Volume 10.4 fL (7.4-10.4); Platelet Count 400 10x3/uL (130-400); Red Blood Cell (RBC) Count 4.57 mill/uL (4.20-5.40); White Blood Cell (WBC) Count 15.2 10x3/uL (4.8-10.8)
[2023-04-11] LABS: BHCG - Serum Negative (NEGATIVE); Pregs Control Background? CLEAR/WHITE (CLR/WHITE); Pregs Control Bar Appear? YES (CONTROL BAR)
[2023-04-11 00:09] LABS: ALT (SGPT) 29 U/L (8-55); AST (SGOT) 25 U/L (5-34); Albumin 3.8 g/dL (3.5-5.0); Alkaline Phosphatase 105 U/L (40-110); Anion Gap 13 mmol/L (10-20); BUN (Urea Nitrogen) 18 mg/dL (7.0-18.7); Bilirubin, Total 0.5 mg/dL (0.2-1.2); Calc. Creatinine Clearance 0 mL/min (70-130); Calcium 9.5 mg/dL (7.8-10.44); Carbon Dioxide 20 mmol/L (22-29); Chloride 105 mmol/L (98-107); Estimated GFR 79; Glucose 259 mg/dL (70-105); Lipase 10 U/L (8-78); Potassium 3.8 mmol/L (3.5-5.1); Protein, Total 7.8 g/dL (6.0-8.3); Sodium 134 mmol/L (136-145)
[2023-04-11] MEDS ORDERED: Ondansetron PF 4 MG/2 ML Vial ONE (01:02)
[2023-04-11] MEDS ORDERED: Morphine 4 MG/ML VIAL ONE ×2 (01:02→03:36)
[2023-04-11] MEDS ORDERED: Dicyclomine 20 MG/2 ML VIAL ONE (01:31)
[2023-04-11 01:51] LABS: Bacteria/HPF None Seen HPF (None Seen); Bilirubin Negative (Negative); Blood, Urine Negative (Negative); CAUTI Indications for Culture Pelvic or flank pain; Clarity Clear (Clear); Glucose, Urine (Dipstick) 200 mg/dL (Negative); Ketone, Urine 40 mg/dL (Negative); Leukocyte Negative Leu/uL (Negative); Mucous/LPF 1+ LPF (<2+); Nitrite Negative (Negative); Protein, Urine (Dipstick) 70 mg/dL (Neg-Trace); RBC/HPF 0-3 HPF (0-3); Squamous Epithelial 0-3 HPF (0-3)
[2023-04-11 02:07] LABS: Urine Culture Reflex No No
[2023-04-11 02:09] LABS: SARS-CoV-2 NAA Rapid Test Not Detected (NotDetected)
[2023-04-11] MEDS ORDERED: Iopamidol-370 76% 500 ML MDV (1 ML CHARGE) ONE (12:18)
== END 2023-04-11 03:50 | disposition home or self-care (01) ==
LOC: ERS 22:56
DX: R10.13 Epigastric pain (principal); R11.2 Nausea with vomiting, unspecified; E11.9 Type 2 diabetes mellitus without complications; I10 Essential (primary) hypertension; Z79.84 Long term (current) use of oral hypoglycemic drugs; Z79.4 Long term (current) use of insulin; Z79.899 Other long term (current) drug therapy
CPT/HCPCS: 36415; 74177; 80053; 81001; 83690; 84703; 85025; 93005; 96361; 96372; 96374; 96375; 96376; J2270; J2405; Q9967; U0002

== ENCOUNTER 2023-04-28 09:41 | Outpatient (CLI) | payer OTHER | END 2023-04-28 09:42 | disposition home or self-care (01) | LOC: LABBT 09:41 | PROVIDERS: ATTEND Urology | DX: Z01.818 Encounter for other preprocedural examination (principal); N28.89 Other specified disorders of kidney and ureter; N20.0 Calculus of kidney; E11.69 Type 2 diabetes mellitus with other specified complication; E66.9 Obesity, unspecified | CPT/HCPCS: 71046 ==

== ENCOUNTER 2023-05-08 07:54 | Inpatient (IN) | payer OTHER ==
[2023-04-28 11:06] LABS: Mean Corpuscular HGB CONC 34.2 g/dL (32.0-36.0); Mean Corpuscular Hemoglobin 32.7 pg (27.0-33.0); Mean Corpuscular Volume 95.5 fl (81.6-98.3); Mean Platelet Volume 10.3 fl (7.4-10.4); Platelet Count 379 10x3/uL (150-450); RBC Distribution Width 12.7 % (11.5-14.5); Red Blood Cell (RBC) Count 3.98 10x6/uL (3.90-5.03)
[2023-04-28 11:14] LABS: Bilirubin Neg (Negative); Blood, Urine Negative (Negative); Clarity Clear (Clear); Glucose, Urine (Dipstick) 100 mg/dL (Negative); Ketone, Urine Negative (Negative); Leukocyte Negative (Negative); Nitrite Negative (Negative); Protein, Urine (Dipstick) Negative (Neg-Trace); Urobilinogen Normal mg/dL (Less than 2)
[2023-04-28 11:30] LABS: Bacteria/HPF Rare-Few HPF (None Seen); RBC/HPF 0-3 HPF (0-3); WBC/HPF 0-3 HPF (0-3)
[2023-04-28 11:38] LABS: BHCG - Serum Negative (NEGATIVE); Pregs Control Background? CLEAR/WHITE (CLR/WHITE); Pregs Control Bar Appear? YES (CONTROL BAR)
[2023-04-28 11:40] LABS: INR-International Normal Ratio 0.9; PTT 28.8 sec (22.0-33.0); Prothrombin Time 9.9 sec (9.5-12.1)
[2023-04-28 11:42] LABS: Anion Gap 13 mmol/L (10-20); BUN (Urea Nitrogen) 18 mg/dL (7.0-18.7); Calc. Creatinine Clearance 0 mL/min (70-130); Calcium 8.9 mg/dL (7.8-10.44); Carbon Dioxide 24 mmol/L (22-29); Chloride 102 mmol/L (98-107); Estimated GFR 71; Glucose 223 mg/dL (70-105); Potassium 3.9 mmol/L (3.5-5.1); Sodium 135 mmol/L (136-145)
[2023-05-08] MEDS ORDERED: fentaNYL 50 mcg/mL 1 mL Vial ONE ×3 (09:06→16:03)
[2023-05-08] MEDS ORDERED: Midazolam HCl 2 mg/2 ml Vial ONE (09:06)
[2023-05-08] MEDS ORDERED: Insulin Regular 300 UNITS/3 ML VIAL ONE (09:19)
[2023-05-08] MEDS ORDERED: Scopolamine 1 mg/72 hour Patch ONE (09:19)
[2023-05-08] MEDS ORDERED: Famotidine/PF 20 mg/2ml Vial ONE (09:19)
[2023-05-08] MEDS ORDERED: Lidocaine 1.5% w/Epi 1:200K 30 ML VIAL (Epid Use) ONE (09:26)
[2023-05-08] MEDS ORDERED: Moisturizing Cream (Eucerin) 113 GM JAR TOP PRN (10:00)
[2023-05-08] MEDS ORDERED: Naloxone HCl 0.4 mg/ml Vial IV PRN (10:00)
[2023-05-08] MEDS ORDERED: FENTANYL 1,000 MCG/20 ML VIAL 500 MCG, Bupivacaine 0.5% 15 ML in Sodium Chloride 0.9% 7... EPIDURAL SCH (10:00)
[2023-05-08] MEDS ORDERED: diphenhydrAMINE 25 MG CAP PO PRN (10:00)
[2023-05-08] MEDS ORDERED: diphenhydrAMINE 50 MG/ML VIAL IM PRN (10:00)
[2023-05-08] MEDS ORDERED: traMADol HCl 50 MG TAB PO PRN (10:00)
[2023-05-08] MEDS ORDERED: Naloxone HCl 0.4 mg/ml Vial IVP PRN (10:00)
[2023-05-08] MEDS ORDERED: Promethazine HCl 25 MG SUPP PR PRN (10:00)
[2023-05-08] MEDS ORDERED: PROPOFOL 20 ML ONE (11:34)
[2023-05-08] MEDS ORDERED: Fentanyl 250 MCG/5 ML VIAL ONE (11:34)
[2023-05-08] MEDS ORDERED: Lidocaine 1% PF 5 ML VIAL ONE (11:37)
[2023-05-08] MEDS ORDERED: Rocuronium Bromide 10 MG/ML (10ML VIAL) ONE (11:37)
[2023-05-08] MEDS ORDERED: SUCCINYLCHOLINE/SOD CL,ISO/PF 200 MG/10 ML SYRINGE FS ONE (11:37)
[2023-05-08] MEDS ORDERED: CEFAZOLIN 2 GM VIAL ONE (11:54)
[2023-05-08] MEDS ORDERED: Sodium Chloride 0.9% 100 ML ONE (11:54)
[2023-05-08] MEDS ORDERED: Albuterol HFA (OR) 200 PUFF INH ONE (13:16)
[2023-05-08] MEDS ORDERED: Ondansetron PF 4 MG/2 ML Vial ONE (13:16)
[2023-05-08] MEDS ORDERED: HYDROmorphone 2 MG/ML VIAL SLOW IVP PRN (13:38)
[2023-05-08] MEDS ORDERED: Ondansetron HCl/PF 4 MG/2 ML Vial IVP PRN (13:38)
[2023-05-08] MEDS ORDERED: SUGAMMADEX SODIUM 200 MG/2 ML VIAL ONE (15:07)
[2023-05-08] MEDS ORDERED: fentaNYL PF 100 MCG/2 ML SYRINGE ONE (15:08)
[2023-05-08] MEDS ORDERED: Mag-Al 1200 mg/1200 mg/30 ML UDCUP PO PRN (16:07)
[2023-05-08] MEDS ORDERED: hydrALAZINE 20 MG/ML VIAL SLOW IVP PRN (16:07)
[2023-05-08] MEDS ORDERED: Dextrose 50% Abboject 50 ML SYRINGE SLOW IVP PRN (16:07)
[2023-05-08] MEDS ORDERED: Glucagon 1 MG/ML KIT IM PRN (16:07)
[2023-05-08] MEDS ORDERED: Bisacodyl 10 MG SUPP PR PRN (16:07)
[2023-05-08] MEDS ORDERED: Insulin Regular 300 UNITS/3 ML VIAL SC PRN (16:07)
[2023-05-08] MEDS ORDERED: Dextrose 5% in Water 1,000 ML IV PRN (16:07)
[2023-05-08] MEDS ORDERED: Albuterol 200 PUFF (6.7GM INHALER) INH PRN (16:10)
[2023-05-08] MEDS ORDERED: Bupivacaine 0.25% HCL 30 ML VIAL ONE (16:19)
[2023-05-08 16:51] LABS: Hematocrit 36.5 % (36.0-47.0); Hemoglobin 12.3 g/dL (12.0-16.0); Manual Diff?? YES; Mean Corpuscular HGB CONC 33.7 g/dL (32.0-36.0); Mean Corpuscular Hemoglobin 32.2 pg (27.0-31.0); Mean Corpuscular Volume 95.5 fl (78.0-98.0); Mean Platelet Volume 10.6 fL (7.4-10.4); Platelet Count 328 10x3/uL (130-400); RBC Distribution Width 12.8 % (11.5-14.5); Red Blood Cell (RBC) Count 3.82 mill/uL (4.20-5.40); White Blood Cell (WBC) Count 30.6 10x3/uL (4.8-10.8)
[2023-05-08 16:57] LABS: Delete Auto Diff?? YES
[2023-05-08 17:03] LABS: Anion Gap 10 mmol/L (10-20); BUN (Urea Nitrogen) 19 mg/dL (7.0-18.7); Calc. Creatinine Clearance 105 mL/min (70-130); Carbon Dioxide 19 mmol/L (22-29); Chloride 110 mmol/L (98-107); Estimated GFR 68; Glucose 266 mg/dL (70-105); Potassium 3.4 mmol/L (3.5-5.1); Sodium 136 mmol/L (136-145)
[2023-05-08] MEDS: Sodium Chloride 0.9% 1,000 ML IV SCH (18:11)
[2023-05-08 18:25] LABS: Band 4 % (5-11); CellaVision Operator ID LAB.MJL; Lymphocytes 3 % (21-51); Monocytes 1 % (0-10); Neutrophil 92 % (42-75); Platelet Adequacy Comment Platelets Normal; RBC Morphology Within Normal Limits; Total Cell Count 100
[2023-05-08] MEDS: CEFAZOLIN 1 GM in Sodium Chloride 0.9% 100 ML IVPB SCH (19:45)
[2023-05-08] MEDS: Ondansetron PF 4 MG/2 ML Vial IVP PRN (19:46)
[2023-05-08] MEDS: traMADol HCl 50 MG TAB PO PRN (19:46)
[2023-05-08] MEDS: Metoclopramide 10 MG/10 ML UDCUP PO SCH (19:46)
[2023-05-08] MEDS: Insulin Glargine 30 UNITS/0.3 ML VIAL SC SCH (19:47)
[2023-05-08] MEDS: Docusate 100 MG CAP PO SCH (19:47)
[2023-05-08] MEDS: busPIRone HCl 5 MG TAB PO SCH (19:47)
[2023-05-08] MEDS: Atorvastatin Calcium 10 MG TAB PO SCH (19:47)
[2023-05-08] MEDS: Famotidine/PF 20 mg/2ml Vial SLOW IVP SCH (19:47)
[2023-05-08] MEDS: metFORMIN XR 500 MG ER.TAB PO SCH (20:13)
[2023-05-08] MEDS: HumaLOG 300 UNITS/3 ML VIAL SC SCH (20:20)
[2023-05-08] MEDS: HYDROcodone/Acetaminophen 5/325 mg Tablet PO PRN (21:15)
[2023-05-08] MEDS: Promethazine HCl 25 MG/ML VIAL IM PRN (21:25)
[2023-05-08] MEDS: diphenhydrAMINE 50 MG/ML VIAL IVP PRN (21:26)
[2023-05-09] MEDS: FENTANYL 500 MCG/10 ML VIAL 500 MCG, Bupivacaine 0.75% 10 ML in Sodium Chloride 0.9% 80 ML EPIDURAL SCH (06:18)
[2023-05-09 06:19] LABS: #Monocytes 1.2 thou/uL (0.11-0.59); #Neutrophils 17.2 thou/uL (1.40-6.50); %Basophils 0.2 % (0.0-1.0); %Lymphocytes 6.5 % (21.0-51.0); %Monocytes 6.2 % (0.0-10.0); %Neutrophils 86.5 % (42.0-75.0); Mean Corpuscular HGB CONC 32.4 g/dL (32.0-36.0); Mean Corpuscular Hemoglobin 31.8 pg (27.0-31.0); Mean Corpuscular Volume 98.1 fl (78.0-98.0); Mean Platelet Volume 10.8 fL (7.4-10.4); Platelet Count 302 10x3/uL (130-400); RBC Distribution Width 12.9 % (11.5-14.5); Red Blood Cell (RBC) Count 3.77 mill/uL (4.20-5.40); White Blood Cell (WBC) Count 19.9 10x3/uL (4.8-10.8)
[2023-05-09 08:49] LABS: Anion Gap 11 mmol/L (10-20); BUN (Urea Nitrogen) 21 mg/dL (7.0-18.7); Calc. Creatinine Clearance 61 mL/min (70-130); Calcium 7.9 mg/dL (7.8-10.44); Carbon Dioxide 20 mmol/L (22-29); Chloride 111 mmol/L (98-107); Estimated GFR 42; Glucose 132 mg/dL (70-105); Potassium 3.5 mmol/L (3.5-5.1); Sodium 140 mmol/L (136-145)
[2023-05-09] MEDS: Venlafaxine HCl XR 75 MG CAP PO SCH (09:46)
[2023-05-09] MEDS: Venlafaxine HCl XR 150 MG CAP PO SCH (09:47)
[2023-05-09] MEDS: Empagliflozin 25 MG TAB PO SCH (09:47)
[2023-05-09] MEDS: Montelukast Sodium 10 mg Tablet PO SCH (09:47)
[2023-05-09] MEDS: Ondansetron PF 4 MG/2 ML Vial IVP SCH (12:27)
[2023-05-09] MEDS: Metoclopramide 10 MG/10 ML UDCUP PO SCH (12:28)
[2023-05-09] MEDS: Sodium Chloride 0.9% 1,000 ML IV SCH (12:31)
[2023-05-09] MEDS: Promethazine HCl 25 MG SUPP PR SCH (12:46)
[2023-05-09] MEDS ORDERED: Promethazine HCl 25 MG SUPP PR SCH (13:00)
[2023-05-09] MEDS: Potassium Chloride 20 MEQ in Premix 1 BAG IVPB SCH (14:43)
[2023-05-09] MEDS ORDERED: hydrOXYzine 25 MG TAB PO PRN (15:24)
[2023-05-09] MEDS ORDERED: Acetaminophen 325 MG TAB PO PRN (15:24)
[2023-05-09] MEDS ORDERED: Calcium Carbonate 500 MG ChewTAB PO PRN (15:24)
[2023-05-10 05:25] VITALS: BMI 31.2
[2023-05-10 05:48] LABS: #Monocytes 1.1 thou/uL (0.11-0.59); #Neutrophils 14.2 thou/uL (1.40-6.50); %Basophils 0.1 % (0.0-1.0); %Lymphocytes 9.4 % (21.0-51.0); %Monocytes 6.7 % (0.0-10.0); %Neutrophils 83.5 % (42.0-75.0); Hematocrit 28.3 % (36.0-47.0); Hemoglobin 9.4 g/dL (12.0-16.0); Mean Corpuscular HGB CONC 33.2 g/dL (32.0-36.0); Mean Corpuscular Hemoglobin 32.3 pg (27.0-31.0); Mean Corpuscular Volume 97.3 fl (78.0-98.0); Platelet Count 220 10x3/uL (130-400); RBC Distribution Width 13.1 % (11.5-14.5); Red Blood Cell (RBC) Count 2.91 mill/uL (4.20-5.40)
[2023-05-10 06:12] LABS: Anion Gap 10 mmol/L (10-20); BUN (Urea Nitrogen) 19 mg/dL (7.0-18.7); Calc. Creatinine Clearance 61 mL/min (70-130); Calcium 7.5 mg/dL (7.8-10.44); Carbon Dioxide 20 mmol/L (22-29); Chloride 113 mmol/L (98-107); Estimated GFR 42; Glucose 169 mg/dL (70-105); Sodium 139 mmol/L (136-145)
[2023-05-10] MEDS: HYDROcodone/Acetaminophen 5/325 mg Tablet PO PRN (07:15)
[2023-05-11 06:51] LABS: #Neutrophils 13.3 thou/uL (1.40-6.50); %Basophils 0.2 % (0.0-1.0); %Eosinophils 0.1 % (0.0-10.0); %Lymphocytes 10.6 % (21.0-51.0); %Neutrophils 82.5 % (42.0-75.0); Hematocrit 27.6 % (36.0-47.0); Hemoglobin 8.8 g/dL (12.0-16.0); Mean Corpuscular HGB CONC 31.9 g/dL (32.0-36.0); Mean Corpuscular Hemoglobin 31.3 pg (27.0-31.0); Mean Corpuscular Volume 98.2 fl (78.0-98.0); Platelet Count 215 10x3/uL (130-400); RBC Distribution Width 12.9 % (11.5-14.5); Red Blood Cell (RBC) Count 2.81 mill/uL (4.20-5.40); White Blood Cell (WBC) Count 16.1 10x3/uL (4.8-10.8)
[2023-05-11 07:06] LABS: Anion Gap 8 mmol/L (10-20); BUN (Urea Nitrogen) 15 mg/dL (7.0-18.7); Calc. Creatinine Clearance 80 mL/min (70-130); Calcium 7.9 mg/dL (7.8-10.44); Carbon Dioxide 21 mmol/L (22-29); Chloride 111 mmol/L (98-107); Estimated GFR 58; Glucose 77 mg/dL (70-105); Potassium 3.5 mmol/L (3.5-5.1); Sodium 136 mmol/L (136-145)
[2023-05-11] MEDS: Sodium Chloride 0.9% 1,000 ML IV SCH (16:28)
[2023-05-12 06:12] LABS: #Basophils Less than 0.0 thou/uL (0.0-0.2); #Eosinphils 0.1 thou/uL (0.0-0.7); #Monocytes 0.8 thou/uL (0.11-0.59); #Neutrophils 9.7 thou/uL (1.40-6.50); %Basophils 0.2 % (0.0-1.0); %Eosinophils 0.9 % (0.0-10.0); %Lymphocytes 14.9 % (21.0-51.0); %Monocytes 6.2 % (0.0-10.0); %Neutrophils 77.4 % (42.0-75.0); Hematocrit 26.4 % (36.0-47.0); Hemoglobin 8.7 g/dL (12.0-16.0); Mean Corpuscular Hemoglobin 32.1 pg (27.0-31.0); Mean Corpuscular Volume 97.4 fl (78.0-98.0); Mean Platelet Volume 10.9 fL (7.4-10.4); Platelet Count 217 10x3/uL (130-400); RBC Distribution Width 12.8 % (11.5-14.5); Red Blood Cell (RBC) Count 2.71 mill/uL (4.20-5.40); White Blood Cell (WBC) Count 12.6 10x3/uL (4.8-10.8)
[2023-05-12 06:15] LABS: Anion Gap 8 mmol/L (10-20); BUN (Urea Nitrogen) 12 mg/dL (7.0-18.7); Calc. Creatinine Clearance 97 mL/min (70-130); Carbon Dioxide 21 mmol/L (22-29); Chloride 111 mmol/L (98-107); Estimated GFR 72; Glucose 67 mg/dL (70-105); Potassium 3.3 mmol/L (3.5-5.1); Sodium 137 mmol/L (136-145)
[2023-05-12] MEDS: Potassium Chloride 20 MEQ TAB PO SCH (09:31)
[2023-05-12] MEDS: Promethazine HCl 25 MG SUPP PR SCH (09:32)
[2023-05-12] MEDS: Metoclopramide HCl 10 MG TAB PO SCH (09:32)
[2023-05-12] MEDS: Senokot 8.6 MG TAB PO SCH (12:38)
[2023-05-12] MEDS: Zolpidem Tartrate 5 MG TAB PO PRN (21:32)
[2023-05-13 04:31] LABS: #Basophils 0.03 10x3/uL (0.0-0.2); %Basophils 0.2 % (0.0-1.0); %Eosinophils 1.3 % (0.0-10.0); %Lymphocytes 13.9 % (21.0-51.0); %Monocytes 5.8 % (0.0-10.0); %Neutrophils 78.4 % (42.0-75.0); Hematocrit 28.4 % (36.0-47.0); Hemoglobin 9.4 g/dL (12.0-16.0); Mean Corpuscular HGB CONC 33.1 g/dL (32.0-36.0); Mean Corpuscular Hemoglobin 31.8 pg (27.0-31.0); Mean Corpuscular Volume 95.9 fL (78.0-98.0); Mean Platelet Volume 10.4 fL (7.4-10.4); Platelet Count 277 10x3/uL (130-400); RBC Distribution Width 12.4 % (11.5-14.5); Red Blood Cell (RBC) Count 2.96 mill/uL (4.20-5.40)
[2023-05-13 05:12] LABS: Anion Gap 12 mmol/L (10-20); BUN (Urea Nitrogen) 10 mg/dL (7.0-18.7); Calc. Creatinine Clearance 101 mL/min (70-130); Calcium 8.4 mg/dL (7.8-10.44); Carbon Dioxide 20 mmol/L (22-29); Chloride 109 mmol/L (98-107); Estimated GFR 75; Glucose 76 mg/dL (70-105); Potassium 3.3 mmol/L (3.5-5.1); Sodium 138 mmol/L (136-145)
[2023-05-13 06:52] LABS: Magnesium 1.5 mg/dL (1.6-2.6); Phosphorus 1.6 mg/dL (2.3-4.7)
[2023-05-13] MEDS: Magnesium 2 GM/50 ML(in water) 2 GM in Premix 1 BAG IVPB SCH (10:12)
[2023-05-13] MEDS: Potassium Chloride 20 MEQ TAB PO SCH (11:10)
[2023-05-13] MEDS: Potassium Chloride 20 MEQ in Premix 1 BAG IVPB SCH (12:01)
[2023-05-14 05:28] LABS: #Basophils Less than 0.03 10x3/uL (0.0-0.2); %Basophils 0.2 % (0.0-1.0); %Eosinophils 1.8 % (0.0-10.0); %Lymphocytes 16.9 % (21.0-51.0); %Monocytes 6.9 % (0.0-10.0); %Neutrophils 73.8 % (42.0-75.0); Hematocrit 26.9 % (36.0-47.0); Hemoglobin 9.1 g/dL (12.0-16.0); Mean Corpuscular HGB CONC 33.8 g/dL (32.0-36.0); Mean Corpuscular Hemoglobin 32.2 pg (27.0-31.0); Mean Corpuscular Volume 95.1 fL (78.0-98.0); Mean Platelet Volume 10.1 fL (7.4-10.4); Platelet Count 319 10x3/uL (130-400); RBC Distribution Width 12.4 % (11.5-14.5); Red Blood Cell (RBC) Count 2.83 mill/uL (4.20-5.40)
[2023-05-14 05:47] LABS: Anion Gap 10 mmol/L (10-20); BUN (Urea Nitrogen) 9 mg/dL (7.0-18.7); Calc. Creatinine Clearance 113 mL/min (70-130); Calcium 8.5 mg/dL (7.8-10.44); Carbon Dioxide 24 mmol/L (22-29); Chloride 106 mmol/L (98-107); Estimated GFR 82; Glucose 107 mg/dL (70-105); Potassium 3.3 mmol/L (3.5-5.1); Sodium 137 mmol/L (136-145)
[2023-05-14 07:45] LABS: Magnesium 1.8 mg/dL (1.6-2.6)
[2023-05-14] MEDS ORDERED: Ondansetron ODT 8 MG TAB SL PRN (09:04)
[2023-05-14] MEDS: Metoclopramide HCl 10 MG TAB PO SCH (09:23)
[2023-05-14] MEDS: Potassium Chloride 20 MEQ in Premix 1 BAG IVPB SCH (09:29)
[2023-05-14 11:43] VITALS: BP 131/77; TEMP 97.8
== END 2023-05-14 15:41 | disposition home or self-care (01) | DRG 657 ==
LOC: SDC 07:54 → CCU 17:14 → IMCU/EMU 05-11 08:46 → SURG A 05-12 17:53
PROVIDERS: ADMIT Urology; ATTEND Urology
PROC: 0TB00ZZ Excision of Right Kidney, Open Approach (ICD-10-PCS; principal; 2023-05-08)
PROC: 5A09357 Assistance with Respiratory Ventilation, Less than 24 Consecutive Hours, Continuous Positive Airway Pressure (ICD-10-PCS; 2023-05-11)
DX: C64.1 Malignant neoplasm of right kidney, except renal pelvis (principal); N17.9 Acute kidney failure, unspecified; N28.89 Other specified disorders of kidney and ureter; J45.909 Unspecified asthma, uncomplicated; G47.33 Obstructive sleep apnea (adult) (pediatric); F41.9 Anxiety disorder, unspecified; I10 Essential (primary) hypertension; E78.5 Hyperlipidemia, unspecified; G89.29 Other chronic pain; N20.0 Calculus of kidney; I95.9 Hypotension, unspecified; E11.65 Type 2 diabetes mellitus with hyperglycemia; E11.43 Type 2 diabetes mellitus with diabetic autonomic (poly)neuropathy; R11.2 Nausea with vomiting, unspecified; R41.9 Unspecified symptoms and signs involving cognitive functions and awareness; K31.84 Gastroparesis; E87.6 Hypokalemia; Z96.0 Presence of urogenital implants; Z90.89 Acquired absence of other organs; Z79.899 Other long term (current) drug therapy
CPT/HCPCS: 36415; 36416; 80048; 81001; 82570; 83735; 84100; 84703; 85025; 85027; 85610; 85730; 86850; 86900; 86901; 87086; 88307; 93005; 93010; 94660; A4333; A4649; C1713; C1776; J0665; J0690; J1200; J1815; J2001; J2250; J2405; J2550; J2704; J3010; J3475; J3480; J3490; J7050; S0028

== ENCOUNTER 2023-12-13 10:53 | Emergency (ER) | payer OTHER ==
[2023-12-13] MEDS ORDERED: Morphine 4 MG/ML VIAL ONE (12:37)
[2023-12-13] MEDS ORDERED: Ondansetron ODT 4 MG TAB ONE (12:38)
[2023-12-13] MEDS ORDERED: Lidocaine 1% PF 5 ML VIAL ONE (12:38)
[2023-12-13 13:00] LABS: #Basophils 0.04 10x3/uL (0.0-0.2); %Basophils 0.3 % (0.0-1.0); %Eosinophils 1.5 % (0.0-10.0); %Lymphocytes 12.2 % (21.0-51.0); %Monocytes 4.9 % (0.0-10.0); %Neutrophils 80.7 % (42.0-75.0); Hematocrit 36.7 % (36.0-47.0); Hemoglobin 12.6 g/dL (12.0-16.0); Mean Corpuscular HGB CONC 34.3 g/dL (32.0-36.0); Mean Corpuscular Hemoglobin 31.5 pg (27.0-31.0); Mean Corpuscular Volume 91.8 fL (78.0-98.0); Mean Platelet Volume 9.8 fL (7.4-10.4); Platelet Count 374 10x3/uL (130-400); RBC Distribution Width 12.9 % (11.5-14.5)
[2023-12-13 13:34] LABS: ALT (SGPT) 30 U/L (8-55); AST (SGOT) 19 U/L (5-34); Albumin 3.3 g/dL (3.5-5.0); Alkaline Phosphatase 142 U/L (40-110); Anion Gap 12 mmol/L (10-20); BUN (Urea Nitrogen) 18 mg/dL (7.0-18.7); Bilirubin, Total 0.4 mg/dL (0.2-1.2); Calc. Creatinine Clearance 0 mL/min (70-130); Calcium 9.1 mg/dL (7.8-10.44); Carbon Dioxide 21 mmol/L (22-29); Chloride 107 mmol/L (98-107); Estimated GFR 56; Globulin 4.6 g/dL (2.4-3.5); Glucose 192 mg/dL (70-105); Potassium 3.5 mmol/L (3.5-5.1); Protein, Total 7.9 g/dL (6.0-8.3); Sodium 136 mmol/L (136-145)
[2023-12-13] MEDS ORDERED: HYDROcodone/Acetaminophen 10/325 mg Tablet ONE (14:02)
[2023-12-13] MEDS ORDERED: Clindamycin/D5W 600 mg/50 ml Premix Bag ONE (14:21)
== END 2023-12-13 15:05 | disposition home or self-care (01) ==
LOC: ERS 10:53
DX: L02.214 Cutaneous abscess of groin (principal); I10 Essential (primary) hypertension; E11.43 Type 2 diabetes mellitus with diabetic autonomic (poly)neuropathy; K31.84 Gastroparesis
CPT/HCPCS: 10060; 36415; 80053; 85025; 87070; 87077; 87186; 87205; 96372; 96374; J2272; J3490; Q0162

== ENCOUNTER 2024-02-06 23:07 | Emergency (ER) | payer OTHER ==
[2024-02-06 23:40] LABS: #Basophils 0.05 10x3/uL (0.0-0.2); %Basophils 0.3 % (0.0-1.0); %Eosinophils 0.3 % (0.0-10.0); %Lymphocytes 18.8 % (21.0-51.0); %Monocytes 4.9 % (0.0-10.0); %Neutrophils 75.4 % (42.0-75.0); Hematocrit 38.5 % (36.0-47.0); Hemoglobin 12.9 g/dL (12.0-16.0); Mean Corpuscular HGB CONC 33.5 g/dL (32.0-36.0); Mean Corpuscular Hemoglobin 29.7 pg (27.0-31.0); Mean Corpuscular Volume 88.5 fL (78.0-98.0); Mean Platelet Volume 10.1 fL (7.4-10.4); Platelet Count 453 10x3/uL (130-400); RBC Distribution Width 12.3 % (11.5-14.5); Red Blood Cell (RBC) Count 4.35 mill/uL (4.20-5.40)
[2024-02-07 00:05] LABS: ALT (SGPT) 12 U/L (8-55); AST (SGOT) 12 U/L (5-34); Albumin 3.7 g/dL (3.5-5.0); Alkaline Phosphatase 114 U/L (40-110); Anion Gap 15 mmol/L (10-20); BUN (Urea Nitrogen) 24 mg/dL (7.0-18.7); Bilirubin, Total 0.5 mg/dL (0.2-1.2); Calc. Creatinine Clearance 0 mL/min (70-130); Calcium 9.6 mg/dL (7.8-10.44); Carbon Dioxide 15 mmol/L (22-29); Chloride 111 mmol/L (98-107); Estimated GFR 49; Globulin 4.6 g/dL (2.4-3.5); Glucose 173 mg/dL (70-105); Lipase 9 U/L (8-78); Potassium 3.6 mmol/L (3.5-5.1); Protein, Total 8.3 g/dL (6.0-8.3); Sodium 137 mmol/L (136-145)
[2024-02-07] MEDS ORDERED: Ondansetron PF 4 MG/2 ML Vial ONE (01:00)
[2024-02-07] MEDS ORDERED: Morphine 4 MG/ML VIAL ONE (01:00)
[2024-02-07 01:59] LABS: Actual Bicarbonate (HCO3v) 17.5 mEq/L (22-28); Analyzer IN Cardio ER; Base Excess -5.5 mEq/L (-2.0 to +3.0); Chloride (VBG) 111 mmol/L (98-106); Hematocrit-VBG 36 % (36.0-47.0); Hemoglobin (Hb) 12.4 g/dL (11.7-15.5); Potassium (VBG) 3.55 mmol/L (3.70-5.30); Sodium 141 mmol/L (133-146); pH (venous) 7.425 (7.32-7.43)
[2024-02-07] MEDS ORDERED: Ketorolac Tromethamine 30 MG (1 mL) VIAL ONE (02:41)
[2024-02-07 04:24] LABS: Lactic Acid 0.82 mmol/L (0.5-2.2)
[2024-02-07 04:37] LABS: BHCG - Serum Negative (NEGATIVE); Pregs Control Background? CLEAR/WHITE (CLR/WHITE); Pregs Control Bar Appear? YES (CONTROL BAR)
[2024-02-07] MEDS ORDERED: Droperidol 5 MG/2 ML VIAL ONE (04:39)
[2024-02-07 05:22] LABS: Bacteria/HPF None Seen HPF (None Seen); Bilirubin Negative (Negative); Blood, Urine Trace (Negative); CAUTI Indications for Culture Pelvic or flank pain; Clarity Clear (Clear); Glucose, Urine (Dipstick) Normal (Negative); Ketone, Urine 40 mg/dL (Negative); Leukocyte 25 Leu/uL (Negative); Nitrite Negative (Negative); Pregnancy Test - Urine (BHCG) Negative (Negative); Protein, Urine (Dipstick) 50 mg/dL (Neg-Trace); RBC/HPF 0-3 HPF (0-3); Specific Gravity, Urine 1.027 (1.002-1.036); Squamous Epithelial 0-3 HPF (0-3)
[2024-02-07 05:23] LABS: Pregu Control Background? CLEAR/WHITE (CLR/WHITE); Pregu Control Bar Appear? YES (CONTROL BAR); Specific Gravity 1.027 (1.002-1.036); Urine Culture Reflex No No
[2024-02-07] MEDS ORDERED: Iopamidol 370 76% 100 ML VIAL ONE (09:43)
== END 2024-02-07 06:47 | disposition home or self-care (01) ==
LOC: ERS 23:07
DX: E11.43 Type 2 diabetes mellitus with diabetic autonomic (poly)neuropathy (principal); K31.84 Gastroparesis; E86.0 Dehydration; R11.2 Nausea with vomiting, unspecified; I10 Essential (primary) hypertension; J45.909 Unspecified asthma, uncomplicated; Z79.4 Long term (current) use of insulin; Z79.84 Long term (current) use of oral hypoglycemic drugs; Z79.51 Long term (current) use of inhaled steroids; Z79.899 Other long term (current) drug therapy
CPT/HCPCS: 36415; 74177; 80053; 81001; 81025; 82805; 83605; 83690; 84703; 85025; 87040; 87428; 96374; 96375; J1790; J1885; J2272; J2405; Q9967

== ENCOUNTER 2024-03-30 16:44 | Emergency (ER) | payer MEDICAID, OTHER | END 2024-03-30 18:05 | disposition home or self-care (01) | LOC: ERS 16:44 | DX: J11.1 Influenza due to unidentified influenza virus with other respiratory manifestations (principal); E11.9 Type 2 diabetes mellitus without complications; I10 Essential (primary) hypertension | CPT/HCPCS: 71045; 87428 ==

== ENCOUNTER 2024-09-15 20:52 | Emergency (ER) | payer MEDICAID ==
[2024-09-15 21:23] LABS: Bacteria/HPF None Seen HPF (None Seen); CAUTI Indications for Culture Pelvic or flank pain; Glucose, Urine (Dipstick) Normal (Negative); Leukocyte Negative Leu/uL (Negative); Protein, Urine (Dipstick) Negative (Neg-Trace); Specific Gravity, Urine 1.015 (1.002-1.036); WBC/HPF 0-3 HPF (0-3)
[2024-09-15 21:25] LABS: Urine Culture Reflex No No
[2024-09-15 21:31] LABS: #Basophils 0.05 10x3/uL (0.0-0.2); #Eosinophils Less than 0.03 10x3/uL (0.0-0.7); #Monocytes 0.86 10x3/uL (0.11-0.59); #Neutrophils 16.10 10x3/uL (1.40-6.50); %Basophils 0.3 % (0.0-1.0); %Eosinophils 0.1 % (0.0-10.0); %Lymphocytes 6.9 % (21.0-51.0); %Monocytes 4.7 % (0.0-10.0); %Neutrophils 87.6 % (42.0-75.0); Hematocrit 31.5 % (36.0-47.0); Hemoglobin 10.1 g/dL (12.0-16.0); Mean Corpuscular Hemoglobin 27.0 pg (27.0-31.0); Mean Corpuscular Volume 84.2 fL (78.0-98.0); Platelet Count 379 10x3/uL (130-400); Red Blood Cell (RBC) Count 3.74 mill/uL (4.20-5.40); White Blood Cell (WBC) Count 18.38 10x3/uL (4.8-10.8)
[2024-09-15] MEDS ORDERED: Ondansetron PF 4 MG/2 ML Vial ONE (21:39)
[2024-09-15] MEDS ORDERED: Ketorolac Tromethamine 30 MG (1 mL) VIAL ONE (21:39)
[2024-09-15 21:52] LABS: BHCG - Serum Negative (NEGATIVE); Pregs Control Background? CLEAR/WHITE (CLR/WHITE); Pregs Control Bar Appear? YES (CONTROL BAR)
[2024-09-15 21:55] LABS: ALT (SGPT) 10 U/L (Less than 34); AST (SGOT) 15 U/L (11-34); Albumin 3.7 g/dL (3.1-4.5); Alkaline Phosphatase 112 U/L (40-110); Anion Gap 12 mmol/L (10-20); BUN (Urea Nitrogen) 15 mg/dL (7.0-18.7); Bilirubin, Total 0.3 mg/dL (0.3-1.2); Calc. Creatinine Clearance 0 mL/min (70-130); Calcium 8.9 mg/dL (7.8-10.44); Carbon Dioxide 20 mmol/L (22-29); Chloride 111 mmol/L (98-107); Globulin 4.4 g/dL (2.4-3.5); Glucose 145 mg/dL (70-105); Lipase 14 U/L (8-78); Potassium 4.0 mmol/L (3.5-5.1); Sodium 139 mmol/L (136-145)
== END 2024-09-15 23:43 | disposition home or self-care (01) ==
LOC: ERS 20:52
DX: B34.9 Viral infection, unspecified (principal); R10.84 Generalized abdominal pain; R11.2 Nausea with vomiting, unspecified; I10 Essential (primary) hypertension; E11.9 Type 2 diabetes mellitus without complications; J45.909 Unspecified asthma, uncomplicated; Z79.4 Long term (current) use of insulin; Z79.84 Long term (current) use of oral hypoglycemic drugs; Z79.51 Long term (current) use of inhaled steroids; Z79.899 Other long term (current) drug therapy
CPT/HCPCS: 36415; 74177; 80053; 81001; 83605; 83690; 84703; 85025; 87040; 87086; 87428; 96374; 96375; J1885; J2270; J2405; J2543; Q9967

== ENCOUNTER 2024-10-11 00:22 | Inpatient (IN) | payer MEDICAID ==
[2024-10-11 00:50] LABS: #Basophils 0.04 10x3/uL (0.0-0.2); #Eosinophils 0.38 10x3/uL (0.0-0.7); #Monocytes 0.93 10x3/uL (0.11-0.59); #Neutrophils 14.68 10x3/uL (1.40-6.50); %Basophils 0.2 % (0.0-1.0); %Eosinophils 2.0 % (0.0-10.0); %Lymphocytes 14.8 % (21.0-51.0); %Monocytes 4.9 % (0.0-10.0); %Neutrophils 77.8 % (42.0-75.0); Hematocrit 33.1 % (36.0-47.0); Hemoglobin 10.6 g/dL (12.0-16.0); Mean Corpuscular Hemoglobin 27.0 pg (27.0-31.0); Mean Corpuscular Volume 84.2 fL (78.0-98.0); Platelet Count 386 10x3/uL (130-400); Red Blood Cell (RBC) Count 3.93 mill/uL (4.20-5.40); White Blood Cell (WBC) Count 18.88 10x3/uL (4.8-10.8)
[2024-10-11 00:57] LABS: BHCG - Serum Negative (NEGATIVE); Pregs Control Background? CLEAR/WHITE (CLR/WHITE); Pregs Control Bar Appear? YES (CONTROL BAR)
[2024-10-11 01:04] LABS: ALT (SGPT) 12 U/L (Less than 34); AST (SGOT) 20 U/L (11-34); Albumin 3.5 g/dL (3.1-4.5); Alkaline Phosphatase 121 U/L (40-110); Anion Gap 14 mmol/L (10-20); BUN (Urea Nitrogen) 20 mg/dL (7.0-18.7); Bilirubin, Total 0.2 mg/dL (0.3-1.2); Calc. Creatinine Clearance 0 mL/min (70-130); Calcium 8.6 mg/dL (7.8-10.44); Carbon Dioxide 20 mmol/L (22-29); Chloride 105 mmol/L (98-107); Globulin 4.1 g/dL (2.4-3.5); Glucose 136 mg/dL (70-105); Lipase 28 U/L (8-78); Potassium 4.3 mmol/L (3.5-5.1); Sodium 135 mmol/L (136-145)
[2024-10-11] MEDS ORDERED: Cefepime 2 GM VIAL ONE (02:43)
[2024-10-11 02:50] LABS: Osmolality, Serum 294 mOsm/kg (275-295)
[2024-10-11 03:47] LABS: Bacteria/HPF None Seen HPF (None Seen); CAUTI Indications for Culture Alt mental st,lethar; Glucose, Urine (Dipstick) Normal (Negative); Leukocyte Negative Leu/uL (Negative); Protein, Urine (Dipstick) 20 mg/dL (Neg-Trace); RBC/HPF Greater than 50 HPF (0-3); Specific Gravity, Urine 1.015 (1.002-1.036); WBC/HPF 0-3 HPF (0-3)
[2024-10-11 03:49] LABS: Urine Culture Reflex No No
[2024-10-11] MEDS: Vancomycin (BATCH) 2 GM Premix IVPB SCH (04:21)
[2024-10-11] MEDS ORDERED: Calcium Carbonate 500 MG ChewTAB PO PRN (05:18)
[2024-10-11] MEDS ORDERED: Dextrose 50% Abboject 50 ML SYRINGE SLOW IVP PRN (05:20)
[2024-10-11] MEDS ORDERED: Glucagon 1 MG/ML KIT IM PRN (05:20)
[2024-10-11] MEDS ORDERED: Ondansetron PF 4 MG/2 ML Vial ONE (06:27)
[2024-10-11] MEDS: Ondansetron PF 4 MG/2 ML Vial IVP PRN (06:34)
[2024-10-11] MEDS ORDERED: Electrolyte Replacement Protocol 1 EACH FS SCH (08:30)
[2024-10-11 08:55] VITALS: BMI 36.1
[2024-10-11] MEDS: Acetaminophen 325 MG TAB PO PRN (08:55)
[2024-10-11 08:56] LABS: Magnesium 2.0 mg/dL (1.6-2.6)
[2024-10-11] MEDS: Enoxaparin 40 MG (0.4 mL) SYRINGE SC SCH (10:41)
[2024-10-11] MEDS: PHOS-NAK 1 PKT PACK PO SCH (10:41)
[2024-10-11] MEDS: Magnesium 2 GM/50 ML(in water) 2 GM in Premix 1 BAG IVPB SCH (10:42)
[2024-10-11] MEDS: Vancomycin 1.5 GRAM/300 ML BAG IVPB SCH (10:56)
[2024-10-11] MEDS: Acetaminophen/Codeine 30-300mg Tablet PO PRN (13:23)
[2024-10-11] MEDS: Mometasone 200 MCG/Formoterol 5 MCG 120 PUFF INHALER INH SCH (18:56)
[2024-10-11] MEDS: Vancomycin 1.25 GM / NS 250 ML VIAL-2-BAG IVPB SCH (20:08)
[2024-10-11] MEDS: Melatonin 3 MG TAB PO PRN (20:08)
[2024-10-11] MEDS: Gabapentin 100 MG CAP PO SCH (20:08)
[2024-10-11] MEDS ORDERED: Non-Formulary Item 1 EACH (Fluticasone Propion/Salmeterol [Advair Diskus 250/50] 1 EACH B INH SCH (21:00)
[2024-10-12] MEDS ORDERED: Vancomycin 1.25 GM / NS 250 ML VIAL-2-BAG IVPB SCH (05:00)
[2024-10-12 05:14] LABS: #Basophils Less than 0.03 10x3/uL (0.0-0.2); #Eosinophils 0.15 10x3/uL (0.0-0.7); #Monocytes 0.59 10x3/uL (0.11-0.59); #Neutrophils 5.62 10x3/uL (1.40-6.50); %Basophils 0.2 % (0.0-1.0); %Eosinophils 1.8 % (0.0-10.0); %Lymphocytes 24.3 % (21.0-51.0); %Monocytes 7.0 % (0.0-10.0); %Neutrophils 66.5 % (42.0-75.0); Hematocrit 26.6 % (36.0-47.0); Hemoglobin 8.4 g/dL (12.0-16.0); Mean Corpuscular Hemoglobin 26.8 pg (27.0-31.0); Mean Corpuscular Volume 85.0 fL (78.0-98.0); Platelet Count 270 10x3/uL (130-400); Red Blood Cell (RBC) Count 3.13 mill/uL (4.20-5.40); White Blood Cell (WBC) Count 8.46 10x3/uL (4.8-10.8)
[2024-10-12 05:46] LABS: Vancomycin, Random 23.0 ug/mL (See Comment)
[2024-10-12 05:47] LABS: ALT (SGPT) 94 U/L (Less than 34); AST (SGOT) 89 U/L (11-34); Albumin 2.6 g/dL (3.1-4.5); Alkaline Phosphatase 104 U/L (40-110); Anion Gap 10 mmol/L (10-20); BUN (Urea Nitrogen) 12 mg/dL (7.0-18.7); Bilirubin, Total 0.3 mg/dL (0.3-1.2); Calc. Creatinine Clearance 122 mL/min (70-130); Calcium 7.7 mg/dL (7.8-10.44); Carbon Dioxide 20 mmol/L (22-29); Chloride 110 mmol/L (98-107); Globulin 3.4 g/dL (2.4-3.5); Glucose 129 mg/dL (70-105); Potassium 4.1 mmol/L (3.5-5.1); Sodium 136 mmol/L (136-145)
[2024-10-12] MEDS: Albuterol 200 PUFF (6.7GM INHALER) INH PRN (08:46)
[2024-10-12] MEDS ORDERED: Non-Formulary Item 1 EACH (Ferrous Gluconate [Ferrous Gluconate] 324 MG Tablet) PO SCH (09:00)
[2024-10-12] MEDS ORDERED: Non-Formulary Item 1 EACH (Escitalopram Oxalate [Escitalopram Oxalate] 5 MG Tablet) PO SCH ×2 (09:00)
[2024-10-12] MEDS: Pantoprazole 40 MG DR.TAB PO SCH (09:51)
[2024-10-12] MEDS: Ferrous Gluconate 324 MG TAB PO SCH (09:51)
[2024-10-12] MEDS: Metoclopramide HCl 10 MG (2 mL) VIAL IVP SCH (14:27)
[2024-10-13 05:53] LABS: Anion Gap 11 mmol/L (10-20); BUN (Urea Nitrogen) 10 mg/dL (7.0-18.7); Calc. Creatinine Clearance 122 mL/min (70-130); Calcium 8.0 mg/dL (7.8-10.44); Carbon Dioxide 19 mmol/L (22-29); Chloride 109 mmol/L (98-107); Glucose 108 mg/dL (70-105); Magnesium 2.1 mg/dL (1.6-2.6); Potassium 4.0 mmol/L (3.5-5.1); Sodium 135 mmol/L (136-145)
[2024-10-14 06:29] LABS: #Basophils 0.04 10x3/uL (0.0-0.2); #Eosinophils 0.19 10x3/uL (0.0-0.7); #Monocytes 0.54 10x3/uL (0.11-0.59); #Neutrophils 5.65 10x3/uL (1.40-6.50); %Basophils 0.5 % (0.0-1.0); %Eosinophils 2.2 % (0.0-10.0); %Lymphocytes 26.9 % (21.0-51.0); %Monocytes 6.1 % (0.0-10.0); %Neutrophils 64.0 % (42.0-75.0); Hematocrit 29.7 % (36.0-47.0); Hemoglobin 9.1 g/dL (12.0-16.0); Mean Corpuscular Hemoglobin 26.1 pg (27.0-31.0); Mean Corpuscular Volume 85.1 fL (78.0-98.0); Platelet Count 328 10x3/uL (130-400); Red Blood Cell (RBC) Count 3.49 mill/uL (4.20-5.40); White Blood Cell (WBC) Count 8.82 10x3/uL (4.8-10.8)
[2024-10-14 06:46] LABS: ALT (SGPT) 48 U/L (Less than 34); AST (SGOT) 22 U/L (11-34); Albumin 3.0 g/dL (3.1-4.5); Alkaline Phosphatase 110 U/L (40-110); Anion Gap 14 mmol/L (10-20); BUN (Urea Nitrogen) 9 mg/dL (7.0-18.7); Bilirubin, Total 0.2 mg/dL (0.3-1.2); Calc. Creatinine Clearance 131 mL/min (70-130); Calcium 8.6 mg/dL (7.8-10.44); Carbon Dioxide 18 mmol/L (22-29); Chloride 109 mmol/L (98-107); Globulin 3.8 g/dL (2.4-3.5); Glucose 101 mg/dL (70-105); Magnesium 2.0 mg/dL (1.6-2.6); Potassium 3.8 mmol/L (3.5-5.1); Sodium 137 mmol/L (136-145)
[2024-10-14] MEDS: Magnesium 2 GM/50 ML(in water) 2 GM in Premix 1 BAG IVPB SCH (08:29)
[2024-10-14 08:36] VITALS: BP 149/89; TEMP 98.2
[2024-10-14] MEDS ORDERED: CEFAZOLIN 1 GM VIAL SLOW IVP SCH (09:00)
[2024-10-14] MEDS: Cephalexin 250 MG CAP PO SCH (13:55)
== END 2024-10-14 14:15 | disposition home or self-care (01) | DRG 872 ==
LOC: ERS 00:22 → ERHOLD 03:38 → T4-A 08:02
PROVIDERS: ADMIT Family Medicine; ATTEND Internal Medicine
DX: A41.9 Sepsis, unspecified organism (principal); L03.116 Cellulitis of left lower limb; N17.9 Acute kidney failure, unspecified; E87.20 Acidosis, unspecified; E11.43 Type 2 diabetes mellitus with diabetic autonomic (poly)neuropathy; G47.33 Obstructive sleep apnea (adult) (pediatric); E78.5 Hyperlipidemia, unspecified; K31.84 Gastroparesis; F41.9 Anxiety disorder, unspecified; F32.A Depression, unspecified; I12.9 Hypertensive chronic kidney disease with stage 1 through stage 4 chronic kidney disease, or unspecified chronic kidney disease; E11.22 Type 2 diabetes mellitus with diabetic chronic kidney disease; N18.2 Chronic kidney disease, stage 2 (mild); E86.0 Dehydration; J45.909 Unspecified asthma, uncomplicated; Z87.442 Personal history of urinary calculi; Z98.890 Other specified postprocedural states; Z90.49 Acquired absence of other specified parts of digestive tract; Z83.3 Family history of diabetes mellitus; Z79.82 Long term (current) use of aspirin; Z79.899 Other long term (current) drug therapy; Z79.4 Long term (current) use of insulin; Z79.84 Long term (current) use of oral hypoglycemic drugs; D50.9 Iron deficiency anemia, unspecified
CPT/HCPCS: 36415; 36416; 80048; 80053; 80202; 81001; 83605; 83690; 83735; 83930; 84100; 84484; 84703; 85025; 87040; 87081; 87086; 93005; 96374; 96375; J0690; J0692; J1650; J1815; J2270; J2405; J2765; J3373; J3475; J7030; J7050; Q0162